=== PATIENT | female | born 1930 | race Caucasian/White ===

== ENCOUNTER 2016-10-10 13:32 | Emergency (ER) | payer BC ==
[~2016-10-10] VITALS: Ht 172.7 cm; Wt 97.0 kg
[~2016-10-10 13:32] MED LIST: ACET-1256 PO; ATOR10TA82 PO; BIOT1CAP4 PO; CAND32TA2 PO; CHOL20009 PO; COEN1CAP10 PO; CTP/1 PO; FAMO20TA11 PO; FLNIN/ NAE; MAGNTAB4 PO; NEBI20TA2 PO; PLN5 PO; RIVA1TAB4 PO; TRIA37.5 PO
[2016-10-10 13:41] VITALS: TEMP 37.5; Ht 172.7 cm; Wt 97.0 kg
[2016-10-10] MEDS ORDERED: ACETAMINOPHEN 325 MG TAB PO STA (13:48)
[2016-10-10] MEDS ORDERED: ONDANSETRON INJ 2 MG/ML 2 ML VIAL IV PRN (14:00)
[2016-10-10] MEDS ORDERED: SODIUM CHLORIDE 0.9% 1000ML 1,000 ML IV ONE (14:00)
--- NOTE | 2016-10-10 14:01 | EMERGENCY ROOM VISIT NOTE ---
History Report prepared by Chelsie: Codey Gonzales Under the Supervision of: Dr. Gopi Marie M.D. First contact with patient: 13:38 Stated Complaint: SHOULDER PAIN History of Present Illness The patient is an 86 year old female who presents to the Emergency Room with complaints of constant nausea beginning four days ago. She rates her current discomfort a 4/10 in severity. The patient states that she had surgery on her shoulder four days ago and was given oxycodone. She notes that she is still in pain, and she increased her dosage to the recommended amount because she was originally taking half. She states that she was given Zofran for nausea, but does not know if it is helping because she is still feeling sick. The patient notes that she has been avoiding fluids because it makes her go to the bathroom. She reports that it is painful to move because she had an IV in the top of her foot during surgery. The patient states that she has only take Tylenol before, other than her prescribed narcotics, because her doctor told her to avoid Motrin since she has a history of hypertension. She notes that she just started Xarelto yesterday. The patient states that she has a history of a mastectomy. She reports that when she was on Vicodin she vomited and went into atrial fibulation. Source of History: patient Onset: 4 days ago Position: other (global) Symptom Intensity: 4/10 Quality: other (nausea) Timing: constant Note: Associated symptoms: shoulder and foot pain Review of Systems All systems have been listed, reviewed, and are negative other than those previously mentioned. Please see Additional Medical History Sheet. Past Medical & Surgical Medical Problems: (1) Atrial fibrillation (2) Carcinoma in situ (3) Hemangioma Surgical Problems: (1) H/O mastectomy (2) H/O: hysterectomy (3) S/P total knee replacement Family History Cancer Heart disease Social History Smoking Status: Never Smoker Alcohol Use: none Drug Use: none Marital Status: Housing Status: lives with family Occupation Status: retired Current/Historical Medications Scheduled Acetaminophen (Tylenol), 1,000 MG PO PRN Atorvastatin (Lipitor), 10 MG PO QPM Candesartan Cilexetil (Atacand), 32 MG PO QAM Cholecalciferol (Vitamin D), 2,000 INTER.UNIT PO QAM Clonidine Hcl (Catapres), 0.1 MG PO BID Clotrimazole W/ Betamethasone (Lotrisone), 1 APPLN TOP BID Famotidine (Pepcid), 20 MG PO QAM Felodipine (Felodipine ER), 5 MG PO BID Fluticasone Propionate (Fluticasone Propionate), 1 SPRAYS VALERIE QAM Magnesium Chloride (Slow-Mag Tab), 64 MG PO DAILY Nebivolol Hcl (Bystolic), 20 MG PO QAM Rivaroxaban (Xarelto), 20 MG PO QPM Tamoxifen (Nolvadex), 20 MG PO DAILY Triamterene/Hctz (Dyazide 37.5MG/25MG), 1 TAB PO QAM Scheduled PRN Oxycodone Ir (Roxicodone Ir), 1 TAB PO Q4H PRN for Severe Pain Allergies Coded Allergies: Amlodipine (Verified Allergy, Unknown, UNKNOWN, 10/10/16) Benazepril (Verified Allergy, Unknown, UNKNOWN, 10/10/16) Ciprofloxacin (Verified Allergy, Unknown, DIZZY, 10/10/16) Enalapril (Verified Allergy, Unknown, UNKNOWN, 10/10/16) Lisinopril (Verified Allergy, Unknown, UNKNOWN, 10/10/16) Metoprolol (Verified Allergy, Unknown, DIZZY,DEPRESSED, 10/10/16) Phenobarbital (Verified Allergy, Unknown, HIVES, 10/10/16) Simvastatin (Verified Allergy, Unknown, PT NOT AWARE HAVING TAKEN MED-NO INFORMATION, 10/10/16) Spironolactone (Verified Allergy, Unknown, UNKNOWN, 10/10/16) Tramadol (Verified Allergy, Unknown, NAUSEA, 10/10/16) Codeine (Verified Adverse Reaction, Mild, HEADACHE,NAUSEA AND VOMITING, ) Hydrocodone (Verified Adverse Reaction, Mild, EXTENDED NAUSEA AND VOMITING , 10/10/16) Physical Exam Vital Signs Date Time Temp Pulse Resp B/P Pulse Ox O2 Delivery O2 Flow Rate FiO2 10/10/16 16:30 67 18 164/54 95 10/10/16 14:33 64 18 171/82 94 Room Air 10/10/16 13:41 37.5 88 153/80 92 Room Air Physical Exam GENERAL: Patient awake, alert, oriented x 3. Patient follows commands. Patient does not appear toxic. Patient is adequately hydrated and well- nourished. SKIN: No erythema, pallor, cyanosis or rash HEENT: Normal head, pupils equal, reactive to light and accommodation. LUNGS: Clear to auscultation. No wheezes, no rales, no rhonchi. HEART: No murmurs. No gallops. No rubs ABDOMEN: No masses, no rebound, no hepatomegaly or splenomegaly. Vague tenderness, obese EXTREMITIES: No signs of trauma. No pedal or pretibial edema. No calf or thigh tenderness. Left shoulder is bandaged and in a sling. Left foot: small puncture wound on the dorsum side, no erythema or edema. NEUROLOGIC: Cranial nerves II-XII within normal limits. No gross motor sensory function deficits. Medical Decision & Procedures Laboratory Results 10/10/16 14:00 10/10/16 14:00 Test 10/10/16 14:00 Red Blood Count 2.97 M/uL (4.2-5.4) Mean Corpuscular Volume 95.3 fL (80-100) Mean Corpuscular Hemoglobin 31.0 pg (25-34) Mean Corpuscular Hemoglobin Concent 32.5 g/dl (32-36) RDW Standard Deviation 43.5 fL (36.4-46.3) RDW Coefficient of Variation 12.6 % (11.5-14.5) Mean Platelet Volume 10.0 fL (7.4-10.4) Anion Gap 5.0 mmol/L (3-11) Est Creatinine Clear Calc Drug Dose 58.9 ml/min Estimated GFR () 72.4 Estimated GFR (Non- 62.5 BUN/Creatinine Ratio 23.6 (10-20) Calcium Level 8.6 mg/dl (8.5-10.1) Troponin I 0.027 ng/ml (0-0.045) Laboratory results as stated above per my review. Medications Administered Medications (Trade) Dose Ordered Sig/Jose Cruz Route Start Time Stop Time Status Last Admin Dose Admin Ondansetron HCl 4 mg 4 mg Q1HWA PRN IV 10/10/16 14:00 10/10/16 16:42 DC 10/10/16 14:10 4 MG Sodium Chloride (Nss 1000ml) 1,000 ml @ 1,000 mls/hr Q1H ONCE IV 10/10/16 14:00 10/10/16 14:59 DC 10/10/16 14:10 1,000 MLS/HR Acetaminophen (Tylenol Tab) 1,000 mg NOW STAT PO 10/10/16 13:48 10/10/16 13:50 DC 10/10/16 14:10 1,000 MG ECG Indication: nausea Rate (beats per minute): 66 Rhythm: sinus rhythm Findings: PVC (occasional), no acute ischemic change ED Course 1340: Past medical records reviewed. The patient was evaluated in room A03. A complete history and physical examination was performed. 1348: Ordered Acetaminophen 1000mg PO 1400: Ordered Sodium Chloride 1000 ml @ 1000 mls/hr IV, Zofran Inj 4mg IV 1450: I reevaluated the patient, and I discussed her exam findings. She is feeling better, but she still has discomfort. The patient requests that she be evaluated for further treatment. 1534: Upon reevaluation, the patient appeared to have improvement of her symptoms. She verbalized agreement of the treatment plan. The patient was discharged home. Medical Decision I considered multiple diagnoses including: medical reaction, dehydration, metabolic disorder. Medication Reconciliation: I attest that I have personally reviewed the patient' s current medication list. Blood pressure Screening: Patient was found to have normal blood pressure on screening and does not require follow up. Multiple labs were obtained. Please see above. The patient was given IV Zofran and fluids. Patient also has some tenderness over the dorsum of her left foot where the IV was. She does not appear to have cellulitis or abscess.The patient improved. She was given oral Tylenol. The patient has gastric irritation from the narcotics. She also cannot take NSAIDs. Patient will have to take Tylenol for pain relief. She has Zofran at home for home use. We also investigated the possibility of observation at the rehabilitation hospital. She does not qualify. We've also investigated having home health come to her house. Impression Primary Impression: Medication reaction Additional Impressions: Anemia Postoperative pain, acute, shoulder Scribe Attestation The scribe's documentation has been prepared under my direction and personally reviewed by me in its entirety. I confirm that the note above accurately reflects all work, treatment, procedures, and medical decision making performed by me. Departure Information Dispostion Home / Self-Care Referrals Isiah Mojica M.D. (PCP) Alonzo Duarte, DO Additional Instructions 1000 mg of Tylenol every 4-6 hours as needed for pain. Drink extra fluids. Zofran as needed for nausea. Follow-up with orthopedics as scheduled. Stop all narcotics. Problem Qualifiers
[2016-10-10 14:18] LABS: HEMATOCRIT 28.3 % (37-47); MEAN CELL VOLUME 95.3 fL (80-100); MEAN CORPUSCULAR HGB CONC 32.5 g/dl (32-36); PLATELET COUNT 240 K/uL (130-400); RED BLOOD COUNT 2.97 M/uL (4.2-5.4); WHITE BLOOD COUNT 10.63 K/uL (4.8-10.8)
[2016-10-10 14:35] LABS: BUN/CREATININE RATIO 23.6 (10-20); CALCIUM 8.6 mg/dl (8.5-10.1); CREATININE 0.85 mg/dl (0.60-1.20); POTASSIUM 4.6 mmol/L (3.5-5.1)
[2016-10-10] MEDS ORDERED: SLWMEC PO (15:35)
[2016-10-10] MEDS ORDERED: TAMO20TA9 PO (15:38)
[2016-10-10] MEDS ORDERED: CLOTCRE33 TOP (15:38)
[2016-10-10] MEDS ORDERED: OXYC1TAB3 PO (15:39)
[2016-10-10 16:30] VITALS: BP 164/54; PULSE 67; O2SAT 95
[2016-10-15] MEDS ORDERED: TRAM-10 PO (15:34)
== END 2016-10-10 16:32 | disposition home or self-care (01) ==
LOC: EDBD 13:32 → C.EDA 13:33
DX: T88.7XXA Unspecified adverse effect of drug or medicament, initial encounter (principal); D64.9 Anemia, unspecified; G89.18 Other acute postprocedural pain; I49.3 Ventricular premature depolarization; I48.91 Unspecified atrial fibrillation; Z79.899 Other long term (current) drug therapy; Z82.49 Family history of ischemic heart disease and other diseases of the circulatory system; R11.0 Nausea

== ENCOUNTER 2016-10-12 12:39 | Inpatient (IN) | payer BC, OTHER ==
[~2016-10-12] VITALS: Ht 152.4 cm; Wt 95.1 kg
[~2016-10-12 12:39] MED LIST changes: -BIOT1CAP4 PO; +CLOTCRE33 TOP; -COEN1CAP10 PO; -MAGNTAB4 PO; +OXYC1TAB3 PO; +SLWMEC PO; +TAMO20TA9 PO
[2016-10-12] MEDS ORDERED: SODIUM CHLORIDE 0.9% 1000ML 1,000 ML IV STA (13:47)
[2016-10-12 14:18] LABS: URINE APPEARANCE CLEAR (CLEAR); URINE BILIRUBIN NEG (NEG); URINE COLOR YELLOW; URINE NITRITE NEG (NEG); URINE PH 8.5 (4.5-7.5); URINE SPECIFIC GRAVITY 1.008 (1.000-1.030); UROBILINOGEN NEG (NEG); ZZUR CULT IF INDIC CLEAN CATCH NO
[2016-10-12 14:28] LABS: MANUAL MICROSCOPIC REQUIRED? NO; REVIEW REQ? NO
--- NOTE | 2016-10-12 14:29 | EMERGENCY ROOM VISIT NOTE ---
History First contact with patient: 13:34 Chief Complaint: NAUSEA Stated Complaint: NAUSEA Nursing Triage Summary: Total left shoulder replacement a week ago, placed on oxycodone and is allergic to opiates, no BM in a week, nauseated with emesis earlier in week. Seen here in ED on Tuesday for vomiting. Now nauseated again without emesis today. Dizzy on standing. History of Present Illness The patient is a 86 year old female who presents to the Emergency Room with complaints of nausea and dizziness. The patient had a left shoulder replacement 1 week ago in [facility]. She reports that the surgery had to be performed at [facility] because she has hemangiomas in her throat and no one in the area will intubate her. She does report that her shoulder is painful. She has been taking Tylenol for pain because she has adverse reactions to the oxycodone. She states she also has plantar fasciitis in her left foot which makes it very difficult to walk. She was told that she is allowed to change the dressing and shower, but she is not able to do this due to discomfort. She has not had a bowel movement for one week. She states that her abdomen feels "gassy" and bloated. She states that when she stands up and walks around, she becomes nauseous and dizzy. She states that she feels okay when she is lying down. She has not had much to eat or drink. She was seen here 2 days ago and was told to take Zofran for nausea but states that she has not been taking this because she does not feel like she needs it. She denies any headaches, neck pain, fevers or vomiting. The patient has a history of intermittent atrial fibrillation. She also reports a history of arthritis. Review of Systems A complete 10 point review of systems was reviewed with the patient with pertinent positives and negatives as per history of present illness. All else were negative. 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 (4) Hemangioma (5) Orthostatic hypotension Surgical Problems: (1) H/O mastectomy (2) H/O: hysterectomy (3) S/P total knee replacement Family History Cancer Heart disease Social History Smoking Status: Never Smoker Alcohol Use: none Drug Use: none Marital Status: Housing Status: lives with family Occupation Status: retired Current/Historical Medications Scheduled Acetaminophen (Tylenol), 1,000 MG PO PRN Atorvastatin (Lipitor), 10 MG PO QPM Candesartan Cilexetil (Atacand), 32 MG PO QAM Cholecalciferol (Vitamin D), 2,000 INTER.UNIT PO QAM Clonidine Hcl (Catapres), 0.1 MG PO BID Clotrimazole W/ Betamethasone (Lotrisone), 1 APPLN TOP BID Famotidine (Pepcid), 20 MG PO QAM Felodipine (Felodipine ER), 5 MG PO BID Fluticasone Propionate (Fluticasone Propionate), 1 SPRAYS VALERIE QAM Magnesium Chloride (Slow-Mag Tab), 64 MG PO DAILY Nebivolol Hcl (Bystolic), 20 MG PO QAM Rivaroxaban (Xarelto), 20 MG PO QPM Tamoxifen (Nolvadex), 20 MG PO DAILY Triamterene/Hctz (Dyazide 37.5MG/25MG), 1 TAB PO QAM Scheduled PRN Oxycodone Ir (Roxicodone Ir), 1 TAB PO Q4H PRN for Severe Pain Allergies Coded Allergies: Phenobarbital (Verified Allergy, Intermediate, HIVES, 10/12/16) Amlodipine (Verified Allergy, Unknown, UNKNOWN, 10/10/16) Benazepril (Verified Allergy, Unknown, UNKNOWN, 10/10/16) Enalapril (Verified Allergy, Unknown, UNKNOWN, 10/10/16) Lisinopril (Verified Allergy, Unknown, UNKNOWN, 10/10/16) Simvastatin (Verified Allergy, Unknown, PT NOT AWARE HAVING TAKEN MED-NO INFORMATION, 10/10/16) Spironolactone (Verified Allergy, Unknown, UNKNOWN, 10/10/16) Codeine (Verified Adverse Reaction, Mild, HEADACHE,NAUSEA AND VOMITING, ) Hydrocodone (Verified Adverse Reaction, Mild, EXTENDED NAUSEA AND VOMITING , 10/10/16) Tramadol (Verified Adverse Reaction, Mild, NAUSEA, 10/12/16) Ciprofloxacin (Verified Adverse Reaction, Unknown, DIZZY, 10/12/16) Metoprolol (Verified Adverse Reaction, Unknown, DIZZY,DEPRESSED, 10/12/16) Physical Exam Vital Signs Date Time Temp Pulse Resp B/P Pulse Ox O2 Delivery O2 Flow Rate FiO2 10/12/16 16:33 77 20 159/67 95 Room Air 10/12/16 14:22 66 221/70 69 182/86 80 150/98 10/12/16 14:18 150/98 10/12/16 14:17 182/86 10/12/16 14:15 221/70 10/12/16 13:39 67 18 99 10/12/16 13:18 211/101 10/12/16 13:09 78 20 10/12/16 12:55 73 10/12/16 12:52 36.7 73 23 100 Room Air Physical Exam VITALS: Vitals are noted on the nurse's note and reviewed by myself. Vital signs stable. GENERAL: This is an 86-year-old female, in no acute distress, nondiaphoretic, well-developed well-nourished. SKIN: There is a well-healing surgical incision over the anterior left shoulder. There is no surrounding erythema or edema to suggest infection. EARS: External auditory canals clear, tympanic membranes pearly rosas without erythema or effusion bilaterally. EYES: Pupils equal round and reactive to light and accommodation. MOUTH: Mucous membranes slightly dry. HEART: Regular rate and rhythm without murmurs gallops or rubs. LUNGS: Clear to auscultation bilaterally without wheezes, rales or rhonchi. ABDOMEN: Mildly distended but soft. There is no significant tenderness to palpation. NEURO: Patient was alert and oriented to person place and time. Medical Decision & Procedures ER Provider Diagnostic Interpretation: PA CHEST WITH ABDOMINAL SERIES FINDINGS: A PA chest radiograph is compared to study dated 07/11/2014. The heart is enlarged and there is atherosclerotic calcification of the thoracic aorta. The pulmonary vasculature is noncongested. Chronic interstitial thickening is unchanged. There is no airspace consolidation or large pleural effusion. No pneumothorax is seen. The skeletal structures are osteopenic. Degenerative change and scoliosis are noted in the thoracic spine. A left shoulder arthroplasty is in place and skin clips project over the left shoulder. Surgical clips are noted in the right axilla. Supine and erect abdominal radiographs are obtained. No prior studies are available for comparison at the time of dictation. There is a nonobstructed abdominal bowel gas pattern. Mild to moderate colonic fecal retention is observed. No evidence of intraperitoneal free air is seen. Phleboliths are identified in the pelvis. There is lumbosacral spondylosis and scoliosis. The bony pelvis appears intact. IMPRESSION: 1. Cardiomegaly with no acute cardiopulmonary abnormality. 2. Nonobstructed abdominal bowel gas pattern. Laboratory Results 10/12/16 14:09 Red Blood Count 3.20, Mean Corpuscular Volume 92.8, Mean Corpuscular Hemoglobin 29.7, Mean Corpuscular Hemoglobin Concent 32.0, Mean Platelet Volume 9.6, Neutrophils (%) (Auto) 64.6, Lymphocytes (%) (Auto) 25.6, Monocytes (%) (Auto) 8.5, Eosinophils (%) (Auto) 0.6, Basophils (%) (Auto) 0.4, Neutrophils # (Auto) 6.26, Lymphocytes # (Auto) 2.48, Monocytes # (Auto) 0.82, Eosinophils # (Auto) 0.06, Basophils # (Auto) 0.04 10/12/16 14:09 10/12/16 15:30 Test 10/12/16 13:10 10/12/16 14:09 10/12/16 15:30 Urine Color YELLOW Urine Appearance CLEAR (CLEAR) Urine pH 8.5 (4.5-7.5) Urine Specific [place] 1.008 (1.000-1.030) Urine Protein NEG (NEG) Urine Glucose (UA) NEG (NEG) Urine Ketones NEG (NEG) Urine Occult Blood NEG (NEG) Urine Nitrite NEG (NEG) Urine Bilirubin NEG (NEG) Urine Urobilinogen NEG (NEG) Urine Leukocyte Esterase NEG (NEG) White Blood Count 9.69 K/uL (4.8-10.8) Red Blood Count 3.20 M/uL (4.2-5.4) Hemoglobin 9.5 g/dL (12.0-16.0) Hematocrit 29.7 % (37-47) Mean Corpuscular Volume 92.8 fL (80-100) Mean Corpuscular Hemoglobin 29.7 pg (25-34) Mean Corpuscular Hemoglobin Concent 32.0 g/dl (32-36) Platelet Count 339 K/uL (130-400) Mean Platelet Volume 9.6 fL (7.4-10.4) Neutrophils (%) (Auto) 64.6 % Lymphocytes (%) (Auto) 25.6 % Monocytes (%) (Auto) 8.5 % Eosinophils (%) (Auto) 0.6 % Basophils (%) (Auto) 0.4 % Neutrophils # (Auto) 6.26 K/uL (1.4-6.5) Lymphocytes # (Auto) 2.48 K/uL (1.2-3.4) Monocytes # (Auto) 0.82 K/uL (0.11-0.59) Eosinophils # (Auto) 0.06 K/uL (0-0.5) Basophils # (Auto) 0.04 K/uL (0-0.2) RDW Standard Deviation 42.6 fL (36.4-46.3) RDW Coefficient of Variation 12.5 % (11.5-14.5) Immature Granulocyte % (Auto) 0.3 % Immature Granulocyte # (Auto) 0.03 K/uL (0.00-0.02) Anion Gap 7.0 mmol/L (3-11) Est Creatinine Clear Calc Drug Dose 48.7 ml/min Estimated GFR () 72.4 Estimated GFR (Non- 62.5 BUN/Creatinine Ratio 15.3 (10-20) Calcium Level 8.9 mg/dl (8.5-10.1) Total Bilirubin 0.9 mg/dl (0.2-1) Alanine Aminotransferase (ALT/SGPT) 19 U/L (12-78) Alkaline Phosphatase 32 U/L (45-117) Total Protein 6.4 gm/dl (6.4-8.2) Albumin 3.0 gm/dl (3.4-5.0) Globulin 3.4 gm/dl (2.5-4.0) Albumin/Globulin Ratio 0.9 (0.9-2) Thyroid Stimulating Hormone (TSH) 1.910 uIu/ml (0.300-4.500) Magnesium Level 2.1 mg/dl (1.8-2.4) Aspartate Amino Transf (AST/SGOT) 19 U/L (15-37) Medications Administered Medications (Trade) Dose Ordered Sig/Jose Cruz Route Start Time Stop Time Status Last Admin Dose Admin Sodium Chloride (Nss 1000ml) 1,000 ml @ 999 mls/hr Q1H1M STAT IV 10/12/16 13:47 10/12/16 14:47 DC 10/12/16 14:58 999 MLS/HR Clonidine HCl (Catapres Tab) 0.1 mg NOW ONCE PO 10/12/16 15:00 10/12/16 15:01 DC 10/12/16 15:00 0.1 MG Acetaminophen (Tylenol Tab) 650 mg NOW STAT PO 10/12/16 15:01 10/12/16 15:03 DC 10/12/16 15:13 650 MG Acetaminophen (Tylenol Tab) 650 mg Q4H PRN PO 10/12/16 18:30 11/11/16 18:29 10/13/16 12:58 650 MG Senna (Senokot Tab) 8.6 mg TODAY@1825 PO 10/12/16 18:25 10/12/16 23:59 DC 10/12/16 21:59 8.6 MG Magnesium Hydroxide (Milk Of Magnesia Susp) 30 ml TODAY@1825 PO 10/12/16 18:25 10/12/16 23:59 DC 10/12/16 21:58 30 ML ED Course The patient was evaluated as above. Labs were drawn and IV access was obtained. I was contacted by one of the nurses from Dr. Mojica's office. They stated that they had recently evaluated the patient and felt she would benefit from a [facility] admission. I spoke with case management. PT and OT will evaluate the patient and we will attempt to get a bed at [facility]. No beds were available at [facility]. The patient will be admitted here for observation pending placement there. The patient is agreeable to this treatment plan. Case was discussed with the [facility] hospitalist, Dr. Zapien. They agreed to evaluate the patient for admission. Medical Decision Differential diagnosis includes dehydration, postoperative infection, electrolyte abnormalities, bowel obstruction, among others. The patient is an 86-year-old female who presents today complaining of constipation and difficulty taking care of herself at home. The patient had a recent shoulder replacement and is having difficulty caring for herself at home. Her primary care provider's office feels that she would benefit from a stay at a rehabilitation facility. The patient is agreeable to this. We were unable to find her a bed at [facility], so the patient was admitted for observation pending bed placement. Abdominal series today showed no obstruction. Labs today were unremarkable. There is a mild anemia which has improved since surgery. Her orthostatic vital signs are positive. The patient was independently evaluated by Dr. Beal, ED attending physician, who agreed with my assessment and treatment plan. Impression Primary Impression: Orthostatic hypotension Departure Information Referrals Isiah Mojica M.D. (PCP) Patient Instructions [facility]
[2016-10-12 14:30] LABS: BASO % 0.4 %; BASO ABS # 0.04 K/uL (0-0.2); COMPLETE YES; EOS % 0.6 %; HEMATOCRIT 29.7 % (37-47); IG% 0.3 %; LYMPH % 25.6 %; LYMPH ABS # 2.48 K/uL (1.2-3.4); MEAN CELL VOLUME 92.8 fL (80-100); MEAN CORPUSCULAR HEMOGLOBIN 29.7 pg (25-34); MEAN PLATELET VOLUME 9.6 fL (7.4-10.4); MONO % 8.5 %; NEUT % 64.6 %; PLATELET COUNT 339 K/uL (130-400); WHITE BLOOD COUNT 9.69 K/uL (4.8-10.8)
[2016-10-12 14:58] LABS: ALB/GLOB RATIO 0.9 (0.9-2); ALKALINE PHOSPHATASE 32 U/L (45-117); ALT/SGPT 19 U/L (12-78); BLOOD UREA NITROGEN 13 mg/dl (7-18); BUN/CREATININE RATIO 15.3 (10-20); CALCIUM 8.9 mg/dl (8.5-10.1); CARBON DIOXIDE 27 mmol/L (21-32); CHLORIDE 107 mmol/L (98-107); CREATININE 0.85 mg/dl (0.60-1.20); GLUCOSE 127 mg/dl (70-99); SODIUM 141 mmol/L (136-145)
[2016-10-12] MEDS ORDERED: CLONIDINE HCL 0.1 MG TAB PO ONE (15:00)
[2016-10-12] MEDS ORDERED: ACETAMINOPHEN 325 MG TAB PO STA (15:01)
[2016-10-12 16:00] LABS: POTASSIUM 4.1 mmol/L (3.5-5.1)
[2016-10-12 16:05] LABS: MAGNESIUM 2.1 mg/dl (1.8-2.4)
--- NOTE | 2016-10-12 16:17 | DIAGNOSTIC IMAGING REPORT ---
PA CHEST WITH ABDOMINAL SERIES CLINICAL HISTORY: Constipation. Nausea. FINDINGS: A PA chest radiograph is compared to study dated 07/11/2014. The heart is enlarged and there is atherosclerotic calcification of the thoracic aorta. The pulmonary vasculature is noncongested. Chronic interstitial thickening is unchanged. There is no airspace consolidation or large pleural effusion. No pneumothorax is seen. The skeletal structures are osteopenic. Degenerative change and scoliosis are noted in the thoracic spine. A left shoulder arthroplasty is in place and skin clips project over the left shoulder. Surgical clips are noted in the right axilla. Supine and erect abdominal radiographs are obtained. No prior studies are available for comparison at the time of dictation. There is a nonobstructed abdominal bowel gas pattern. Mild to moderate colonic fecal retention is observed. No evidence of intraperitoneal free air is seen. Phleboliths are identified in the pelvis. There is lumbosacral spondylosis and scoliosis. The bony pelvis appears intact. IMPRESSION: 1. Cardiomegaly with no acute cardiopulmonary abnormality. 2. Nonobstructed abdominal bowel gas pattern. Electronically signed by: Roque Olivarez M.D. 10/12/2016 4:15 PM Dictated Date/Time: 10/12/2016 4:13 PM
--- NOTE | 2016-10-12 17:24 | EMERGENCY ROOM VISIT NOTE ---
ED Visit Note First contact with patient: 13:34 The patient was seen and examined with Dixie Hurtado PA-C. I agree with the history, physical and findings. Please see the note for disposition and details.
[2016-10-12] MEDS ORDERED: SENNA 8.6 MG TAB PO SCH (18:25)
[2016-10-12] MEDS ORDERED: MAGNESIUM HYDROXIDE SUSP 30 ML UDC PO SCH (18:25)
[2016-10-12] MEDS ORDERED: ENOXAPARIN 40 MG/0.4 ML SYR SQ SCH (18:30)
[2016-10-12] MEDS ORDERED: ONDANSETRON INJ 2 MG/ML 2 ML VIAL IV PRN (18:30)
[2016-10-12] MEDS ORDERED: OXYCODONE HCL IR 5 MG TAB (IMMEDIATE RELEASE) PO PRN (18:30)
--- NOTE | 2016-10-12 18:46 | History and Physical ---
History & Physical Date & Time of Service: October 12, 2016 at 18:31 Chief Complaint: Nausea Primary Care Physician: Isiah Mojica M.D. History of Present Illness Source: patient 86 y/o F c/o nausea and lightheadedness. Pt had a L shoulder surgery at [facility] last week. She was sent home and has not done well since that time. She was having n/v and was seen in the ED a few days ago. It was decided that this was related to pain meds and those were stopped at that time. Since then, she has had no further emesis. Her nausea is better but still present. She has been lightheaded regularly and feels very off balance when she walks. She has not had a bowel movement since just before her surgery, about 1 week. She does not have abd pain, but feels constipated. She has decreased PO intake due to poor appetite and "nothing tastes good". Pt denies fever, SOB, chest pain. Pt has not been taking her diuretic due to having so many issues with ambulation and was trying to minimize her trips to the bathroom to help with this. Her lives with her, but he is 85 y/o also and she worries about falling and injuring him in the process as well. She does note an increase in her LE swelling with not taking the diuretic. She has increased LE pain due to [facility] needing to use her feet for IV access and blood draws. ROS as noted above, otherwise neg. ED attempted to place pt at [facility], however they do not have any beds available. Past Medical/Surgical History Medical Problems: (1) Atrial fibrillation Status: Chronic Surgical Problems: (1) H/O mastectomy Status: Resolved (2) H/O: hysterectomy Status: Resolved (3) S/P total knee replacement Status: Resolved Recent L shoulder surgery with [facility] Throat hemangiomas Hx of breast ca GERD Hyperlipidemia Family History Cancer Heart disease Social History Smoking Status: Never Smoker Alcohol Use: occasionally (with dinner when out on occasion) Drug Use: none Marital Status: Housing status: lives with family Occupational Status: retired Immunizations History of Influenza Vaccine: N/A History of Tetanus Vaccine?: Yes History of Pneumococcal: Yes History of Hepatitis B Vaccine: No Multi-Drug Resistant Organisms History of MDRO: No Allergies Coded Allergies: Amlodipine (Verified Allergy, Unknown, UNKNOWN, 10/10/16) Benazepril (Verified Allergy, Unknown, UNKNOWN, 10/10/16) Ciprofloxacin (Verified Allergy, Unknown, DIZZY, 10/10/16) Enalapril (Verified Allergy, Unknown, UNKNOWN, 10/10/16) Lisinopril (Verified Allergy, Unknown, UNKNOWN, 10/10/16) Metoprolol (Verified Allergy, Unknown, DIZZY,DEPRESSED, 10/10/16) Phenobarbital (Verified Allergy, Unknown, HIVES, 10/10/16) Simvastatin (Verified Allergy, Unknown, PT NOT AWARE HAVING TAKEN MED-NO INFORMATION, 10/10/16) Spironolactone (Verified Allergy, Unknown, UNKNOWN, 10/10/16) Tramadol (Verified Allergy, Unknown, NAUSEA, 10/10/16) Codeine (Verified Adverse Reaction, Mild, HEADACHE,NAUSEA AND VOMITING, ) Hydrocodone (Verified Adverse Reaction, Mild, EXTENDED NAUSEA AND VOMITING , 10/10/16) Home Medications Scheduled Acetaminophen (Tylenol), 1,000 MG PO PRN Atorvastatin (Lipitor), 10 MG PO QPM Candesartan Cilexetil (Atacand), 32 MG PO QAM Cholecalciferol (Vitamin D), 2,000 INTER.UNIT PO QAM Clonidine Hcl (Catapres), 0.1 MG PO BID Clotrimazole W/ Betamethasone (Lotrisone), 1 APPLN TOP BID Famotidine (Pepcid), 20 MG PO QAM Felodipine (Felodipine ER), 5 MG PO BID Fluticasone Propionate (Fluticasone Propionate), 1 SPRAYS VALERIE QAM Magnesium Chloride (Slow-Mag Tab), 64 MG PO DAILY Nebivolol Hcl (Bystolic), 20 MG PO QAM Rivaroxaban (Xarelto), 20 MG PO QPM Tamoxifen (Nolvadex), 20 MG PO DAILY Triamterene/Hctz (Dyazide 37.5MG/25MG), 1 TAB PO QAM Scheduled PRN Oxycodone Ir (Roxicodone Ir), 1 TAB PO Q4H PRN for Severe Pain Physical Exam Vital Signs Date Time Temp Pulse Resp B/P Pulse Ox O2 Delivery O2 Flow Rate FiO2 10/12/16 16:33 77 20 159/67 95 Room Air 10/12/16 14:22 66 221/70 69 182/86 80 150/98 10/12/16 14:18 150/98 10/12/16 14:17 182/86 10/12/16 14:15 221/70 10/12/16 13:39 67 18 99 10/12/16 13:18 211/101 10/12/16 13:09 78 20 10/12/16 12:55 73 10/12/16 12:52 36.7 73 23 100 Room Air General Appearance: WD/WN, no apparent distress Head: normocephalic, atraumatic Respiratory/Chest: normal breath sounds, no respiratory distress Cardiovascular: regular rate, rhythm, normal peripheral pulses Abdomen/GI: non tender, soft, + distended Extremities/Musculoskelatal: + pedal edema (1+ pitting), + pertinent finding (b /l LE and feet are TTP) Neurologic/Psych: alert, normal mood/affect, oriented x 3 Skin: normal color, warm/dry Diagnostics Laboratory Results Results Past 24 Hours Test 10/12/16 13:10 10/12/16 14:09 10/12/16 15:30 Range/Units Urine Color YELLOW Urine Appearance CLEAR CLEAR Urine pH 8.5 4.5-7.5 Urine Specific [place] 1.008 1.000-1.030 Urine Protein NEG NEG Urine Glucose (UA) NEG NEG Urine Ketones NEG NEG Urine Occult Blood NEG NEG Urine Nitrite NEG NEG Urine Bilirubin NEG NEG Urine Urobilinogen NEG NEG Urine Leukocyte Esterase NEG NEG White Blood Count 9.69 4.8-10.8 K/uL Red Blood Count 3.20 4.2-5.4 M/uL Hemoglobin 9.5 12.0-16.0 g/dL Hematocrit 29.7 37-47 % Mean Corpuscular Volume 92.8 80-100 fL Mean Corpuscular Hemoglobin 29.7 25-34 pg Mean Corpuscular Hemoglobin Concent 32.0 32-36 g/dl Platelet Count 339 130-400 K/uL Mean Platelet Volume 9.6 7.4-10.4 fL Neutrophils (%) (Auto) 64.6 % Lymphocytes (%) (Auto) 25.6 % Monocytes (%) (Auto) 8.5 % Eosinophils (%) (Auto) 0.6 % Basophils (%) (Auto) 0.4 % Neutrophils # (Auto) 6.26 1.4-6.5 K/uL Lymphocytes # (Auto) 2.48 1.2-3.4 K/uL Monocytes # (Auto) 0.82 0.11-0.59 K/uL Eosinophils # (Auto) 0.06 0-0.5 K/uL Basophils # (Auto) 0.04 0-0.2 K/uL RDW Standard Deviation 42.6 36.4-46.3 fL RDW Coefficient of Variation 12.5 11.5-14.5 % Immature Granulocyte % (Auto) 0.3 % Immature Granulocyte # (Auto) 0.03 0.00-0.02 K/uL Sodium Level 141 136-145 mmol/L Potassium Level 4.1 3.5-5.1 mmol/L Chloride Level 107 98-107 mmol/L Carbon Dioxide Level 27 21-32 mmol/L Anion Gap 7.0 3-11 mmol/L Blood Urea Nitrogen 13 7-18 mg/dl Creatinine 0.85 0.60-1.20 mg/dl Est Creatinine Clear Calc Drug Dose 48.7 ml/min Estimated GFR () 72.4 Estimated GFR (Non- 62.5 BUN/Creatinine Ratio 15.3 10-20 Random Glucose 127 70-99 mg/dl Calcium Level 8.9 8.5-10.1 mg/dl Magnesium Level 2.1 1.8-2.4 mg/dl Total Bilirubin 0.9 0.2-1 mg/dl Aspartate Amino Transf (AST/SGOT) 19 15-37 U/L Alanine Aminotransferase (ALT/SGPT) 19 12-78 U/L Alkaline Phosphatase 32 45-117 U/L Total Protein 6.4 6.4-8.2 gm/dl Albumin 3.0 3.4-5.0 gm/dl Globulin 3.4 2.5-4.0 gm/dl Albumin/Globulin Ratio 0.9 0.9-2 Thyroid Stimulating Hormone (TSH) 1.910 0.300-4.500 uIu/ml Diagnostic Radiology C/Abd XR: neg for acute issues other than increased bowel gas without obstruction Impression Assessment and Plan 86 y/o F who was admitted for observation on 10/12 for nausea and lightheadedness N/lightheadedness: + orthostatic VS Possible related to decreased PO intake post-op and decreased Hb post-op Monitor on tele PE is less likely given xarelto use TSH, UA neg Hypertensive emergency: has not been taking her medications properly due to post -op status and wanting to avoid further ambulation to the bathroom with her diuretic Resume and monitor Constipation: in the setting of pain meds, decreased activity, decreased PO MOM, senna Failure to thrive post-op: PT/OT Possible [facility] Afib: continue xarelto HTN: continue home meds as above Other: Full code Xarelto for DVT proph AHA diet Level of Care Telemetry Resuscitation Status FULL RESUSCITATION VTE Prophylaxis VTE Risk Assessment Done? Y/N: Yes Risk Level: Low
[2016-10-12] MEDS ORDERED: IV FLUIDS COMPLETED PRN (19:00)
[2016-10-12 20:59] VITALS: BP 194/78; PULSE 65; TEMP 36.9; O2SAT 96; Ht 152.4 cm; Wt 95.1 kg
[2016-10-12] MEDS: CLOTRIMAZOLE/BETAMETHASONE CR 15 GM TUBE EXT SCH (21:59)
[2016-10-12] MEDS: FELODIPINE 5 MG TABCR PO SCH (21:59)
[2016-10-12] MEDS: CLONIDINE HCL 0.1 MG TAB PO SCH (21:59)
[2016-10-12] MEDS: RIVAROXABAN 20 MG TAB PO SCH (21:59)
[2016-10-12] MEDS: ATORVASTATIN 10 MG TAB PO SCH (21:59)
[2016-10-12] MEDS: ACETAMINOPHEN 500 MG TAB PO PRN (22:37)
[2016-10-12 23:21] VITALS: BP 197/78; PULSE 65; TEMP 36.9; O2SAT 97
[2016-10-13] VITALS (13 sets, daily range): BP systolic 134–171; BP diastolic 62–74; PULSE 59–69; TEMP 36.5–36.8; O2SAT 96–97
[2016-10-13 06:29] LABS: HEMATOCRIT 26.8 % (37-47)
[2016-10-13] MEDS: ACETAMINOPHEN 325 MG TAB PO PRN ×3 (07:44→18:00)
[2016-10-13] MEDS: CLOTRIMAZOLE/BETAMETHASONE CR 15 GM TUBE EXT SCH ×2 (08:43→20:55)
[2016-10-13] MEDS: FLUTICASONE PROPIONATE NA SPR 16 GM BTL NAE SCH (08:44)
[2016-10-13] MEDS: CANDESARTAN 8 MG TAB PO SCH (08:44)
[2016-10-13] MEDS: NEBIVOLOL HCL 5 MG TAB PO SCH (08:45)
[2016-10-13] MEDS: TRIAMTERENE/HCTZ 37.5/25MG CAP PO SCH (08:46)
[2016-10-13] MEDS: FELODIPINE 5 MG TABCR PO SCH ×2 (08:49→20:44)
[2016-10-13] MEDS: TAMOXIFEN CITRATE 10 MG TAB PO SCH (08:49)
[2016-10-13] MEDS: SENNA 8.6 MG TAB PO SCH (08:49)
[2016-10-13] MEDS: FAMOTIDINE 20 MG TAB PO SCH (08:49)
[2016-10-13] MEDS: CHOLECALCIFEROL 1000 INTER.UNIT TAB PO SCH (08:50)
[2016-10-13] MEDS: MAGNESIUM CHLORIDE 64MG DELAYED REL TAB PO SCH (08:50)
[2016-10-13] MEDS: ACETAMINOPHEN 500 MG TAB PO PRN (08:54)
[2016-10-13] MEDS: CLONIDINE HCL 0.1 MG TAB PO SCH ×2 (09:37→20:44)
[2016-10-13] MEDS: MAGNESIUM HYDROXIDE SUSP 30 ML UDC PO SCH (09:37)
[2016-10-13] MEDS ORDERED: BISACODYL 10 MG SUPP PR STA (09:47)
[2016-10-13] MEDS ORDERED: BISACODYL 5 MG TABEC PO ONE (10:00)
[2016-10-13] MEDS ORDERED: SOD PHOSPHATE/SOD BIPHOSPHATE ENEMA 132 ML BTL PR PRN (10:00)
[2016-10-13] MEDS: POLYETHYLENE (MIRALAX) 17 GM PACK PO SCH (11:16)
--- NOTE | 2016-10-13 13:58 | Hospitalist Progress Note ---
Hospitalist Progress Note Date of Service October 13, 2016. (Destiny White PA-C) Subjective Pt evaluation today including: conversation w/ patient, physical exam, chart review, lab review, review of studies The patient was seen and examined this morning. Pt reports not feeling well because " I haven't pooped since before my surgery!". Pt underwent surgical fixation of the right shoulder on 10/06/16, and last bm was on 10/05. She was taking narcotic pain meds without a bowel regimen. She is c/o abdominal pain, distension, bloating, minimally passing gas, and nausea as well, which has worsened as the past week has went on. She denies any cp, sob, lightheadedness or dizziness. Additional Comments: 6 point ROS was obtained and is otherwise negative. (Destiny White PA-C) Objective Vital Signs Date Time Temp Pulse Resp B/P Pulse Ox O2 Delivery O2 Flow Rate FiO2 10/13/16 12:33 36.8 61 19 134/69 97 Room Air 10/13/16 12:00 97 Room Air 10/13/16 08:17 170/62 10/13/16 08:00 97 Room Air 10/13/16 07:47 36.8 69 19 97 Room Air 10/13/16 04:00 97 Room Air 10/13/16 04:00 36.7 61 156/70 97 Room Air 10/13/16 00:00 97 Room Air 10/12/16 23:21 36.9 65 22 197/78 97 Room Air 10/12/16 20:59 36.9 65 194/78 96 Room Air 10/12/16 19:11 59 20 169/59 96 10/12/16 16:33 77 20 159/67 95 Room Air 10/12/16 14:22 66 221/70 69 182/86 80 150/98 10/12/16 14:18 150/98 10/12/16 14:17 182/86 10/12/16 14:15 221/70 (Destiny White PA-C) Physical Exam General Appearance: WD/WN, no apparent distress, + obese Eyes: PERRL, EOMI ENT: hearing grossly normal, pharynx normal Neck: supple, no JVD Respiratory/Chest: chest non-tender, lungs clear, normal breath sounds, no respiratory distress, no accessory muscle use Cardiovascular: regular rate, rhythm, no murmur Abdomen: normal bowel sounds, + distended, + guarding Extremities: non-tender, no pedal edema, no calf tenderness, + pertinent finding (R shoulder incision with yomi intact, no signs of erythema or edema , shoulder in sling. ) Neurologic/Psychiatric: no motor/sensory deficits, alert, oriented x 3 Skin: normal color, warm/dry (Destiny White, MARIAH) Laboratory Results Last 24 Hours Test 10/12/16 14:09 10/12/16 15:30 10/13/16 05:42 White Blood Count 9.69 K/uL Red Blood Count 3.20 M/uL Hemoglobin 9.5 g/dL 8.5 g/dL Hematocrit 29.7 % 26.8 % Mean Corpuscular Volume 92.8 fL Mean Corpuscular Hemoglobin 29.7 pg Mean Corpuscular Hemoglobin Concent 32.0 g/dl Platelet Count 339 K/uL Mean Platelet Volume 9.6 fL Neutrophils (%) (Auto) 64.6 % Lymphocytes (%) (Auto) 25.6 % Monocytes (%) (Auto) 8.5 % Eosinophils (%) (Auto) 0.6 % Basophils (%) (Auto) 0.4 % Neutrophils # (Auto) 6.26 K/uL Lymphocytes # (Auto) 2.48 K/uL Monocytes # (Auto) 0.82 K/uL Eosinophils # (Auto) 0.06 K/uL Basophils # (Auto) 0.04 K/uL RDW Standard Deviation 42.6 fL RDW Coefficient of Variation 12.5 % Immature Granulocyte % (Auto) 0.3 % Immature Granulocyte # (Auto) 0.03 K/uL Sodium Level 141 mmol/L Potassium Level mmol/L 4.1 mmol/L Chloride Level 107 mmol/L Carbon Dioxide Level 27 mmol/L Anion Gap 7.0 mmol/L Blood Urea Nitrogen 13 mg/dl Creatinine 0.85 mg/dl Est Creatinine Clear Calc Drug Dose 48.7 ml/min Estimated GFR () 72.4 Estimated GFR (Non- 62.5 BUN/Creatinine Ratio 15.3 Random Glucose 127 mg/dl Calcium Level 8.9 mg/dl Magnesium Level mg/dl 2.1 mg/dl Total Bilirubin 0.9 mg/dl Aspartate Amino Transf (AST/SGOT) U/L 19 U/L Alanine Aminotransferase (ALT/SGPT) 19 U/L Alkaline Phosphatase 32 U/L Total Protein 6.4 gm/dl Albumin 3.0 gm/dl Globulin 3.4 gm/dl Albumin/Globulin Ratio 0.9 Thyroid Stimulating Hormone (TSH) 1.910 uIu/ml (Destiny White PA-C) Assessment and Plan 86 y/o F who was admitted for observation on 10/12 for Nausea secondary to severe constipation. Constipation and nausea - Lightheadedness resolved with fluids - Possible related to decreased PO intake post-op and decreased Hb post-op - occurred in the setting of pain meds, decreased activity, decreased PO - Ordered mirilax, dulcolax po, dulcolax suppository now, and fleets enema if suppository doesn't work by noon. Hypertensive urgency: hx hypertension - Triamterene/HCTZ 37.5/25 mg restarted today - elevated BP elevated likely secondary due to anxiety and the location of the BP cuff. Pt has pain in the left arm d/t shoulder surgery 1 week ago. Limb restriction on the right arm d/t mastectomy 1 year ago, bilateral lower extremities are very touchy and the pt has pain when cuff is applied there. - Cont coreg 0.1 mg BID, bystolic 20 mg QAM Failure to thrive post-op: - PT/OT - Possible [facility] today Afib: continue xarelto DVT ppx: xarelto, teds, scds CODE STATUS: Full code Disposition: To [facility] pending bed placement, hopefully today. (Destiny White PA-C) [place] Physician Supervision Note: I interviewed and examined the patient. Discussed with Destiny White PAC and agree with findings and plan as documented in the note. Any exceptions or clarifications are listed here: None pt with recent shoulder surgery, has pain, constipation and decreased appetite, was not able to perform activity of daily living at home vitals stable, some lower hgb levels, painful shoulder car is regular, lungs clear will support, use cathartics, follow hgb rehab referral Documented By: Justin Simon (Justin Simon M.D.)
--- NOTE | 2016-10-13 14:49 | Discharge Instructions ---
Discharge Instructions Date of Service October 14, 2016. Admission Reason for Admission: Orthostatic Hypotension Discharge Discharge Diagnosis / Problem: Intractable nausea secondary to opiate induced constipation Discharge Goals Goal(s): Decrease discomfort, Improve function, Increase independence, Improve disease control Activity Recommendations Activity Limitations: resume your previous activity Lifting Limitations: gradually increase as tolerated Exercise/Sports Limitations: gradually increase as tolerated Shower/Bathe: no limitations Driving or Machine Use: Do not drive until cleared by your PCP . Instructions / Follow-Up Instructions / Follow-Up You were admitted to [facility] with intractable nausea and diagnosed with nausea secondary to opiate induced constipation. During your stay here you were treated with a bowel regimen to help with movement of your bowels. Continue taking dulcolax and mirilax orally to help with bowels as directed. A dulcolax suppository was prescribed for an as needed basis. You do not need to take these if you are no longer using opiates for shoulder pain and your bowels are regular. Continue taking all your other medications as prescribed. Follow up with your PCP and orthopedics as scheduled. Current Hospital Diet Patient's current hospital diet: AHA Diet (Heart Healthy) Discharge Diet Recommended Diet: AHA Diet (Heart Healthy) Procedures Procedures Performed: None Pending Studies Studies pending at discharge: no Medical Emergencies . Who to Call and When: Medical Emergencies: If at any time you feel your situation is an emergency, please call 911 immediately. . Non-Emergent Contact Non-Emergency issues call your: Primary Care Provider Call Non-Emergent contact if: you have a fever, temperature is above 100.5, your pain is not controlled, your pain is worsening, your pain is unusual for you, wound has increased pain, you have any medication questions . Past History Medical & Surgical History: (1) Constipation due to opioid therapy (2) Atrial fibrillation . "Provider Documentation" section prepared by Shantell White. . VTE Core Measure Inpt VTE Proph given/why not?: Other Anticoagulation, T.E.D. Stockings, SCD's [place] Drug Monitoring Program Search Results: no issues identified
--- NOTE | 2016-10-13 14:56 | Discharge Summary ---
Discharge Summary Date of Service October 14, 2016. Discharge Summary Admission Date: October 12, 2016 at 18:40 Discharge Date: Oct 14, 2016 Discharge Disposition: Rehab Principal Diagnosis: Nausea secondary to opiate induced constipation, s/p L shoulder surgery Problems/Secondary Diagnoses: HTN, obesity, Hx breast carcinoma s/p R mastectomy, atrial fibrillation on xarelto Immunizations: Have You Had Influenza Vaccine: N/A History of Tetanus Vaccine?: Yes History of Pneumococcal: Yes History of Hepatitis B Vaccine: No Procedures: None Consultations: None Medication Reconciliation New Medications: Polyethylene (Miralax) 17 Gm Pow 17 GM PO DAILY PRN for Constipation for 30 Days, #30 DOSE Senna (Senna Lax) 8.6 Mg Tab 8.6 MG PO QAM PRN for Constipation for 30 Days, #30 TAB Continued Medications: Acetaminophen (Tylenol) 500 Mg Tab 1000 MG PO PRN, TAB Atorvastatin (Lipitor) 10 Mg Tab 10 MG PO QPM, TAB Candesartan Cilexetil (Atacand) 32 Mg Tab 32 MG PO QAM, TAB Cholecalciferol (Vitamin D) 2,000 Unit Tab 2000 INTER.UNIT PO QAM Clonidine Hcl (Catapres) 0.1 Mg Tab 0.1 MG PO BID, TAB 1500 AND HS Clotrimazole W/ Betamethasone (Lotrisone) 1 Cre Cre 1 APPLN TOP BID, GM Famotidine (Pepcid) 20 Mg Tab 20 MG PO QAM, 0 Refills Felodipine (Felodipine ER) 5 Mg Tabcr 5 MG PO BID Fluticasone Propionate (Fluticasone Propionate) 120 Sprays/6000 Mcg Inha 1 SPRAYS VALERIE QAM Magnesium Chloride (Slow-Mag Tab) 64 Mg Tabcr 64 MG PO DAILY, TAB Nebivolol Hcl (Bystolic) 20 Mg Tab 20 MG PO QAM, TAB Rivaroxaban (Xarelto) 20 Mg Tab 20 MG PO QPM, TAB Tamoxifen (Nolvadex) 20 Mg Tab 20 MG PO DAILY, TAB Triamterene/Hctz (Dyazide 37.5MG/25MG) Cap 1 TAB PO QAM, CAP Discontinued Medications: Oxycodone Ir (Roxicodone Ir) 5 Mg Tab 1 TAB PO Q4H PRN for Severe Pain, TAB Discharge Exam The patient was seen and examined this morning. Pt reports she feels well today. She had a bowel movement yesterday with dulcolax suppository and then had another small bm this morning. A friend is present at bedside visiting. She denies any abdominal pain or nausea/vomiting. She denies any other acute complaints. She is hopeful for discharge later today. Her family plans to transport her. ROS: 6 point ROS was reviewed and otherwise negative. Physical Exam: General Appearance: WD/WN, no apparent distress, + obese Eyes: PERRL, EOMI ENT: hearing grossly normal, pharynx normal Neck: supple, no JVD Respiratory/Chest: chest non-tender, lungs clear, normal breath sounds, no respiratory distress, no accessory muscle use Cardiovascular: regular rate, rhythm, no murmur Abdomen: normal bowel sounds, nondistended and nontender, no guarding Extremities: non-tender, no pedal edema, no calf tenderness, + pertinent finding (R shoulder incision with yomi intact, no signs of erythema or edema , shoulder in sling. ) Neurologic/Psychiatric: no motor/sensory deficits, alert, oriented x 3 Skin: normal color, warm/dry Hospital Course H&P per Cherry Zapien DO. History of Present Illness Source: patient 86 y/o F c/o nausea and lightheadedness. Pt had a L shoulder surgery at [facility] last week. She was sent home and has not done well since that time. She was having n/v and was seen in the ED a few days ago. It was decided that this was related to pain meds and those were stopped at that time. Since then, she has had no further emesis. Her nausea is better but still present. She has been lightheaded regularly and feels very off balance when she walks. She has not had a bowel movement since just before her surgery, about 1 week. She does not have abd pain, but feels constipated. She has decreased PO intake due to poor appetite and "nothing tastes good". Pt denies fever, SOB, chest pain. Pt has not been taking her diuretic due to having so many issues with ambulation and was trying to minimize her trips to the bathroom to help with this. Her lives with her, but he is 85 y/o also and she worries about falling and injuring him in the process as well. She does note an increase in her LE swelling with not taking the diuretic. She has increased LE pain due to [facility] needing to use her feet for IV access and blood draws. ROS as noted above, otherwise neg. ED attempted to place pt at [facility], however they do not have any beds available. Physical Exam Vital Signs Date Time Temp Pulse Resp B/P Pulse Ox O2 Delivery O2 Flow Rate FiO2 10/12/16 16:33 77 20 159/67 95 Room Air 10/12/16 14:22 66 221/70 69 182/86 80 150/98 10/12/16 14:18 150/98 10/12/16 14:17 182/86 10/12/16 14:15 221/70 10/12/16 13:39 67 18 99 10/12/16 13:18 211/101 10/12/16 13:09 78 20 10/12/16 12:55 73 10/12/16 12:52 36.7 73 23 100 Room Air General Appearance: WD/WN, no apparent distress Head: normocephalic, atraumatic Respiratory/Chest: normal breath sounds, no respiratory distress Cardiovascular: regular rate, rhythm, normal peripheral pulses Abdomen/GI: non tender, soft, + distended Extremities/Musculoskelatal: + pedal edema (1+ pitting), + pertinent finding (b /l LE and feet are TTP) Neurologic/Psych: alert, normal mood/affect, oriented x 3 Skin: normal color, warm/dry Hospital Course: 86 y/o F who was admitted for observation on 10/12 for Nausea secondary to severe constipation. Constipation and nausea - Resolved - Lightheadedness resolved with fluids - Possible related to decreased PO intake post-op and decreased Hb post-op - occurred in the setting of pain meds, decreased activity, decreased PO - Ordered mirilax, dulcolax po, dulcolax suppository now and had a bowel movement yesterday and again today - should continue oral bowel regimen Hypertensive urgency: hx hypertension - Cont triamterene/HCTZ 37.5/25 mg, coreg 0.1 mg BID, bystolic 20 mg QAM - elevated BP again today, nursing reported she had a headache earlier this morning but not present when I'm in the room. BP has gone down overall but remains slightly elevated, likely will improved as she is back on her normal antihypertensive regimen and was not taking the diuretic prior to admission. - BP likely falsely elevated a little due to location of the BP cuff. Pt has pain in the left arm d/t shoulder surgery 1 week ago. Limb restriction on the right arm d/t mastectomy 1 year ago, bilateral lower extremities are very touchy and the pt has pain when cuff is applied there. Failure to thrive post-op: - PT/OT to continue at time of discharge Afib: continue xarelto DVT ppx: xarelto, teds, scds CODE STATUS: Full code Disposition: To [facility] today. Total Time Spent: Greater than 30 minutes This includes examination of the patient, discharge planning, medication reconciliation, and communication with other providers. Discharge Instructions Please refer to the electronic Patient Visit Report (Discharge Instructions) for additional information. Follow-Up Follow up with your Primary Care Provider at [facility] within 24-48 hrs of arrival there. Additional Copies To Isiah Mojica M.D.
[2016-10-13 16:26] LABS: HEMATOCRIT 28.8 % (37-47)
[2016-10-13] MEDS: ATORVASTATIN 10 MG TAB PO SCH (20:45)
[2016-10-13] MEDS: RIVAROXABAN 20 MG TAB PO SCH (20:46)
[2016-10-14] VITALS (8 sets, daily range): BP systolic 147–199; BP diastolic 71–78; PULSE 60–69; TEMP 36.6–36.7; O2SAT 93–98
[2016-10-14] MEDS: ACETAMINOPHEN 325 MG TAB PO PRN ×4 (00:39→23:42)
[2016-10-14 05:39] LABS: HEMATOCRIT 29.1 % (37-47); MEAN CELL VOLUME 95.7 fL (80-100); MEAN CORPUSCULAR HEMOGLOBIN 30.6 pg (25-34); MEAN PLATELET VOLUME 9.6 fL (7.4-10.4); PLATELET COUNT 352 K/uL (130-400); RED BLOOD COUNT 3.04 M/uL (4.2-5.4)
[2016-10-14] MEDS: CLONIDINE HCL 0.1 MG TAB PO SCH ×2 (08:03→21:23)
[2016-10-14] MEDS: FELODIPINE 5 MG TABCR PO SCH ×2 (08:03→20:39)
[2016-10-14] MEDS: TRIAMTERENE/HCTZ 37.5/25MG CAP PO SCH (08:03)
[2016-10-14] MEDS: NEBIVOLOL HCL 5 MG TAB PO SCH (08:03)
[2016-10-14] MEDS: FLUTICASONE PROPIONATE NA SPR 16 GM BTL NAE SCH (08:47)
[2016-10-14] MEDS: MAGNESIUM HYDROXIDE SUSP 30 ML UDC PO SCH (08:47)
[2016-10-14] MEDS: POLYETHYLENE (MIRALAX) 17 GM PACK PO SCH (08:47)
[2016-10-14] MEDS: SENNA 8.6 MG TAB PO SCH (08:48)
[2016-10-14] MEDS: TAMOXIFEN CITRATE 10 MG TAB PO SCH (08:49)
[2016-10-14] MEDS: FAMOTIDINE 20 MG TAB PO SCH (08:49)
[2016-10-14] MEDS: CANDESARTAN 8 MG TAB PO SCH (08:49)
[2016-10-14] MEDS: MAGNESIUM CHLORIDE 64MG DELAYED REL TAB PO SCH (08:50)
[2016-10-14] MEDS: CHOLECALCIFEROL 1000 INTER.UNIT TAB PO SCH (08:50)
[2016-10-14] MEDS: CLOTRIMAZOLE/BETAMETHASONE CR 15 GM TUBE EXT SCH ×2 (10:55→20:37)
[2016-10-14] MEDS ORDERED: MRLP17 PO (11:16)
[2016-10-14] MEDS ORDERED: SNK PO (11:16)
--- NOTE | 2016-10-14 13:41 | Hospitalist Progress Note ---
Hospitalist Progress Note Date of Service Oct 14, 2016. (Destiny White PA-C) Subjective Pt evaluation today including: conversation w/ patient, physical exam, chart review, lab review, review of studies The patient was seen and examined this morning. Pt reports she feels well today. She had a bowel movement yesterday with dulcolax suppository and then had another small bm this morning. A friend is present at bedside visiting. She denies any abdominal pain or nausea/vomiting. She denies any other acute complaints. She is hopeful for discharge later today. Her family plans to transport her. ROS: 6 point ROS was reviewed and otherwise negative. (Destiny White PA-C) Objective Vital Signs Date Time Temp Pulse Resp B/P (MAP) Pulse Ox O2 Delivery O2 Flow Rate FiO2 10/14/16 11:57 36.6 62 20 147/72 (97) 97 Room Air 10/14/16 08:27 98 Room Air 10/14/16 08:18 36.6 62 16 199/78 (118) 98 Room Air 10/14/16 08:00 Room Air 10/14/16 08:00 63 168/71 (103) 10/14/16 00:45 Room Air 10/14/16 00:35 93 Room Air 10/13/16 23:46 36.5 62 16 168/69 (102) 97 Room Air 10/13/16 20:56 171/63 (99) 10/13/16 17:32 36.7 59 19 96 10/13/16 17:30 36.5 65 17 145/68 (93) 96 Room Air 10/13/16 17:30 96 Room Air 10/13/16 16:00 96 Room Air 10/13/16 15:11 36.7 59 19 161/74 (103) 96 Room Air (Destiny White PA-C) Physical Exam Notes: General Appearance: WD/WN, no apparent distress, + obese Eyes: PERRL, EOMI ENT: hearing grossly normal, pharynx normal Neck: supple, no JVD Respiratory/Chest: chest non-tender, lungs clear, normal breath sounds, no respiratory distress, no accessory muscle use Cardiovascular: regular rate, rhythm, no murmur Abdomen: normal bowel sounds, nondistended and nontender, no guarding Extremities: non-tender, no pedal edema, no calf tenderness, + pertinent finding (R shoulder incision with yomi intact, no signs of erythema or edema , shoulder in sling. ) Neurologic/Psychiatric: no motor/sensory deficits, alert, oriented x 3 Skin: normal color, warm/dry (Destiny White, MARIAH) Laboratory Results Last 24 Hours Test 10/13/16 16:05 10/14/16 05:06 Hemoglobin 9.4 g/dL 9.3 g/dL Hematocrit 28.8 % 29.1 % White Blood Count 10.50 K/uL Red Blood Count 3.04 M/uL Mean Corpuscular Volume 95.7 fL Mean Corpuscular Hemoglobin 30.6 pg Mean Corpuscular Hemoglobin Concent 32.0 g/dl RDW Standard Deviation 45.5 fL RDW Coefficient of Variation 13.1 % Platelet Count 352 K/uL Mean Platelet Volume 9.6 fL (Destiny White PA-C) Assessment and Plan 86 y/o F who was admitted for observation on 10/12 for Nausea secondary to severe constipation. Constipation and nausea - Resolved - Lightheadedness resolved with fluids - Possible related to decreased PO intake post-op and decreased Hb post-op - occurred in the setting of pain meds, decreased activity, decreased PO - Ordered mirilax, dulcolax po, dulcolax suppository now and had a bowel movement yesterday and again today - should continue oral bowel regimen Hypertensive urgency: hx hypertension - Cont triamterene/HCTZ 37.5/25 mg, coreg 0.1 mg BID, bystolic 20 mg QAM - elevated BP again today, nursing reported she had a headache earlier this morning but not present when I'm in the room. BP has gone down overall but remains slightly elevated, likely will improved as she is back on her normal antihypertensive regimen and was not taking the diuretic prior to admission. - BP likely falsely elevated a little due to location of the BP cuff. Pt has pain in the left arm d/t shoulder surgery 1 week ago. Limb restriction on the right arm d/t mastectomy 1 year ago, bilateral lower extremities are very touchy and the pt has pain when cuff is applied there. Failure to thrive post-op: - PT/OT to continue at time of discharge Afib: continue xarelto DVT ppx: xarelto, teds, scds CODE STATUS: Full code Disposition: To [facility] today. (Destiny White, MARIAH) [place] Physician Supervision Note: I interviewed and examined the patient. Discussed with Destiny White PAC and agree with findings and plan as documented in the note. 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 In my opinion I did not receive a clear reason why this was decided other than she could recieve rehab in a subacute setting which is true. However, given availability of facilities in our area, and the fact that having her return home in the most timely manner to help continue to care for her , I still feel that a short stay at acute rehab would be in the best interest of the patient. The peer to peer reviewer could not inform me of the specific criteria required to have this patient meet for acute rehab, nor the ones failed, to define subacute. I requested to speak to the next level of appeal. I encouraged the patient to call her insurance billing specialist Documented By: Justin Simon (Justin Simon M.D.)
[2016-10-14] MEDS: RIVAROXABAN 20 MG TAB PO SCH (20:38)
[2016-10-14] MEDS: ATORVASTATIN 10 MG TAB PO SCH (20:38)
[2016-10-15] MEDS: ACETAMINOPHEN 325 MG TAB PO PRN ×2 (06:03→12:46)
[2016-10-15 07:25] VITALS: BP 164/79; PULSE 69; TEMP 36.7; O2SAT 97
[2016-10-15 07:39] LABS: CREATININE 0.92 mg/dl (0.60-1.20)
[2016-10-15] MEDS: FLUTICASONE PROPIONATE NA SPR 16 GM BTL NAE SCH (08:34)
[2016-10-15] MEDS: CANDESARTAN 8 MG TAB PO SCH (08:34)
[2016-10-15] MEDS: NEBIVOLOL HCL 5 MG TAB PO SCH (08:35)
[2016-10-15] MEDS: CLONIDINE HCL 0.1 MG TAB PO SCH (08:36)
[2016-10-15] MEDS: TRIAMTERENE/HCTZ 37.5/25MG CAP PO SCH (08:36)
[2016-10-15] MEDS: TAMOXIFEN CITRATE 10 MG TAB PO SCH (08:40)
[2016-10-15] MEDS: FELODIPINE 5 MG TABCR PO SCH (08:40)
[2016-10-15] MEDS: MAGNESIUM CHLORIDE 64MG DELAYED REL TAB PO SCH (08:41)
[2016-10-15] MEDS: CHOLECALCIFEROL 1000 INTER.UNIT TAB PO SCH (08:41)
[2016-10-15] MEDS: SENNA 8.6 MG TAB PO SCH (08:42)
[2016-10-15] MEDS: CLOTRIMAZOLE/BETAMETHASONE CR 15 GM TUBE EXT SCH (08:44)
[2016-10-15] MEDS: MAGNESIUM HYDROXIDE SUSP 30 ML UDC PO SCH (08:44)
[2016-10-15] MEDS: POLYETHYLENE (MIRALAX) 17 GM PACK PO SCH (08:44)
[2016-10-15] MEDS: FAMOTIDINE 20 MG TAB PO SCH (09:17)
--- NOTE | 2016-10-15 11:02 | Hospitalist Progress Note ---
Hospitalist Progress Note Date of Service Oct 15, 2016. (Destiny White PA-C) Subjective Pt evaluation today including: conversation w/ patient, physical exam, chart review, lab review, review of studies Pain: Mild L shoulder pain 4-5 PO Intake: Good Voiding: no voiding problems The patient was seen and examined this morning. Pt reports doing well today, her pain is improved. She is supposed to have yomi taken out today per [facility] instructions from her surgery. She is eating and drinking without difficulty. Her bowels continue to move and she is passing gas. Pt is doing well with ambulation to the bathroom and has gone out in he hallways. She tells me her mood is improved today, and that she spoke with a woman about her insurance coverage of a rehab stay which sounded promising. She is hopeful to have acceptance to [facility] today. She denies any other acute complaints. Additional Comments: 10 point ROS was reviewed and otherwise negative. (Destiny White PA-C) Objective Vital Signs Date Time Temp Pulse Resp B/P (MAP) Pulse Ox O2 Delivery O2 Flow Rate FiO2 10/15/16 07:30 Room Air 10/15/16 07:25 36.7 69 18 164/79 (107) 97 Room Air 10/14/16 23:35 Room Air 10/14/16 23:07 36.6 60 18 171/73 (105) 97 Room Air 10/14/16 15:50 36.7 69 20 177/73 (107) 97 Room Air 10/14/16 15:00 Room Air 10/14/16 14:53 62 97 10/14/16 11:57 36.6 62 20 147/72 (97) 97 Room Air (Destiny White PA-C) Physical Exam Notes: General Appearance: WD/WN, no apparent distress, + obese Eyes: PERRL, EOMI ENT: hearing grossly normal, pharynx normal Neck: supple, no JVD Respiratory/Chest: chest non-tender, lungs clear, normal breath sounds, no respiratory distress, no accessory muscle use Cardiovascular: regular rate, rhythm, no murmur Abdomen: normal bowel sounds, soft, nondistended, nontender with palpation. Extremities: non-tender, improving pedal edema, no calf tenderness, + pertinent finding (R shoulder incision with yomi intact, no signs of erythema or edema, shoulder in sling. ) Neurologic/Psychiatric: no motor/sensory deficits, alert, oriented x 3 Skin: normal color, warm/dry (Destiny White, MARIAH) Laboratory Results Last 24 Hours Test 10/15/16 06:25 Creatinine 0.92 mg/dl Est Creatinine Clear Calc Drug Dose 46.1 ml/min Estimated GFR () 65.8 Estimated GFR (Non- 56.8 (Destiny White PA-C) Assessment and Plan 86 y/o F who was admitted for observation on 10/12 for Nausea secondary to severe constipation. Constipation and nausea - Resolved - Lightheadedness resolved with fluids - Possible related to decreased PO intake post-op and decreased Hb post-op - occurred in the setting of pain meds, decreased activity, decreased PO - Continue bowel regimen with mirilax, dulcolax po, dulcolax suppository prn Hypertensive urgency: hx hypertension - Cont triamterene/HCTZ 37.5/25 mg, coreg 0.1 mg BID, bystolic 20 mg QAM - elevated BP again today which has gone down overall but remains slightly elevated - BP likely falsely elevated a little due to location of the BP cuff. Pt has pain in the left arm d/t shoulder surgery. Limb restriction on the right arm d/ t mastectomy 1 year ago, bilateral lower extremities are very touchy and the pt has pain when cuff is applied there. Failure to thrive post-op: - PT/OT to continue at time of discharge Afib: continue xarelto DVT ppx: xarelto, teds, scds CODE STATUS: Full code Disposition: To [facility] pending approval from insurance, CM assisting. (Destiny White PA-C) [place] Physician Supervision Note: I interviewed and examined the patient. Discussed with Destiny White PAC and agree with findings and plan as documented in the note. 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 In my opinion I did not receive a clear reason why this was decided other than she could recieve rehab in a subacute setting which is true. However, given availability of facilities in our area, and the fact that having her return home in the most timely manner to help continue to care for her , I still feel that a short stay at acute rehab would be in the best interest of the patient. The peer to peer reviewer could not inform me of the specific criteria required to have this patient meet for acute rehab, nor the ones failed, to define subacute. I requested to speak to the next level of appeal. I encouraged the patient to call her insurance risk analyst Documented By: Justin Simon (uJstin Simon M.D.)
--- NOTE | 2016-10-15 15:33 | Discharge Instructions ---
Discharge Instructions Date of Service Oct 15, 2016. Admission Reason for Admission: Orthostatic Hypotension Discharge Discharge Diagnosis / Problem: hypotension, shoulder pain, constipation Discharge Goals Goal(s): Diagnostic testing, Therapeutic intervention Activity Recommendations Activity Limitations: resume your previous activity . Current Hospital Diet Patient's current hospital diet: AHA Diet (Heart Healthy) Discharge Diet Recommended Diet: Regular Diet Procedures Procedures Performed: None Pending Studies Studies pending at discharge: no Medical Emergencies . Who to Call and When: Medical Emergencies: If at any time you feel your situation is an emergency, please call 911 immediately. . Non-Emergent Contact Non-Emergency issues call your: Primary Care Provider Call Non-Emergent contact if: temperature is above 101, your pain is unusual for you . . "Provider Documentation" section prepared by Justin Simon. . VTE Core Measure Inpt VTE Proph given/why not?: Other Anticoagulation, T.E.D. Stockings, SCD's
[2016-10-15] MEDS ORDERED: TRAM-10 PO (15:34)
[2016-10-15 15:45] VITALS: BP 164/79; PULSE 69; TEMP 36.7; O2SAT 97
--- NOTE | 2016-10-15 16:03 | Discharge Summary ---
Discharge Summary Date of Service Oct 15, 2016. Discharge Summary Admission Date: October 12, 2016 at 18:40 Discharge Date: Oct 15, 2016 Discharge Disposition: Home with services Principal Diagnosis: shoulder pain, hypotension, constipation Immunizations: Have You Had Influenza Vaccine: N/A History of Tetanus Vaccine?: Yes History of Pneumococcal: Yes History of Hepatitis B Vaccine: No Medication Reconciliation New Medications: Tramadol (Ultram) 50 Mg Tab 50 MG PO Q8H PRN for Pain, #20 TAB Polyethylene (Miralax) 17 Gm Pow 17 GM PO DAILY PRN for Constipation for 30 Days, #30 DOSE Senna (Senna Lax) 8.6 Mg Tab 8.6 MG PO QAM PRN for Constipation for 30 Days, #30 TAB Continued Medications: Acetaminophen (Tylenol) 500 Mg Tab 1000 MG PO PRN, TAB Atorvastatin (Lipitor) 10 Mg Tab 10 MG PO QPM, TAB Candesartan Cilexetil (Atacand) 32 Mg Tab 32 MG PO QAM, TAB Cholecalciferol (Vitamin D) 2,000 Unit Tab 2000 INTER.UNIT PO QAM Clonidine Hcl (Catapres) 0.1 Mg Tab 0.1 MG PO BID, TAB 1500 AND HS Clotrimazole W/ Betamethasone (Lotrisone) 1 Cre Cre 1 APPLN TOP BID, GM Famotidine (Pepcid) 20 Mg Tab 20 MG PO QAM, 0 Refills Felodipine (Felodipine ER) 5 Mg Tabcr 5 MG PO BID Fluticasone Propionate (Fluticasone Propionate) 120 Sprays/6000 Mcg Inha 1 SPRAYS VALERIE QAM Magnesium Chloride (Slow-Mag Tab) 64 Mg Tabcr 64 MG PO DAILY, TAB Nebivolol Hcl (Bystolic) 20 Mg Tab 20 MG PO QAM, TAB Rivaroxaban (Xarelto) 20 Mg Tab 20 MG PO QPM, TAB Tamoxifen (Nolvadex) 20 Mg Tab 20 MG PO DAILY, TAB Triamterene/Hctz (Dyazide 37.5MG/25MG) Cap 1 TAB PO QAM, CAP Discontinued Medications: Oxycodone Ir (Roxicodone Ir) 5 Mg Tab 1 TAB PO Q4H PRN for Severe Pain, TAB Hospital Course pt with recent shoulder surgery, was not able to perform activity of daily living at home, was evaluated by PT/OT and deemed unsafe for home, 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 In my opinion I did not receive a clear reason why this was decided other than she could recieve rehab in a subacute setting which is true. However, given availability of facilities in our area, and the fact that having her return home in the most timely manner to help continue to care for her , I still feel that a short stay at acute rehab would be in the best interest of the patient. The peer to peer reviewer could not inform me of the specific criteria required to have this patient meet for acute rehab, nor the ones failed, to define subacute. I requested to speak to the next level of appeal. I encouraged the patient to call her insurance and benefits clerk This pt was tired of waiting around for approval and requested to be discharged , will have home with home health and modest pain control, will arrange follow up with local pcp and hopefully mayda almanzar Documented By: Justin Simon Total Time Spent: Greater than 30 minutes This includes examination of the patient, discharge planning, medication reconciliation, and communication with other providers. Discharge Instructions Please refer to the electronic Patient Visit Report (Discharge Instructions) for additional information.
== END 2016-10-15 16:06 | disposition home health service (06) | DRG 392 ==
LOC: ENRESERVDT → CANRESERV → ENRESERVTM → EDBD 12:39 → C.EDB 12:40 → C.2E 18:40 → EDBEDREQSVC 19:01 → EDBEDREQ 19:08 → EDBEDREQSVC 10-13 15:58 → C.MSN 10-13 17:43
PROVIDERS: ADMIT Family Medicine; ATTEND Internal Medicine
DX: K59.03 Drug induced constipation (principal); Z68.41 Body mass index [BMI] 40.0-44.9, adult; T40.605A Adverse effect of unspecified narcotics, initial encounter; I95.1 Orthostatic hypotension; Z96.612 Presence of left artificial shoulder joint; Z98.890 Other specified postprocedural states; I48.91 Unspecified atrial fibrillation; Z96.659 Presence of unspecified artificial knee joint; D18.09 Hemangioma of other sites; Z85.3 Personal history of malignant neoplasm of breast; E78.5 Hyperlipidemia, unspecified; R62.7 Adult failure to thrive; E66.9 Obesity, unspecified; Y92.009 Unspecified place in unspecified non-institutional (private) residence as the place of occurrence of the external cause

== ENCOUNTER → 2017-04-05 | Outpatient (CLI) | payer BC ==
[~2017-04-05] MED LIST changes: +MRLP17 PO; -OXYC1TAB3 PO; +SNK PO; +TRAM-10 PO
[2017-04-05 14:15] LABS: BASO % 0.9 %; BASO ABS # 0.08 K/uL (0-0.2); COMPLETE YES; EOS % 1.5 %; HEMATOCRIT 35.9 % (37-47); IG% 0.2 %; LYMPH % 25.3 %; LYMPH ABS # 2.34 K/uL (1.2-3.4); MEAN CELL VOLUME 94.2 fL (80-100); MEAN CORPUSCULAR HEMOGLOBIN 29.9 pg (25-34); MEAN CORPUSCULAR HGB CONC 31.8 g/dl (32-36); MEAN PLATELET VOLUME 10.4 fL (7.4-10.4); MONO % 8.8 %; NEUT % 63.3 %; PLATELET COUNT 262 K/uL (130-400); RED BLOOD COUNT 3.81 M/uL (4.2-5.4); WHITE BLOOD COUNT 9.25 K/uL (4.8-10.8)
[2017-04-05 14:31] LABS: BLOOD UREA NITROGEN 15 mg/dl (7-18); BUN/CREATININE RATIO 20.4 (10-20); CALCIUM 9.1 mg/dl (8.5-10.1); CARBON DIOXIDE 29 mmol/L (21-32); CHLORIDE 104 mmol/L (98-107); CREATININE 0.74 mg/dl (0.60-1.20); GLUCOSE 132 mg/dl (70-99); POTASSIUM 3.7 mmol/L (3.5-5.1); SODIUM 140 mmol/L (136-145)
[2017-04-06 07:34] LABS: ESTIMATED AVERAGE GLUCOSE 151 mg/dl; HA1C FLAG Normal (Normal)
== END | disposition home or self-care (01) ==
LOC: C.LABBC 09:22
PROVIDERS: ATTEND Internal Medicine Geriatric Medicine
DX: I10 Essential (primary) hypertension (principal); E11.9 Type 2 diabetes mellitus without complications; E78.5 Hyperlipidemia, unspecified; I49.5 Sick sinus syndrome; I48.0 Paroxysmal atrial fibrillation

== ENCOUNTER 2017-04-24 11:13 | Emergency (ER) | payer BC ==
[~2017-04-24] VITALS: Ht 152.4 cm; Wt 92.4 kg
[~2017-04-24 11:13] MED LIST changes: -TRAM-10 PO
[2017-04-24 11:16] VITALS: Ht 152.4 cm; Wt 92.4 kg
[2017-04-24] MEDS ORDERED: CEPH-571 PO (11:35)
[2017-04-24 11:46] VITALS: BP 142/66; PULSE 68; TEMP 36.9; O2SAT 96
[2017-04-24] MEDS ORDERED: ARM1 PO (12:12)
--- NOTE | 2017-04-24 18:04 | EMERGENCY ROOM VISIT NOTE ---
History First contact with patient: 11:27 Chief Complaint: INFECTION Stated Complaint: POSS. BREAST INFECTION-RECENT SURGERY Nursing Triage Summary: redness under right arm and right breast. no discharge noted. History of Present Illness The patient is a 86 year old white female who presents to the Emergency Room with complaints of possible infection of her left breast. She previously had a lumpectomy done at [facility]. She removed her Steri-Strips in the show and noticed some irritation. She states there is some mild redness around her 1 lumpectomy site. She states there was a small drop of drainage. She became concerned about possible infection. She called the on- call surgeon today and was referred to the ED for evaluation. No fevers or chills. No sweats. No significant increase in pain. No nausea or vomiting. She sees her surgeon on Tuesday. No other complaints. She had a previous right mastectomy. Review of Systems REVIEW OF SYSTEM: HEENT: No dizziness, visual problems, hearing loss, or tinnitus. There is no difficulty swallowing and no oral lesions are present. PULMONARY: No cough, shortness of breath, sputum production or hemoptysis. CARDIOVASCULAR: No chest pain, shortness of breath or peripheral edema. GASTROINTESTINAL: No diarrhea, constipation, nausea, vomiting, or abdominal pain. GENITOURINARY: No dysuria, frequency, urgency or nocturia. NEUROLOGIC: No weakness, muscle tenderness, epilepsy or history of neurological problems. MUSCULOSKELETAL: No history of joint tenderness/swelling. Positive history of arthritis and arthralgias. SKIN: No rashes or lesions. PSYCHIATRIC: No history of depression or mental illness. ENDOCRINE: No history of diabetes, thyroid disorders, or abnormal hair growth. 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 (4) Hemangioma (5) Orthostatic hypotension Surgical Problems: (1) H/O mastectomy (2) H/O: hysterectomy (3) S/P total knee replacement Family History Cancer Heart disease Social History Smoking Status: Never Smoker Alcohol Use: none Drug Use: none Marital Status: Housing Status: lives with family Occupation Status: retired Current/Historical Medications Scheduled Acetaminophen (Tylenol), 1,000 MG PO PRN Anastrozole (Anastrozole), 1 TAB PO DAILY Atorvastatin (Lipitor), 10 MG PO QPM Candesartan Cilexetil (Atacand), 32 MG PO QAM Cephalexin (Keflex), 1 CAP PO TID Cholecalciferol (Vitamin D), 2,000 INTER.UNIT PO QAM Clonidine Hcl (Catapres), 0.1 MG PO BID Clotrimazole W/ Betamethasone (Lotrisone), 1 APPLN TOP BID Famotidine (Pepcid), 20 MG PO QAM Felodipine (Felodipine ER), 5 MG PO BID Fluticasone Propionate (Fluticasone Propionate), 1 SPRAYS VALERIE QAM Magnesium Chloride (Slow-Mag Tab), 64 MG PO DAILY Nebivolol Hcl (Bystolic), 20 MG PO QAM Rivaroxaban (Xarelto), 20 MG PO QPM Tamoxifen (Nolvadex), 20 MG PO DAILY Triamterene/Hctz (Dyazide 37.5MG/25MG), 1 TAB PO QAM Physical Exam Vital Signs Date Time Temp Pulse Resp B/P (MAP) Pulse Ox O2 Delivery O2 Flow Rate FiO2 04/24/17 11:46 36.9 68 18 142/66 96 04/24/17 11:16 36.9 68 18 142/66 96 Room Air Physical Exam Gen.: Well-developed, well-nourished, elderly white female, in no acute distress. Sitting in a chair. Alert and oriented. Skin:Warm and dry with good turgor. No rashes. No ecchymosis. She has 2 healing surgical incisions on the left breast. Mild erythema present around the lower incision. Nothing is expressible. No active drainage. No palpable pocket or abscess. The patient is not diaphoretic. No abrasions. Breast: Evaluation of left breast reveals 2 surgical incision sites that are healing. Upper incision site looks very good with no drainage and no redness. The lower incision has a large eschar present. There is some mild redness around it. No active drainage. It is nonfluctuant. No warmth. Nontender to touch. No palpable subcutaneous abscess. Medical Decision & Procedures ED Course Patient was educated regarding today's findings. Conservative care measures were discussed. She was reassured that I do not suspect significant infection. As a precaution, she was placed on Keflex 500 mg 3 times a day 5 days. Keep the area clean with soap and water and cover with Triple Antibiotic ointment. Follow-up with her surgeon on Tuesday as scheduled. Tylenol every 6 hours as needed for mild discomfort. Return to the ED for any acute changes or worsening of symptoms. Medical Decision Possibility of postsurgical infection, deep tissue abscess, cellulitis, and skin irritation were considered among others. [place] Drug Monitoring Program Search Results: no issues identified Medication Reconcilliation Current Medication List: was personally reviewed by me Blood Pressure Screening Patient's blood pressure: Normal blood pressure Impression Primary Impression: Cellulitis of left breast Departure Information Dispostion Home / Self-Care Condition GOOD Prescriptions Cephalexin (KEFLEX) 500 Mg Cap 1 CAP PO TID for 5 Days, #15 CAP Prov: Janak Roberts,P.A. 04/24/17 Forms WORK / SCHOOL INSTRUCTIONS, HOME CARE DOCUMENTATION FORM, TYLENOL USE, IMPORTANT VISIT INFORMATION Patient Instructions My [facility] Additional Instructions Cover the area with Triple Antibiotic ointment twice per day Cleanse daily with soap and water Keflex one pill 3 times a day 5 days Follow-up with your surgeon on Tuesday as scheduled Return to the ED for any acute worsening of symptoms
== END 2017-04-24 11:49 | disposition home or self-care (01) ==
LOC: C.EDB 11:15 → C.EDA 11:49
DX: N61.0 Mastitis without abscess (principal); I48.91 Unspecified atrial fibrillation; Z90.11 Acquired absence of right breast and nipple; Z90.710 Acquired absence of both cervix and uterus; Z96.659 Presence of unspecified artificial knee joint; Z98.890 Other specified postprocedural states; Z79.01 Long term (current) use of anticoagulants

== ENCOUNTER 2017-12-26 17:20 | Inpatient (IN) | payer BC, OTHER ==
[~2017-12-26] VITALS: Ht 152.4 cm; Wt 92.6 kg
[~2017-12-26 17:20] MED LIST changes: -CHOL20009 PO; -CLOTCRE33 TOP; -FLNIN/ NAE; -MRLP17 PO; -PLN5 PO; -SNK PO; -TAMO20TA9 PO
[2017-12-26] MEDS ORDERED: DILTIAZEM HCL 5 MG/ML 5 ML VIAL ONE (17:52)
[2017-12-26] MEDS ORDERED: DILTIAZEM BOLUS / DRIP IV STA (17:53)
[2017-12-26] MEDS: ASPIRIN 81 MG CHEW PO STA ×2 (17:53→18:19)
[2017-12-26] MEDS ORDERED: SODIUM CHLORIDE 0.9% 1000ML 1,000 ML IV STA (17:55)
--- NOTE | 2017-12-26 17:58 | EMERGENCY ROOM VISIT NOTE ---
History Report prepared by Chelsie: Blas Beal Under the Supervision of: Dr. Ramirez Jaffe M.D. First contact with patient: 17:48 Chief Complaint: CARDIAC ASSESSMENT Stated Complaint: A-FIB Nursing Triage Summary: Patient ambulatory to triage with an upright and steady gait, states "I have some fluttering in my chest that started around 1100 today. I have a history of A.Fib. My last flare up was a little bit ago. I waited for a while to see if it would pass, but it won't. I am a little bit short of breath." Patient denies any pain. History of Present Illness The patient is a 87 year old female who presents to the Emergency Room with complaints of intermittent palpitations that she noticed getting worse today. The patient reports that she does have a history of atrial fibrillation in which she takes Xarelto for. She also reports that she takes medications for her hypertension. She states that she has not missed any doses of any of her medications and she also took Advil today. The patient denies chest pains, shortness of breath, abdominal pain, loss of consciousness, and history of congestive heart failure. Source of History: patient Onset: Today Position: chest (Heart ) Quality: other (Palpitations) Timing: intermittent Associated Symptoms: No LOC, No chest pain, No SOB, No abdominal pain Review of Systems See HPI for pertinent positives and negatives. A total of ten systems were reviewed and were otherwise negative. Past Medical & Surgical Medical Problems: (1) Atrial fibrillation (2) Carcinoma in situ (3) Constipation due to opioid therapy (4) Hemangioma (5) Orthostatic hypotension Surgical Problems: (1) H/O mastectomy (2) H/O: hysterectomy (3) S/P total knee replacement Family History Cancer Diabetes mellitus Gallbladder disease Heart disease Hypertension Lung disease Social History Smoking Status: Never Smoker Alcohol Use: none Drug Use: none Marital Status: Housing Status: lives with family Occupation Status: retired Current/Historical Medications Scheduled Atorvastatin (Lipitor), 10 MG PO QPM Candesartan Cilexetil (Candesartan Cilexetil), 32 MG PO QAM Cholecalciferol (Vitamin D), 2,000 INTER.UNIT PO QAM Clonidine Hcl (Catapres), 0.1 MG PO BID Famotidine (Pepcid), 20 MG PO QAM Felodipine (Felodipine ER), 5 MG PO BID Fluticasone Propionate (Fluticasone Propionate), 1 SPRAY VALERIE QAM Magnesium Chloride (Slow-Mag Tab), 64 MG PO DAILY Nebivolol HCl (Bystolic), 20 MG PO QAM Rivaroxaban (Xarelto), 20 MG PO QPM Triamterene/Hctz (Dyazide 37.5MG/25MG), 1 TAB PO QAM Scheduled PRN Acetaminophen (Tylenol), 1,000 MG PO UD PRN for Pain or Fever Allergies Coded Allergies: Phenobarbital (Verified Allergy, Intermediate, HIVES, 12/26/17) Amlodipine (Verified Allergy, Unknown, UNKNOWN, 12/26/17) Benazepril (Verified Allergy, Unknown, UNKNOWN, 12/26/17) Enalapril (Verified Allergy, Unknown, UNKNOWN, 12/26/17) Lisinopril (Verified Allergy, Unknown, UNKNOWN, 12/26/17) Simvastatin (Verified Allergy, Unknown, PT NOT AWARE HAVING TAKEN MED-NO INFORMATION, 12/26/17) Spironolactone (Verified Allergy, Unknown, UNKNOWN, 12/26/17) Codeine (Verified Adverse Reaction, Mild, HEADACHE,NAUSEA AND VOMITING, ) Hydrocodone (Verified Adverse Reaction, Mild, EXTENDED NAUSEA AND VOMITING , 12/26/17) Tramadol (Verified Adverse Reaction, Mild, NAUSEA, 12/26/17) Ciprofloxacin (Verified Adverse Reaction, Unknown, DIZZY, 12/26/17) Metoprolol (Verified Adverse Reaction, Unknown, DIZZY,DEPRESSED, 12/26/17) Physical Exam Vital Signs Date Time Temp Pulse Resp B/P (MAP) Pulse Ox O2 Delivery O2 Flow Rate FiO2 12/26/17 19:32 158/76 12/26/17 19:31 42 12/26/17 19:30 60 19 97 12/26/17 19:17 142/73 12/26/17 19:15 61 17 95 12/26/17 19:02 108/54 12/26/17 19:00 63 16 91 12/26/17 18:47 102/67 12/26/17 18:45 54 19 94 12/26/17 18:34 116/62 12/26/17 18:30 72 15 95 12/26/17 18:18 63 20 110/68 95 Room Air 12/26/17 18:06 68 20 120/73 95 Room Air 12/26/17 17:47 126 12/26/17 17:45 95 Room Air 12/26/17 17:45 95 Room Air 12/26/17 17:32 96 Room Air 12/26/17 17:30 37.0 105 20 139/80 96 Room Air Physical Exam Physical Exam GENERAL: She is oriented to person, place, and time. She appears well- developed and well-nourished. She does not appear distressed. HENT: Exam performed. Head: Normocephalic and atraumatic. Right Ear: External ear normal. No mastoid tenderness. Left Ear: External ear normal. No mastoid tenderness. Mouth/Throat: The oropharynx is clear and moist. No trismus in the jaw. No dental abscesses or uvula swelling. No oropharyngeal exudate or tonsillar abscesses. EYES: Conjunctivae and EOM are normal. Pupils are equal, round, and reactive to light. Right eye exhibits no discharge. Left eye exhibits no discharge. No scleral icterus. NECK: Normal range of motion. Neck supple. No JVD present. No spinous process tenderness present. No carotid bruit present. No rigidity. No tracheal deviation and normal range of motion present. No Brudzinski's sign and no Kernig 's sign noted. CV: Tachycardic, irregular rhythm, normal heart sounds and intact distal pulses. There is no peripheral edema. Palpable radial pulses bue. PULM/CHEST: Effort normal and breath sounds normal. No respiratory distress. No stridor. She has no wheezes. She has no rales. Chest Wall: She exhibits no tenderness. ABD: The abdomen is soft. Bowel sounds are normal. She has no distension. No mass is present. There is no tenderness. There is no rebound, no guarding, no Mendoza's sign and no tenderness at McBurney's point. Rovsig negative MUSC/SKEL: Normal range of motion. There is no peripheral edema, tenderness or deformity. LYMPH: No cervical adenopathy. NEURO: She is alert and oriented to person, place, and time. She has normal strength. No cranial nerve deficit or sensory deficit. Coordination and gait normal. GCS eye subscore is 4. GCS verbal subscore is 5. GCS motor subscore is 6. Cerebellar tests wnl. SKIN: Skin is warm and dry. She is not diaphoretic. PSYCH: She has a normal mood and affect. Behavior is normal. Judgment and thought content normal. Medical Decision & Procedures ER Provider Diagnostic Interpretation: Radiology results as stated below per my review and radiologist interpretation: CHEST ONE VIEW PORTABLE CLINICAL HISTORY: Chest pain. COMPARISON STUDY: Chest radiograph November 27, 2017. FINDINGS: Right axillary surgical clips are noted as well as a left shoulder arthroplasty. There is no pneumothorax or pleural effusion. There is no consolidation to suggest pneumonia and there is no evidence for pulmonary edema. Mild cardiomegaly is unchanged. The appearance of the chest is unchanged. IMPRESSION: No acute cardiopulmonary findings. No change in appearance of the chest. Electronically signed by: Javon Haddad M.D. 12/26/2017 6:27 PM Dictated Date/Time: 12/26/2017 6:25 PM Laboratory Results 12/26/17 17:45 Red Blood Count 4.18, Mean Corpuscular Volume 91.9, Mean Corpuscular Hemoglobin 30.1, Mean Corpuscular Hemoglobin Concent 32.8, Mean Platelet Volume 10.5, Neutrophils (%) (Auto) 62.1, Lymphocytes (%) (Auto) 28.5, Monocytes (%) (Auto) 7.0, Eosinophils (%) (Auto) 1.6, Basophils (%) (Auto) 0.6, Neutrophils # (Auto) 5.55, Lymphocytes # (Auto) 2.54, Monocytes # (Auto) 0.62, Eosinophils # (Auto) 0.14, Basophils # (Auto) 0.05 12/26/17 17:45 Test 12/26/17 17:45 White Blood Count 8.92 K/uL (4.8-10.8) Red Blood Count 4.18 M/uL (4.2-5.4) Hemoglobin 12.6 g/dL (12.0-16.0) Hematocrit 38.4 % (37-47) Mean Corpuscular Volume 91.9 fL (80-100) Mean Corpuscular Hemoglobin 30.1 pg (25-34) Mean Corpuscular Hemoglobin Concent 32.8 g/dl (32-36) Platelet Count 292 K/uL (130-400) Mean Platelet Volume 10.5 fL (7.4-10.4) Neutrophils (%) (Auto) 62.1 % Lymphocytes (%) (Auto) 28.5 % Monocytes (%) (Auto) 7.0 % Eosinophils (%) (Auto) 1.6 % Basophils (%) (Auto) 0.6 % Neutrophils # (Auto) 5.55 K/uL (1.4-6.5) Lymphocytes # (Auto) 2.54 K/uL (1.2-3.4) Monocytes # (Auto) 0.62 K/uL (0.11-0.59) Eosinophils # (Auto) 0.14 K/uL (0-0.5) Basophils # (Auto) 0.05 K/uL (0-0.2) RDW Standard Deviation 44.2 fL (36.4-46.3) RDW Coefficient of Variation 13.3 % (11.5-14.5) Immature Granulocyte % (Auto) 0.2 % Immature Granulocyte # (Auto) 0.02 K/uL (0.00-0.02) Anion Gap 10.0 mmol/L (3-11) Est Creatinine Clear Calc Drug Dose 40.5 ml/min Estimated GFR () 57.0 Estimated GFR (Non- 49.2 BUN/Creatinine Ratio 18.5 (10-20) Calcium Level 9.0 mg/dl (8.5-10.1) Magnesium Level 1.9 mg/dl (1.8-2.4) Troponin I < 0.015 ng/ml (0-0.045) Laboratory results reviewed by me Medications Administered Medications (Trade) Dose Ordered Sig/Jose Cruz Route Start Time Stop Time Status Last Admin Dose Admin Diltiazem HCl (Cardizem Inj) 25 mg STK-MED ONCE .ROUTE 12/26/17 17:52 12/26/17 17:53 DC 12/26/17 18:00 10 MG Aspirin (Aspirin Chew) 324 mg NOW STAT PO 12/26/17 17:53 12/26/17 17:56 DC 12/26/17 18:19 324 MG Sodium Chloride 1,000 ml @ 125 mls/hr Q8H STAT IV 12/26/17 17:55 12/26/17 22:07 DC 12/26/17 17:55 125 MLS/HR Diltiazem HCl 125 mg/Dextrose 125 ml @ 0 mls/hr Q0M PRN IV 12/26/17 18:15 12/27/17 18:14 12/26/17 18:24 5 MLS/HR ECG Per My Interpretation Indication: tachycardia Rate (beats per minute): 114 Rhythm: atrial fibrillation Findings: other (QRS and QTC intervals within normal limits. No ST elevation or depression) Comparison ECG Date: Repeat (1756) Change: Atrial fibrillation, rate of 83, QRS and QTC intervals within normal limits. No ST elevation or depression. ED Course 1748: The patient was evaluated in room A12. I saw the patient immediately and put her on a school bus monitor which showed atrial fibrillation with heart rate between 100-140. Cardizem bolus 10mg was given and her heart rate improved. Repeat EKG showed atrial fibrillation with improved heart rate. A Cardizem drip was ordered. 1751: Diltiazem HCl 25mg .route 1752: Diltiazem 1 ea IV 1814: Diltiazem HCl 125mg/Dextrose 125ml @ 0 mls/hr protocol 1907: I reevaluated the patient and her vitals were stable under the Cardizem drip. Labs and imaging are within normal limits. I spoke with Dr. Vargas [facility] Hospitalist and she accepted the admission of the patient. 1942: I reevaluated the patient via telemetry and she was having occasional sinus pauses so I stopped the Cardizem drip. The patient was A&O x4 and blood pressure was stable. Medical Decision 1748: The patient was evaluated in room A12. I saw the patient immediately and put her on a school bus monitor which showed atrial fibrillation with heart rate between 100-140. Cardizem bolus 10mg was given and her heart rate improved. Repeat EKG showed atrial fibrillation with improved heart rate. A Cardizem drip was ordered. 1751: Diltiazem HCl 25mg .route 1752: Diltiazem 1 ea IV 1814: Diltiazem HCl 125mg/Dextrose 125ml @ 0 mls/hr protocol 1907: I reevaluated the patient and her vitals were stable under the Cardizem drip. Labs and imaging are within normal limits. I spoke with Dr. Vargas [facility] Hospitalist and she accepted the admission of the patient. 1942: I reevaluated the patient via telemetry and she was having occasional sinus pauses so I stopped the Cardizem drip. The patient was A&O x4 and blood pressure was stable. Medication Reconcilliation Current Medication List: was personally reviewed by me Blood Pressure Screening Patient's blood pressure: Elevated blood pressure Blood pressure disposition: Elevated BP felt to be situational Consults Time Called: 1905 Consulting Physician: Dr. Sam Rendon [facility] Hospitalist Returned Call: 1907 Discussed the patient's case with Dr. Sam Rendon [facility] Hospitalist . The patient will be evaluated for further treatment and disposition. Impression Primary Impression: Atrial fibrillation with rapid ventricular response Critical Care I have personally spent greater than 82 minutes of critical care time in the direct management of this patient. This includes bedside care, interpretation of diagnostic studies, and testing, discussion with consultants, patient, and family members, and other required patient management activities. This 82 minutes is in excess of all separately billable procedures. Scribe Attestation The scribe's documentation has been prepared under my direction and personally reviewed by me in its entirety. I confirm that the note above accurately reflects all work, treatment, procedures, and medical decision making performed by me. The chart was completed utilizing [employer] Speech voice recognition software. Grammatical errors, random word insertions, pronoun errors, and incomplete sentences are an occasional consequence of this system due to software limitations, ambient noise, and hardware issues. Any formal questions or concerns about the content, text, or information contained within the body of this dictation should be directly addressed to the physician for clarification. Departure Information Dispostion Being Evaluated By Hospitalist Referrals Isiah Mojica M.D. (PCP) Forms IMPORTANT VISIT INFORMATION Patient Instructions My [facility]
[2017-12-26 18:15] LABS: BASO % 0.6 %; BASO ABS # 0.05 K/uL (0-0.2); EOS % 1.6 %; EOS ABS # 0.14 K/uL (0-0.5); HEMATOCRIT 38.4 % (37-47); HEMOGLOBIN 12.6 g/dL (12.0-16.0); IG# 0.02 K/uL (0.00-0.02); LYMPH % 28.5 %; LYMPH ABS # 2.54 K/uL (1.2-3.4); MEAN CELL VOLUME 91.9 fL (80-100); MEAN CORPUSCULAR HEMOGLOBIN 30.1 pg (25-34); MEAN CORPUSCULAR HGB CONC 32.8 g/dl (32-36); MEAN PLATELET VOLUME 10.5 fL (7.4-10.4); MONO ABS # 0.62 K/uL (0.11-0.59); NEUT % 62.1 %; NEUT ABS # 5.55 K/uL (1.4-6.5); PLATELET COUNT 292 K/uL (130-400); RED CELL DISTRIBUTION WIDTH CV 13.3 % (11.5-14.5); RED CELL DISTRIBUTION WIDTH SD 44.2 fL (36.4-46.3); WHITE BLOOD COUNT 8.92 K/uL (4.8-10.8)
[2017-12-26] MEDS ORDERED: DILTIAZEM HCL INJ 125 MG in DEXTROSE 5% 100ML IV PRN (18:15)
--- NOTE | 2017-12-26 18:28 | DIAGNOSTIC IMAGING REPORT ---
CHEST ONE VIEW PORTABLE CLINICAL HISTORY: Chest pain. COMPARISON STUDY: Chest radiograph November 27, 2017. FINDINGS: Right axillary surgical clips are noted as well as a left shoulder arthroplasty. There is no pneumothorax or pleural effusion. There is no consolidation to suggest pneumonia and there is no evidence for pulmonary edema. Mild cardiomegaly is unchanged. The appearance of the chest is unchanged. IMPRESSION: No acute cardiopulmonary findings. No change in appearance of the chest. Electronically signed by: Javon Haddad M.D. 12/26/2017 6:27 PM Dictated Date/Time: 12/26/2017 6:25 PM
[2017-12-26 18:41] LABS: BLOOD UREA NITROGEN 19 mg/dl (7-18); CARBON DIOXIDE 23 mmol/L (21-32); CREATININE 1.03 mg/dl (0.60-1.20); GLUCOSE 254 mg/dl (70-99); SODIUM 136 mmol/L (136-145)
[2017-12-26] MEDS ORDERED: CTP1CL PO (18:56)
[2017-12-26] MEDS ORDERED: LPT10 PO (18:56)
[2017-12-26] MEDS ORDERED: CAND1TAB21 PO (18:56)
[2017-12-26] MEDS ORDERED: [UNRECOGNIZED DRUG - CODE] PO (18:56)
[2017-12-26] MEDS ORDERED: XRL20 PO (18:56)
[2017-12-26] MEDS ORDERED: ONDANSETRON INJ 2 MG/ML 2 ML VIAL IV PRN (19:30)
--- NOTE | 2017-12-26 20:03 | History and Physical ---
History & Physical Date & Time of Service: Dec 26, 2017 at 19:34 Chief Complaint: A-FIB Primary Care Physician: Isiah Mojica M.D. History of Present Illness Source: patient Patient is a pleasant 87yo female with history of AF, GERD, HTN, HLP presenting with palpitations and rapid heart rate that started acutely at 11:00 this morning. Symptoms persisted throughout the day, patient presented to the ER around 17:00 with HR of 126 bpm. Patient has longstanding history of atrial fibrillation, she says that it is fairly well controlled. Has an episode of RVR about once yearly but this is the second time this year. She denies chest pain, syncope, presyncope, dizziness. No additional complaints at this time. She follows with Dr. Calixto of Cardiology. ER Course: ASA 324mg, Diltiazem gtt Past Medical/Surgical History Medical Problems: Atrial fibrillation Anemia Breast cancer - s/p mastectomy and XRT Hypertension Hyperlipidemia GERD Surgical Problems: (1) H/O mastectomy (2) H/O: hysterectomy (3) S/P total knee replacement bilaterally S/P carpal tunnel release S/P left shoulder Family History Cancer Diabetes mellitus Gallbladder disease Heart disease Hypertension Lung disease Social History Smoking Status: Never Smoker Smokeless Tobacco Use: No Alcohol Use: socially Drug Use: none Marital Status: Housing status: lives with family Occupational Status: retired Immunizations History of Influenza Vaccine: N/A History of Tetanus Vaccine?: Yes History of Pneumococcal: Yes History of Hepatitis B Vaccine: No Allergies Coded Allergies: Phenobarbital (Verified Allergy, Intermediate, HIVES, 12/26/17) Amlodipine (Verified Allergy, Unknown, UNKNOWN, 12/26/17) Benazepril (Verified Allergy, Unknown, UNKNOWN, 12/26/17) Enalapril (Verified Allergy, Unknown, UNKNOWN, 12/26/17) Lisinopril (Verified Allergy, Unknown, UNKNOWN, 12/26/17) Simvastatin (Verified Allergy, Unknown, PT NOT AWARE HAVING TAKEN MED-NO INFORMATION, 12/26/17) Spironolactone (Verified Allergy, Unknown, UNKNOWN, 12/26/17) Codeine (Verified Adverse Reaction, Mild, HEADACHE,NAUSEA AND VOMITING, ) Hydrocodone (Verified Adverse Reaction, Mild, EXTENDED NAUSEA AND VOMITING , 12/26/17) Tramadol (Verified Adverse Reaction, Mild, NAUSEA, 12/26/17) Ciprofloxacin (Verified Adverse Reaction, Unknown, DIZZY, 12/26/17) Metoprolol (Verified Adverse Reaction, Unknown, DIZZY,DEPRESSED, 12/26/17) Home Medications Scheduled Atorvastatin (Lipitor), 10 MG PO QPM Candesartan Cilexetil (Candesartan Cilexetil), 32 MG PO QAM Cholecalciferol (Vitamin D), 2,000 INTER.UNIT PO QAM Clonidine Hcl (Catapres), 0.1 MG PO BID Famotidine (Pepcid), 20 MG PO QAM Felodipine (Felodipine ER), 5 MG PO BID Fluticasone Propionate (Fluticasone Propionate), 1 SPRAY VALERIE QAM Magnesium Chloride (Slow-Mag Tab), 64 MG PO DAILY Nebivolol HCl (Bystolic), 20 MG PO QAM Rivaroxaban (Xarelto), 20 MG PO QPM Triamterene/Hctz (Dyazide 37.5MG/25MG), 1 TAB PO QAM Scheduled PRN Acetaminophen (Tylenol), 1,000 MG PO UD PRN for Pain or Fever Review of Systems Constitutional: No fever, No chills, No sweats Eyes: No worsening of vision, No diplopia ENT: No hearing loss, No sore throat Respiratory: No cough, No wheezing, No shortness of breath, No dyspnea on exertion Cardiovascular: + palpitations, No chest pain, No orthopnea, No edema Abdomen: No pain, No nausea, No vomiting, No diarrhea Musculoskeletal: No joint pain Genitourinary - Female: No dysuria Neurologic: No weakness Endocrine: No fatigue Hematologic / Lymphatic: No abnormal bleeding/bruising Integumentary: No rash Physical Exam Vital Signs Date Time Temp Pulse Resp B/P (MAP) Pulse Ox O2 Delivery O2 Flow Rate FiO2 12/26/17 18:18 63 20 110/68 95 Room Air 12/26/17 18:06 68 20 120/73 95 Room Air 12/26/17 17:47 126 12/26/17 17:45 95 Room Air 12/26/17 17:45 95 Room Air 12/26/17 17:32 96 Room Air 12/26/17 17:30 37.0 105 20 139/80 96 Room Air General: patient resting comfortably in bed, NAD, AA&O x 4 Skin: warm, dry, intact, chronic stasis changes of bilateral LE with skin thickening and edema, no evidence of cellulitis or infection HEENT: NC/AT, PERRL, EOMI, anicteric sclera, conjunctiva without injection, nares patent, moist mucus membranes, no oropharyngeal lesions, neck supple, trachea midline, no thyromegaly, no LAD Heart: +S1/S2, irregularly irregular, no m/r/g Lungs: equal air entry bilaterally, no rales/rhonchi/wheezes Abdomen: soft, NT/ND, no masses/organomegaly/ascites Extremities: warm, well perfused, no clubbing/cyanosis, 2+ nonpitting edema, 2 + palpable pulses in UE/LE bilaterally Neuro: grossly intact Diagnostics Laboratory Results Results Past 24 Hours Test 12/26/17 17:45 Range/Units White Blood Count 8.92 4.8-10.8 K/uL Red Blood Count 4.18 4.2-5.4 M/uL Hemoglobin 12.6 12.0-16.0 g/dL Hematocrit 38.4 37-47 % Mean Corpuscular Volume 91.9 80-100 fL Mean Corpuscular Hemoglobin 30.1 25-34 pg Mean Corpuscular Hemoglobin Concent 32.8 32-36 g/dl Platelet Count 292 130-400 K/uL Mean Platelet Volume 10.5 7.4-10.4 fL Neutrophils (%) (Auto) 62.1 % Lymphocytes (%) (Auto) 28.5 % Monocytes (%) (Auto) 7.0 % Eosinophils (%) (Auto) 1.6 % Basophils (%) (Auto) 0.6 % Neutrophils # (Auto) 5.55 1.4-6.5 K/uL Lymphocytes # (Auto) 2.54 1.2-3.4 K/uL Monocytes # (Auto) 0.62 0.11-0.59 K/uL Eosinophils # (Auto) 0.14 0-0.5 K/uL Basophils # (Auto) 0.05 0-0.2 K/uL RDW Standard Deviation 44.2 36.4-46.3 fL RDW Coefficient of Variation 13.3 11.5-14.5 % Immature Granulocyte % (Auto) 0.2 % Immature Granulocyte # (Auto) 0.02 0.00-0.02 K/uL Sodium Level 136 136-145 mmol/L Potassium Level 4.0 3.5-5.1 mmol/L Chloride Level 103 98-107 mmol/L Carbon Dioxide Level 23 21-32 mmol/L Anion Gap 10.0 3-11 mmol/L Blood Urea Nitrogen 19 7-18 mg/dl Creatinine 1.03 0.60-1.20 mg/dl Est Creatinine Clear Calc Drug Dose 40.5 ml/min Estimated GFR () 57.0 Estimated GFR (Non- 49.2 BUN/Creatinine Ratio 18.5 10-20 Random Glucose 254 70-99 mg/dl Calcium Level 9.0 8.5-10.1 mg/dl Magnesium Level 1.9 1.8-2.4 mg/dl Troponin I < 0.015 0-0.045 ng/ml Diagnostic Radiology CHEST ONE VIEW PORTABLE CLINICAL HISTORY: Chest pain. COMPARISON STUDY: Chest radiograph November 27, 2017. FINDINGS: Right axillary surgical clips are noted as well as a left shoulder arthroplasty. There is no pneumothorax or pleural effusion. There is no consolidation to suggest pneumonia and there is no evidence for pulmonary edema. Mild cardiomegaly is unchanged. The appearance of the chest is unchanged. IMPRESSION: No acute cardiopulmonary findings. No change in appearance of the chest. Electronically signed by: Javon Haddad M.D. 12/26/2017 6:27 PM Dictated Date/Time: 12/26/2017 6:25 PM EKG The study reveals atrial fibrillation at 83bpm, no evidence of acute ischemia Impression Assessment and Plan 87yo female with history of AF on anticoagulation with Xarelto presenting with RVR, HR of 126. 1. Atrial fibrillation with RVR - heart rate 63-126, presently well controlled on diltiazem drip. Blood pressure stable. Anticoagulated on Xarelto. Patient has had intolerance to Metoprolol in the past, severe fatigue. She had an episode of AF with RVR in 2014 for which she was treated with Cardizem resulting in bradycardia, hypotension and pauses > 3 seconds. Notified by nurse of prolonged pause noted on monitor in ER [facility] while on Cardizem drip. She was seen by Cardiology during that visit. Follows annually with Dr. Calixto , no medication adjustments have been made. Troponin x 1 negative -Discontinue cardizem drip. Will not treat with PO Cardizem at this time. -Increase Bystolic to 30mg po daily. Patient does not have Bystolic with her at this time and it is not carried by pharmacy, will give Carvedilol x 1 dose tonight -Monitor on telemetry -Continue Xarelto anticoagulation 2. GERD - stable, chronic -Continue Pepcid 20mg po daily 3. Hyperlipidemia- stable, chronic -Continue Atorvastatin 10mg po daily 4. Hypertension- stable, chronic. BP presently 110/68 -Discontinuing Cardizem drip as above -Continue Dyazide -Continue Clonidine with holding parameters -Continue Candesartan 5. F/E/N - Heplock. Monitor electrolytes and replete as needed. AHA diet as tolerated 6. Ppx - Continue Xarelto and Pepcid at home doses 7. Code - full 8. Dispo - admit to telemetry Resuscitation Status VTE Prophylaxis Will order VTE Prophylaxis: No Reason for no VTE drug order: Treatment not indicated Reason no Mechanical VTE Order: Treatment not indicated
[2017-12-26] MEDS ORDERED: CARVEDILOL 6.25 MG TAB PO ONE (20:15)
[2017-12-26 20:48] VITALS: BP 174/97; PULSE 91; TEMP 36.5; O2SAT 95; Ht 152.4 cm; Wt 92.6 kg
[2017-12-26] MEDS: CLONIDINE HCL 0.1 MG TAB PO SCH (21:00)
[2017-12-26] MEDS ORDERED: FLNIN/ NAE (22:03)
[2017-12-26] MEDS ORDERED: PLN5 PO (22:03)
[2017-12-26] MEDS ORDERED: CHOL20009 PO (22:10)
[2017-12-26 22:27] VITALS: BP 117/66; PULSE 86
[2017-12-26] MEDS: FELODIPINE 5 MG TABCR PO SCH (22:27)
[2017-12-26] MEDS: ATORVASTATIN 10 MG TAB PO SCH (22:27)
[2017-12-26] MEDS: RIVAROXABAN 20 MG TAB PO SCH (22:27)
[2017-12-26 23:33] VITALS: BP 115/74; PULSE 75; TEMP 36.3; O2SAT 96
[2017-12-27] VITALS (9 sets, daily range): BP systolic 115–145; BP diastolic 71–89; PULSE 75–110; TEMP 36.4–36.8; O2SAT 92–98
[2017-12-27] MEDS: ACETAMINOPHEN 325 MG TAB PO PRN ×3 (05:38→19:23)
[2017-12-27] MEDS: MAGNESIUM CHLORIDE 64MG DELAYED REL TAB PO SCH (07:46)
[2017-12-27] MEDS: FLUTICASONE PROPIONATE NA SPR 16 GM BTL NAE SCH (07:46)
[2017-12-27] MEDS: FAMOTIDINE 20 MG TAB PO SCH (07:47)
[2017-12-27] MEDS: CHOLECALCIFEROL 1000 INTER.UNIT TAB PO SCH (07:47)
[2017-12-27] MEDS: CLONIDINE HCL 0.1 MG TAB PO SCH ×2 (07:47→23:02)
[2017-12-27] MEDS: FELODIPINE 5 MG TABCR PO SCH ×2 (07:48→20:47)
[2017-12-27] MEDS: TRIAMTERENE/HCTZ 37.5/25MG CAP PO SCH (07:48)
--- NOTE | 2017-12-27 07:49 | Clinical Documentation Query ---
RADHA Landrum : CLINICAL DOCUMENTATION QUERY Patient is an 87 year old female presenting with palpitations and rapid heart rate. EMR review yields a BMI of 40 kg/m*m. In order to capture this clinical information, the provider must explicitly document an associated clinical diagnosis. As appropriate, consider documentation as suggested below as this affects accurate DRG assignment. Thank you. In your clinical opinion is this patient: ( x ) Clinically obese, BMI 40.0 kg/m*m ( ) Not Agree ( ) Other explanation of clinical findings (No explanation is considered a No Response) ( ) Unable to determine ( ) Need to Discuss (Phone CDS or qliq) (No discussion is considered a No Response) The medical record reflects the following clinical findings, treatment, and risk factors. Clinical Indicators: As above Treatment: treatment of comorbid conditions Risk Factors: Caloric intake > caloric expenditure Please clarify and document your clinical opinion in the progress notes and discharge summary. Terms such as "probable", "suspected", "likely", "questionable", "possible", or "still to be ruled out" are acceptable. IF IN AGREEMENT, YOU MUST DOCUMENT ABOVE DIAGNOSTIC STATEMENT IN DAILY PROGRESS NOTES AND DISCHARGE SUMMARY. This document is not part of the patient's record. Thank You, Miah Olmos, RN [phone]
[2017-12-27 10:17] LABS: CREATININE 0.74 mg/dl (0.60-1.20); POTASSIUM 3.7 mmol/L (3.5-5.1)
[2017-12-27] MEDS: NEBIVOLOL HCL 20 MG PO SCH (10:40)
[2017-12-27] MEDS: CANDESARTAN CILEXETIL 32 MG PO SCH (10:41)
[2017-12-27] MEDS ORDERED: MAGNESIUM SULFATE 1GM / D5W 100 ML IV STA (12:16)
[2017-12-27] MEDS ORDERED: POTASSIUM CHLORIDE 20 MEQ TABCR PO STA (12:16)
--- NOTE | 2017-12-27 14:15 | Cardiology Consultation ---
Cardiology Consultation Date of Consultation: Dec 27, 2017. Requesting Physician: Rosalba Reason for Consultation: Atrial fibrillation Pt evaluation today including: conversation w/ patient, conversation w/ family , physical exam, chart review, lab review, review of studies, review of inpatient medication list, conversation w/ attending History of Present Illness The patient is an 87-year-old woman with a history of paroxysmal atrial fibrillation who presented to [facility] with atrial fibrillation. Patient states yesterday afternoon she began to notice see onset of palpitations. She noticed that her heartbeat was slightly faster. She did not report additional symptoms such as significant dyspnea, chest pain or dizziness. She rarely has palpitations of this nature but did recognize it as atrial fibrillation. Based on which she perceives to be higher ventricular rates she presented to [facility] for evaluation. In the emergency room she was felt to have high rates. She was administered some diltiazem which was later discontinued. She was admitted for observation. She continues to feel a sense of palpitation but otherwise feels well. She has been ambulatory around her room without symptoms of chest pain, dizziness, dyspnea or presyncope. She is somewhat frustrated in that she had an event similar in November of this year. Generally speaking she has very infrequent episodes, perhaps once per year. Overall she is a sedentary individual who does some housework. She does not participate in routine exercise. She can as sending descend stairs without significant limitation. She has not report exertional chest pain or dyspnea. She denies any orthopnea or paroxysmal nocturnal dyspnea. She claims to sleep well. She is aware of some lower extremity edema which is chronic. Better in the morning worse in the afternoon. Past Medical/Surgical History Atrial fibrillation, paroxysmal Breast cancer Gastroesophageal reflux disease Hypertension Diabetes mellitus Past surgical history: Right mastectomy Left breast lumpectomy Left shoulder replacement Tonsillectomy Hysterectomy Knee replacement Neck surgery Family History Cancer Diabetes mellitus Gallbladder disease Heart disease Hypertension Lung disease Noncontributory given her advanced age Social History Smoking Status: Never Smoker History of Alcohol Use: Yes (Very rare, holidays, special occasions.) Currently lives at home with her Review of Systems Per HPI. Patient claims to have been feeling well recently. She has not report any recent constitutional symptoms such as fevers or chills. All Other Systems: Reviewed and Negative Allergies Coded Allergies: Phenobarbital (Verified Allergy, Intermediate, HIVES, 12/26/17) Amlodipine (Verified Allergy, Unknown, UNKNOWN, 12/26/17) Benazepril (Verified Allergy, Unknown, UNKNOWN, 12/26/17) Enalapril (Verified Allergy, Unknown, UNKNOWN, 12/26/17) Lisinopril (Verified Allergy, Unknown, UNKNOWN, 12/26/17) Simvastatin (Verified Allergy, Unknown, PT NOT AWARE HAVING TAKEN MED-NO INFORMATION, 12/26/17) Spironolactone (Verified Allergy, Unknown, UNKNOWN, 12/26/17) Codeine (Verified Adverse Reaction, Mild, HEADACHE,NAUSEA AND VOMITING, ) Hydrocodone (Verified Adverse Reaction, Mild, EXTENDED NAUSEA AND VOMITING , 12/26/17) Tramadol (Verified Adverse Reaction, Mild, NAUSEA, 12/26/17) Ciprofloxacin (Verified Adverse Reaction, Unknown, DIZZY, 12/26/17) Metoprolol (Verified Adverse Reaction, Unknown, DIZZY,DEPRESSED, 12/26/17) Medications Current Inpatient Medications Medications (Trade) Dose Ordered Sig/Jose Cruz Route Start Time Stop Time Status Last Admin Dose Admin Diltiazem HCl 125 mg/Dextrose 125 ml @ 0 mls/hr Q0M PRN IV 12/26/17 18:15 12/27/17 18:14 12/26/17 18:24 5 MLS/HR Acetaminophen (Tylenol Tab) 650 mg Q4H PRN PO 12/26/17 19:30 01/25/18 19:29 12/27/17 12:15 650 MG Ondansetron HCl (Zofran Inj) 4 mg Q6H PRN IV 12/26/17 19:30 01/25/18 19:29 Atorvastatin Calcium (Lipitor Tab) 10 mg QPM PO 12/26/17 21:00 01/25/18 20:59 12/26/17 22:27 10 MG Clonidine HCl (Catapres Tab) 0.1 mg BID PO 12/26/17 21:00 01/25/18 20:59 12/27/17 07:47 0.1 MG Famotidine (Pepcid Tab) 20 mg QAM PO 12/27/17 09:00 01/26/18 08:59 12/27/17 07:47 20 MG Felodipine (Plendil Tabcr) 5 mg BID PO 12/26/17 21:00 01/25/18 20:59 Future hold 12/27/17 07:48 5 MG Fluticasone Propionate (Flonase Nasal [place]) QAM VALERIE 12/27/17 09:00 01/26/18 08:59 12/27/17 07:46 1 SPRAYS Magnesium Chloride (Slow-Mag Tab) 64 mg DAILY PO 12/27/17 09:00 01/26/18 08:59 12/27/17 07:46 64 MG Rivaroxaban (Xarelto Tab) 20 mg QDD PO 12/26/17 21:00 01/25/18 20:59 12/26/17 22:27 20 MG Triamterene/HCTZ (Dyazide 37.5/25 Mg Cap) 1 cap QAM PO 12/27/17 09:00 01/26/18 08:59 12/27/17 07:48 1 CAP Cholecalciferol (Vitamin D Tab) 2,000 inter.unit QAM PO 12/27/17 09:00 01/26/18 08:59 12/27/17 07:47 2,000 INTER.UNIT Non-Formulary Medication (Non-Formulary Patient'S Own Med) 1 ea DAILY PO 12/27/17 09:00 01/26/18 08:59 12/27/17 10:41 1 EA Nebivolol (Bystolic) 20 mg DAILY PO 12/27/17 09:00 01/26/18 08:59 12/27/17 10:40 20 MG Physical Exam Vital Signs Past 12 Hours Date Time Temp Pulse Resp B/P (MAP) Pulse Ox O2 Delivery O2 Flow Rate FiO2 12/27/17 10:47 36.5 12/27/17 10:39 75 16 116/74 (88) 96 Room Air 12/27/17 08:00 Room Air 12/27/17 06:35 36.4 78 20 145/73 (97) 98 Room Air 12/27/17 04:08 36.8 96 20 126/71 (89) 93 Room Air 12/27/17 04:00 Room Air She is alert and oriented x3. Mood affect appear normal. She answered all questions appropriately. Obese HEENT: Sclerae are anicteric. Pupils are equal and reactive to light and accommodation. Extraocular movements were intact. Neuro: Cranial nerves intact Neck: Examination of the submandibular region did not reveal any significant lymphadenopathy. Carotids are palpable bilaterally and free of bruits on auscultation. There was no evidence of jugular venous distention. The thyroid was not enlarged. Lungs: Lungs are clear to auscultation bilaterally. There are no rales wheezes or rhonchi. She has normal respiratory effort without use of accessory muscles. There is normal pulmonary excursion. Cardiac: The rhythm was irregular. S1 and S2 were normal. There are no murmurs on examination. The PMI was not markedly displaced on palpation. Abdomen: The abdomen was soft and nontender. Extremities: Patient has bilateral radial pulses that are equal in intensity. There is no evidence cyanosis or clubbing. She had moderate lower extremity edema. Skin: There are no rashes noted on examination today. Data Laboratory Results: Last 24 Hours Test 12/26/17 17:45 12/27/17 09:21 White Blood Count 8.92 K/uL Red Blood Count 4.18 M/uL Hemoglobin 12.6 g/dL Hematocrit 38.4 % Mean Corpuscular Volume 91.9 fL Mean Corpuscular Hemoglobin 30.1 pg Mean Corpuscular Hemoglobin Concent 32.8 g/dl Platelet Count 292 K/uL Mean Platelet Volume 10.5 fL Neutrophils (%) (Auto) 62.1 % Lymphocytes (%) (Auto) 28.5 % Monocytes (%) (Auto) 7.0 % Eosinophils (%) (Auto) 1.6 % Basophils (%) (Auto) 0.6 % Neutrophils # (Auto) 5.55 K/uL Lymphocytes # (Auto) 2.54 K/uL Monocytes # (Auto) 0.62 K/uL Eosinophils # (Auto) 0.14 K/uL Basophils # (Auto) 0.05 K/uL RDW Standard Deviation 44.2 fL RDW Coefficient of Variation 13.3 % Immature Granulocyte % (Auto) 0.2 % Immature Granulocyte # (Auto) 0.02 K/uL Sodium Level 136 mmol/L 138 mmol/L Potassium Level 4.0 mmol/L 3.7 mmol/L Chloride Level 103 mmol/L 104 mmol/L Carbon Dioxide Level 23 mmol/L 25 mmol/L Anion Gap 10.0 mmol/L 9.0 mmol/L Blood Urea Nitrogen 19 mg/dl 15 mg/dl Creatinine 1.03 mg/dl 0.74 mg/dl Est Creatinine Clear Calc Drug Dose 40.5 ml/min 55.5 ml/min Estimated GFR () 57.0 85.0 Estimated GFR (Non- 49.2 73.4 BUN/Creatinine Ratio 18.5 19.7 Random Glucose 254 mg/dl 168 mg/dl Calcium Level 9.0 mg/dl 9.0 mg/dl Magnesium Level 1.9 mg/dl 1.9 mg/dl Troponin I < 0.015 ng/ml Imaging: Chest x-ray the time of admission was normal. EKG: Atrial fibrillation, otherwise unremarkable Telemetry reviewed: Atrial fibrillation with variable ventricular response. Echocardiogram performed 07/11/2014: Mild LV dilation with normal left ventricular systolic function. Mild pulmonary hypertension with an estimated right ventricular systolic pressure of 39 millimeters of mercury Assessment & Plan 1. Atrial fibrillation: Paroxysmal. Patient actually done quite well with respect to her atrial fibrillation over the years. She tends to have fairly infrequent episodes of his never actually required a cardioversion if she spontaneously converts within a short time frame. Her last episode in November of this year terminated spontaneously at home. My hope is that she again converts to sinus rhythm on her own during this hospitalization. She has symptomatic and we should consider electrical cardioversion if she does not convert on her own. I discussed the procedure with the patient. She has been on Xarelto regularly. Will plan on cardioversion tomorrow if she does not convert overnight. With respect to long-term management of her atrial fibrillation, there has been some concern over brief sinus pauses and an element of bradycardia on more aggressive rate control therapy. This may be a potential issue moving forward she continues to have frequent episodes with fast ventricular rates. It does seem that when she is in atrial fibrillation her rate control is suboptimal. However to date she has only had very brief episodes and more aggressive regimen is not been necessary. The option of antiarrhythmic therapy also exists if she has more frequent episodes. Amiodarone and dofetilide would be attractive choices, but they are likely to produce more bradycardia and would likely require pacemaker implantation for full utilization. Dofetilide may be an option given her normal renal function. This would be less likely to produce any slowing of her ventricular rate. However, at this point I do not feel the more aggressive therapy is warranted. She still has fairly infrequent episodes. However, it is very likely that moving for which she will have more frequent or prolonged episodes and will have to discuss additional therapy at that time. She should continue on Xarelto indefinitely.
--- NOTE | 2017-12-27 14:53 | Hospitalist Progress Note ---
Hospitalist Progress Note Date of Service Dec 27, 2017. Subjective Pt evaluation today including: conversation w/ patient, conversation w/ sediment remediation consultant (Cardiology) Voiding: no voiding problems Patient feeling very well, denies any lightheadedness, no chest pain or shortness of breath. She remains in atrial fibrillation but her rates are better controlled in the 70s-80s currently. She is usually quite independent and active. She is anxious for discharge to home but is agreeable to DC cardioversion in the morning if she does not spontaneously convert to sinus rhythm. All Other Systems: Reviewed and Negative Objective Vital Signs Date Time Temp Pulse Resp B/P (MAP) Pulse Ox O2 Delivery O2 Flow Rate FiO2 12/27/17 10:47 36.5 12/27/17 10:39 75 16 116/74 (88) 96 Room Air 12/27/17 08:00 Room Air 12/27/17 06:35 36.4 78 20 145/73 (97) 98 Room Air 12/27/17 04:08 36.8 96 20 126/71 (89) 93 Room Air 12/27/17 04:00 Room Air 12/27/17 02:00 110 12/27/17 00:00 Room Air 12/26/17 23:33 36.3 75 18 115/74 (88) 96 Room Air 12/26/17 22:27 86 117/66 (83) 12/26/17 20:48 36.5 91 18 174/97 95 Room Air 12/26/17 20:38 12/26/17 20:32 137/78 12/26/17 20:30 67 19 95 12/26/17 20:17 155/76 12/26/17 20:15 64 18 94 12/26/17 20:02 153/69 12/26/17 20:00 62 18 96 12/26/17 19:59 42 12/26/17 19:47 150/68 12/26/17 19:45 56 21 95 12/26/17 19:32 158/76 12/26/17 19:31 42 12/26/17 19:30 60 19 97 12/26/17 19:17 142/73 12/26/17 19:15 61 17 95 12/26/17 19:02 108/54 12/26/17 19:00 63 16 91 12/26/17 18:47 102/67 12/26/17 18:45 54 19 94 12/26/17 18:34 116/62 12/26/17 18:30 72 15 95 12/26/17 18:18 63 20 110/68 95 Room Air 12/26/17 18:06 68 20 120/73 95 Room Air 12/26/17 17:47 126 12/26/17 17:45 95 Room Air 12/26/17 17:45 95 Room Air 12/26/17 17:32 96 Room Air 12/26/17 17:30 37.0 105 20 139/80 96 Room Air Physical Exam General Appearance: WD/WN, no apparent distress, + obese Eyes: normal inspection, EOMI, sclerae normal ENT: hearing grossly normal Neck: trachea midline Respiratory/Chest: lungs clear, normal breath sounds, no respiratory distress, no accessory muscle use Cardiovascular: + systolic murmur, + irregularly irregular (With normal rate) Abdomen: normal bowel sounds, non tender, soft Extremities: no calf tenderness, + swelling (1+ pitting edema of the legs to the knees bilaterally) Neurologic/Psychiatric: no motor/sensory deficits, alert, normal mood/affect, oriented x 3 Skin: normal color, warm/dry, no rash Laboratory Results Last 24 Hours Test 12/26/17 17:45 12/27/17 09:21 White Blood Count 8.92 K/uL Red Blood Count 4.18 M/uL Hemoglobin 12.6 g/dL Hematocrit 38.4 % Mean Corpuscular Volume 91.9 fL Mean Corpuscular Hemoglobin 30.1 pg Mean Corpuscular Hemoglobin Concent 32.8 g/dl Platelet Count 292 K/uL Mean Platelet Volume 10.5 fL Neutrophils (%) (Auto) 62.1 % Lymphocytes (%) (Auto) 28.5 % Monocytes (%) (Auto) 7.0 % Eosinophils (%) (Auto) 1.6 % Basophils (%) (Auto) 0.6 % Neutrophils # (Auto) 5.55 K/uL Lymphocytes # (Auto) 2.54 K/uL Monocytes # (Auto) 0.62 K/uL Eosinophils # (Auto) 0.14 K/uL Basophils # (Auto) 0.05 K/uL RDW Standard Deviation 44.2 fL RDW Coefficient of Variation 13.3 % Immature Granulocyte % (Auto) 0.2 % Immature Granulocyte # (Auto) 0.02 K/uL Sodium Level 136 mmol/L 138 mmol/L Potassium Level 4.0 mmol/L 3.7 mmol/L Chloride Level 103 mmol/L 104 mmol/L Carbon Dioxide Level 23 mmol/L 25 mmol/L Anion Gap 10.0 mmol/L 9.0 mmol/L Blood Urea Nitrogen 19 mg/dl 15 mg/dl Creatinine 1.03 mg/dl 0.74 mg/dl Est Creatinine Clear Calc Drug Dose 40.5 ml/min 55.5 ml/min Estimated GFR () 57.0 85.0 Estimated GFR (Non- 49.2 73.4 BUN/Creatinine Ratio 18.5 19.7 Random Glucose 254 mg/dl 168 mg/dl Calcium Level 9.0 mg/dl 9.0 mg/dl Magnesium Level 1.9 mg/dl 1.9 mg/dl Troponin I < 0.015 ng/ml Assessment and Plan This patient is an 87yo female with history of PAF on anticoagulation with Xarelto presenting with palpitations who was found to have A. fib with RVR, HR of 126. 1. Paroxysmal atrial fibrillation with RVR -has occurred intermittently in the past and usually spontaneously converted to normal sinus rhythm. Her blood pressure remains stable. She is anticoagulated on Xarelto. Patient has had intolerance to Metoprolol in the past, severe fatigue. She had an episode of AF with RVR in 2014 for which she was treated with Cardizem resulting in bradycardia, hypotension and pauses > 3 seconds. She did have a prolonged pause noted on monitor in ER upon admission while on Cardizem drip and this was since discontinued. Troponin negative 1 Rates now controlled-she received 1 dose of Coreg last evening upon admission to replace her Bystolic which her family now brought from home -Continue Bystolic 20 mg daily -Give IV Lopressor 5 mg every 6 hours as needed heart rate greater than 120 -Monitor on telemetry -Continue Xarelto anticoagulation -Plan to DC cardiovert in the morning if does not spontaneously convert before that -Appreciate cardiology consultation 2. GERD - stable, chronic -Continue Pepcid 20mg po daily 3. Hyperlipidemia- stable, chronic -Continue Atorvastatin 10mg po daily 4. Hypertension- stable, chronic. BP presently 110/68 -Continue Dyazide -Continue Clonidine with holding parameters -Continue Candesartan and felodipine 5. DMII, not on home meds. Last Hgb A1c was 6.9% in 03/2017 -Accu-Cheks and sliding scale insulin -Check hemoglobin A1c 6. Clinically obese, BMI 40.0 -Needs counseling on weight loss DVT Prophylaxis-continue Xarelto Dispo -remain on telemetry likely discharge to home tomorrow Full code
[2017-12-27] MEDS: RIVAROXABAN 20 MG TAB PO SCH (17:02)
[2017-12-27] MEDS ORDERED: METOPROLOL TARTRATE 1 MG/ML VIAL IV PRN (18:15)
[2017-12-27] MEDS ORDERED: DEXTROSE 50% 50 ML SYR IV PRN (18:45)
[2017-12-27] MEDS ORDERED: CARBOHYDRATES FOR HYPOGLYCEMIA PO PRN (18:45)
[2017-12-27] MEDS ORDERED: GLUCAGON FOR INJ 1 MG VIAL SQ PRN (18:45)
[2017-12-27] MEDS ORDERED: GLUCOSE 10 TABS/TUBE PO PRN (18:45)
[2017-12-27] MEDS ORDERED: GLUCOSE 40% GEL 15 GM TUBE PO PRN (18:45)
[2017-12-27] MEDS: INSULIN ASPART 100 UNITS/ML 3 ML PEN SC SCH (20:44)
[2017-12-27] MEDS: ATORVASTATIN 10 MG TAB PO SCH (20:47)
[2017-12-28] VITALS (7 sets, daily range): BP systolic 89–145; BP diastolic 66–100; PULSE 18–130; TEMP 36.4–36.5; O2SAT 95–100
[2017-12-28 06:52] LABS: CALCIUM 9.3 mg/dl (8.5-10.1); CREATININE 0.8 mg/dl (0.60-1.20); POTASSIUM 4.1 mmol/L (3.5-5.1)
[2017-12-28] MEDS: INSULIN ASPART 100 UNITS/ML 3 ML PEN SC SCH ×3 (08:00→16:15)
[2017-12-28] MEDS: FLUTICASONE PROPIONATE NA SPR 16 GM BTL NAE SCH (08:26)
[2017-12-28] MEDS: NEBIVOLOL HCL 20 MG PO SCH (08:27)
[2017-12-28] MEDS: CANDESARTAN CILEXETIL 32 MG PO SCH (08:27)
[2017-12-28] MEDS: MAGNESIUM CHLORIDE 64MG DELAYED REL TAB PO SCH (08:28)
[2017-12-28] MEDS: CHOLECALCIFEROL 1000 INTER.UNIT TAB PO SCH (08:29)
[2017-12-28] MEDS: TRIAMTERENE/HCTZ 37.5/25MG CAP PO SCH (08:29)
[2017-12-28] MEDS: FAMOTIDINE 20 MG TAB PO SCH (08:29)
[2017-12-28] MEDS: FELODIPINE 5 MG TABCR PO SCH (08:30)
[2017-12-28] MEDS ORDERED: NURSING VERBAL MED ORDER ONE (09:45)
[2017-12-28] MEDS: ACETAMINOPHEN 325 MG TAB PO PRN (11:46)
--- NOTE | 2017-12-28 14:50 | [facility] Operative Report ---
Operative Report Date of Service Dec 28, 2017. Operative Report Procedure performed: Cardioversion Indication: Atrial fibrillation Staff rn neonatal: Zaki Molina MD Procedure in detail: The patient was informed of the risks benefits and alternatives to the intended procedure. He understood such which proceed. He was taken to the cardiac catheterization suite holding area. A general anesthetic was administered by the Anesthesiology Service. Once appropriately anesthetized, the patient was cardioverted using 360 joules delivered in a biphasic fashion. This returned the patient to sinus rhythm. The patient tolerated procedure well, there were no immediate complications. Patient was neurologically intact subsequent to the procedure. Impression: Successful cardioversion from atrial flutter to normal sinus rhythm I attest to the content of the Intraoperative Record and any orders documented therein. Any exceptions are noted below.
[2017-12-28] MEDS ORDERED: LIDOCAINE HCL 1% 20 ML VIAL ONE (14:55)
[2017-12-28] MEDS ORDERED: PROPOFOL IV EMULSION 10 MG/ML 20 ML VIAL ONE (14:56)
[2017-12-28] MEDS ORDERED: LIDOCAINE HCL 2% 2 ML VIAL (20MG/ML) ONE (14:56)
[2017-12-28] MEDS ORDERED: CLONIDINE HCL 0.1 MG TAB PO SCH (15:00)
--- NOTE | 2017-12-28 15:04 | Discharge Instructions ---
Discharge Instructions Date of Service Dec 28, 2017. Admission Reason for Admission: Rapid Atrial Fibrillation Discharge Discharge Diagnosis / Problem: Rapid atrial fibrillation Discharge Goals Goal(s): Improve disease control, Diagnostic testing, Therapeutic intervention Activity Recommendations Activity Limitations: resume your previous activity Exercise/Sports Limitations: none Shower/Bathe: no limitations . Instructions / Follow-Up Instructions / Follow-Up You were admitted with rapid atrial fibrillation and had an electrical cardioversion which returned you to a normal rhythm. Please continue all the same medications that you were on before. Please follow-up with your PCP and medical assistant per diem as scheduled for you. Current Hospital Diet Patient's current hospital diet: AHA Diet (Heart Healthy) Discharge Diet Recommended Diet: AHA Diet (Heart Healthy) Procedures Procedures Performed: DC electrocardioversion Chest x-ray Pending Studies Studies pending at discharge: no Laboratory Results Hemoglobin A1c Test 12/28/17 06:05 Range/Units Estimated Average Glucose 154 mg/dl Hemoglobin A1c 7.0 H 4.5-5.6 % Medical Emergencies . Who to Call and When: Medical Emergencies: If at any time you feel your situation is an emergency, please call 911 immediately. . Non-Emergent Contact Non-Emergency issues call your: Primary Care Provider, Log Grader Call Non-Emergent contact if: you have any medication questions You have a rapid heartbeat again, dizziness or lightheadedness. . . "Provider Documentation" section prepared by Fatou Navarrete. .
--- NOTE | 2017-12-28 15:05 | Anesthesiology Progress Note ---
Anesthesia Post Op Note Date & Time Dec 28, 2017 at 15:04 Vital Signs Pain Intensity: 0 Vital Signs Past 12 Hours Date Time Temp Pulse Resp B/P (MAP) Pulse Ox O2 Delivery O2 Flow Rate FiO2 12/28/17 14:56 57 16 108/65 (79) 96 Room Air 12/28/17 14:46 58 16 101/62 (75) 95 Room Air 12/28/17 14:36 56 16 125/67 (86) 99 Nasal Cannula 12/28/17 14:33 48 12 89/66 100 Nasal Cannula 4 12/28/17 14:28 130 16 131/100 100 4 12/28/17 11:10 36.4 70 18 116/71 (86) 97 Room Air 12/28/17 08:10 Room Air 12/28/17 07:20 36.4 76 18 102/71 (81) 95 Room Air 12/28/17 03:13 36.5 102 20 119/76 (90) 95 Room Air Notes Mental Status: alert / awake / arousable, participated in evaluation Pt Amnestic to Procedure: Yes Nausea / Vomiting: adequately controlled Pain: adequately controlled Airway Patency, RR, SpO2: stable & adequate BP & HR: stable & adequate Hydration State: stable & adequate Anesthetic Complications: no major complications apparent
--- NOTE | 2017-12-28 15:13 | Discharge Summary ---
Discharge Summary Date of Service Dec 28, 2017. Discharge Summary Admission Date: Dec 26, 2017 at 19:33 Discharge Date: Dec 28, 2017 Discharge Disposition: Home Principal Diagnosis: Rapid atrial fibrillation Problems/Secondary Diagnoses: PAF on anticoagulation with Xarelto History of bradycardia, hypotension and pauses > 3 seconds with diltiazem therapy Metoprolol intolerance GERD Hyperlipidemia Hypertension DMII, diet controlled Clinically obese, BMI 40.0 Immunizations: Have You Had Influenza Vaccine: N/A History of Tetanus Vaccine?: Yes History of Pneumococcal: Yes History of Hepatitis B Vaccine: No Procedures: DC cardioversion Chest x-ray Consultations: Cardiology Medication Reconciliation Continued Medications: Acetaminophen (Tylenol) 500 Mg Tab 1000 MG PO UD PRN for Pain or Fever, TAB TAKE PER PACKAGE DIRECTIONS Atorvastatin (Lipitor) 10 Mg Tab 10 MG PO QPM Candesartan Cilexetil (Candesartan Cilexetil) 32 Mg Tab 32 MG PO QAM Cholecalciferol (Vitamin D) 2,000 Unit Tab 2000 INTER.UNIT PO QAM Clonidine Hcl (Catapres) 0.1 Mg Tab 0.1 MG PO BID Famotidine (Pepcid) 20 Mg Tab 20 MG PO QAM Felodipine (Felodipine ER) 5 Mg Tabcr 5 MG PO BID Fluticasone Propionate (Fluticasone Propionate) 120 Sprays/6000 Mcg Inha 1 SPRAY VALERIE QAM Magnesium Chloride (Slow-Mag Tab) 64 Mg Tabcr 64 MG PO DAILY, TAB Nebivolol HCl (Bystolic) 20 Mg Tab 20 MG PO QAM Rivaroxaban (Xarelto) 20 Mg Tab 20 MG PO QPM Triamterene/Hctz (Dyazide 37.5MG/25MG) Cap 1 TAB PO QAM, CAP Discharge Exam Patient doing very well the day of discharge. She denies shortness of breath or chest pain. She had a DC cardioversion this morning which was successful. I discussed the case with cardiology. She is stable for discharge to home. Physical Exam General Appearance: WD/WN, no apparent distress, + obese Eyes: normal inspection, EOMI, sclerae normal ENT: hearing grossly normal Neck: trachea midline Respiratory/Chest: lungs clear, normal breath sounds, no respiratory distress, no accessory muscle use Cardiovascular: + systolic murmur, + irregularly irregular (With normal rate) Abdomen: normal bowel sounds, non tender, soft Extremities: no calf tenderness, + swelling (trace pitting edema of the legs to the knees bilaterally) Neurologic/Psychiatric: no motor/sensory deficits, alert, normal mood/affect, oriented x 3 Skin: normal color, warm/dry, no rash Review of Systems: Constitutional: No problem reported Eyes: No problem reported ENT: No problem reported Respiratory: No problem reported Cardiovascular: No problem reported Abdomen: No problem reported Musculoskeletal: No problem reported Genitourinary - Female: No problem reported Neurologic: No problem reported Psychiatric: No problem reported Endocrine: No problem reported Hematologic / Lymphatic: No problem reported Integumentary: No problem reported Hospital Course This patient is an 87yo female with history of PAF on anticoagulation with Xarelto presenting with palpitations who was found to have A. fib with RVR, HR of 126. 1. Paroxysmal atrial fibrillation with RVR -has occurred intermittently in the past and usually spontaneously converted to normal sinus rhythm. Her blood pressure remains stable. She is anticoagulated on Xarelto. Patient has had intolerance to Metoprolol in the past, severe fatigue. She had an episode of AF with RVR in 2014 for which she was treated with Cardizem resulting in bradycardia, hypotension and pauses > 3 seconds. She did have a prolonged pause noted on monitor in ER upon admission while on Cardizem drip and this was since discontinued. Troponin negative 1 Rates controlled here-she received 1 dose of Coreg on the evening of admission to replace her Bystolic which her family been brought from home She was electrically cardioverted on 12/28 successfully into a normal sinus rhythm. She is stable for discharged home on her current medications -Continue Bystolic 20 mg daily -Continue Xarelto anticoagulation -Appreciate cardiology consultation and should have follow-up in the office 2. GERD - stable, chronic -Continue Pepcid 20mg po daily 3. Hyperlipidemia- stable, chronic -Continue Atorvastatin 10mg po daily 4. Hypertension- stable, chronic. Controlled -Continue Dyazide -Continue Clonidine -Continue Candesartan and felodipine, Bystolic 5. DMII, not on home meds. His diet controlled. Last Hgb A1c was 6.9% in 2016 and is now 7.0% here -Follow up with PCP 6. Clinically obese, BMI 40.0 -Needs counseling on weight loss DVT Prophylaxis-continue Xarelto Stable for discharge to home Total Time Spent: Greater than 30 minutes This includes examination of the patient, discharge planning, medication reconciliation, and communication with other providers. Discharge Instructions Please refer to the electronic Patient Visit Report (Discharge Instructions) for additional information. Follow-Up With PCP and cardiology within 1-2 weeks as scheduled Additional Copies To Isiah Mojica M.D.; Zaki Calixto MD
== END 2017-12-28 16:53 | disposition home or self-care (01) | DRG 309 ==
LOC: C.EDB 17:22 → C.2T 19:33 → ENRESERV 19:53 → CANRESERV 19:53 → ENRESERV 19:56
PROVIDERS: ADMIT Internal Medicine; ATTEND Family Medicine
PROC: 5A2204Z Restoration of Cardiac Rhythm, Single (ICD-10-PCS; principal; 2017-12-28 12:45)
DX: I48.91 Unspecified atrial fibrillation (principal); Z68.41 Body mass index [BMI] 40.0-44.9, adult; Z79.01 Long term (current) use of anticoagulants; Z82.49 Family history of ischemic heart disease and other diseases of the circulatory system; Z88.3 Allergy status to other anti-infective agents; Z88.8 Allergy status to other drugs, medicaments and biological substances; Z88.5 Allergy status to narcotic agent; Z88.1 Allergy status to other antibiotic agents; K21.9 Gastro-esophageal reflux disease without esophagitis; I10 Essential (primary) hypertension; E78.5 Hyperlipidemia, unspecified; E66.9 Obesity, unspecified; E11.9 Type 2 diabetes mellitus without complications; T44.7X5A Adverse effect of beta-adrenoreceptor antagonists, initial encounter

== ENCOUNTER 2020-02-24 20:27 | Inpatient (IN) ==
[2020-02-24] MEDS ORDERED: METOPROLOL TARTRATE 1 MG/ML VIAL IV STA (20:55)
[2020-02-24 21:07] LABS: Basophils # (auto) 0.06 K/uL (0-0.2); Basophils % (auto) 0.9 %; Hemoglobin 8.9 g/dL (12.0-16.0); Immature Granulocytes # (auto) 0.01 K/uL (0.00-0.02); Immature Granulocytes % (auto) 0.1 %; Lymphocytes # (auto) 1.75 K/uL (1.2-3.4); Lymphocytes % (auto) 26.2 %; Mean Corpuscular Hemoglobin 26.3 pg (25-34); Mean Corpuscular Hgb Conc 30.7 g/dL (32-36); Mean Corpuscular Volume 85.5 fL (80-100); Mean Platelet Volume 9.6 fL (7.4-10.4); Monocytes # (auto) 0.65 K/uL (0.11-0.59); Monocytes % (auto) 9.7 %; Neutrophils # (auto) 4.02 K/uL (1.4-6.5); Neutrophils % (auto) 60.1 %; Platelet Count 335 K/uL (130-400); RDW Coefficient of Variation 14.2 % (11.5-14.5); RDW Standard Deviation 44.3 fL (36.4-46.3); Red Blood Count 3.39 M/uL (4.2-5.4); White Blood Count 6.69 K/uL (4.8-10.8)
[2020-02-24 21:14] LABS: INR 1.5 (0.9-1.1); Prothrombin Time 15.4 Seconds (9.0-12.0)
[2020-02-24 21:22] LABS: Alanine Aminotransferase 20 U/L (12-78); Albumin Level 3.5 gm/dl (3.4-5.0); Aspartate Aminotransferase 16 U/L (15-37); BUN Creatinine Ratio 24.1 (10-20); Blood Urea Nitrogen 28 mg/dl (7-18); Carbon Dioxide 28 mmol/L (21-32); Chloride 105 mmol/L (98-107); Creatinine Clr Calc Pharmacy 33.2 ml/min; Est GFR (African American) 48.2; Est GFR (Non-African American) 41.6; Glucose 167 mg/dl (70-99); Magnesium 2.1 mg/dl (1.8-2.4); Potassium 4.1 mmol/L (3.5-5.1); Sodium 139 mmol/L (136-145)
[2020-02-24 21:33] LABS: Albumin Globulin Ratio 1.1 (0.9-2); Alkaline Phosphatase 55 U/L (45-117); Bilirubin,Total 0.4 mg/dl (0.2-1); Globulin 3.3 gm/dl (2.5-4.0); NT Pro B Type Natriuretic Pept 2187 pg/ml (0-1800); Total Protein 6.8 gm/dl (6.4-8.2); Troponin I < 0.015 ng/ml (0-0.045)
[2020-02-24] MEDS ORDERED: FUROSEMIDE 40 MG/4 ML VIAL IV STA (22:39)
--- NOTE | 2020-02-24 23:52 | History & Physical Report ---
Date of Service February 24, 2020 Assessment & Plan (1) Atrial fibrillation with rapid ventricular response: Atrial fibrillation with rapid ventricular response/acute CHF/sick sinus syndrome/hypertension- The patient will be admitted to telemetry for serial cardiac enzymes, serial EKG's, cardiac rhythm monitoring and a 2-D echocardiogram with Dopplers. Hold felodipine 5 mg p.o. twice daily due to to need to increase negative inotropes, and should help prevent her lower extremity edema Increase clonidine from 0.1 mg p.o. twice daily to 0.2 mg p.o. twice daily. Hold triamterene/HCTZ, since patient got IV Lasix in the ED. Continue nebivolol 20 mg every morning. For now, hold candesartan 32 mg p.o. daily. Consult cardiology, she has been seen by Dr. Molina in the past Present on Admission?: Yes (2) CHF (congestive heart failure): See above Present on Admission?: Yes (3) Anemia: Hemoglobin has gradually decreased over the past year, and is now 8.9 upon admission. Hemoccult test stools. Follow serial laboratories Present on Admission?: Yes (4) Type 2 diabetes mellitus: Glucose upon admission 167. On no listed medications at this time. Check hemoglobin A1c If blood sugar is elevated in a.m. or increased A1c, will add Accu-Cheks before meals and at bedtime with NovoLog coverage per scale Present on Admission?: Yes (5) Sick sinus syndrome: See above Present on Admission?: Yes (6) Hypertension: See above Present on Admission?: Yes (7) Gastroesophageal reflux disease: On famotidine 20 mg p.o. every morning, and will increase to twice daily Present on Admission?: Yes (8) Dyslipidemia: Present on Admission?: Yes History of Present Illness Chief Complaint: The patient presented to the emergency department due to recurrence of rapid heartbeat, with her known history of paroxysmal atrial fibrillation Primary Care Provider: Giana Downey MD The patient is an 89-year-old female with a past medical history including diabetes mellitus type 2, sick sinus syndrome, paroxysmal atrial fibrillation, osteoarthritis, obesity, hypertension, GERD, dyslipidemia, DCIS, chronic anticoagulation, carpal tunnel syndrome, PVCs, history of mastectomy, history of hysterectomy and status post total knee replacement. The patient presented to the emergency department due to palpitations, and was found to be in atrial fibrillation with RVR in the ED. She was given 2.5 mg of metoprolol IV per the ED, with some improvement in rate control. She was also feeling short of breath, which she reports that in the past has been associated with her atrial fibrillation. She was found to have a BNP of 2187, and ED prescribed Lasix 40 mg IV x1. Allergies Allergy/AdvReac Type Severity Reaction Status Date / Time phenobarbital Allergy Intermediate HIVES Verified 02/24/20 21:08 amlodipine Allergy Unknown Unknown Verified 02/24/20 21:08 benazepril Allergy Unknown Unknown Verified 02/24/20 21:08 enalapril Allergy Unknown Unknown Verified 02/24/20 21:08 lisinopril Allergy Unknown Unknown Verified 02/24/20 21:08 simvastatin Allergy Unknown Unknown Verified 02/24/20 21:08 spironolactone Allergy Unknown Unknown Verified 02/24/20 21:08 codeine AdvReac Mild HEADACHE,NAUSEA Verified 02/24/20 21:08 AND VOMITING hydrocodone AdvReac Mild EXTENDED Verified 02/24/20 21:08 NAUSEA AND VOMITING tramadol AdvReac Mild NAUSEA Verified 02/24/20 21:08 Cipro AdvReac Unknown DIZZY Verified 12/26/17 17:29 ciprofloxacin AdvReac Unknown DIZZY Verified 02/01/20 14:16 metoprolol AdvReac Unknown DIZZY,DEPRE Verified 02/01/20 14:16 SSED Home Medications Home Medications Medication Instructions Recorded Confirmed Type cholecalciferol (vitamin D3) 2,000 unit PO QAM 03/28/18 02/24/20 History [Vitamin D3] famotidine 20 mg PO QAM 03/28/18 02/24/20 History magnesium chloride [Mag 64] 64 mg PO QAM 03/28/18 02/24/20 History biotin 5 mg capsule 5 mg PO QAM cap 05/29/19 02/24/20 History candesartan 32 mg PO QAM 12/23/19 02/24/20 History felodipine 5 mg PO BID 12/23/19 02/24/20 History fluticasone propionate [Flonase 2 sprays INTRANASAL DAILY PRN 12/23/19 02/24/20 History Allergy Relief] triamterene-hydrochlorothiazid 1 cap PO QAM 12/23/19 02/24/20 History diclofenac sodium 1 % gel topical 2 g TOPICAL QID 12/31/19 02/24/20 History kit atorvastatin 10 mg PO HS 02/01/20 02/24/20 History clonidine HCl 0.1 mg tablet 0.1 mg PO BID #180 tab 02/19/20 02/24/20 Rx nebivolol 20 mg tablet 20 mg PO QAM #30 tab 02/19/20 02/24/20 Rx rivaroxaban 20 mg tablet 20 mg PO HS #90 tab 02/20/20 02/24/20 Rx Past Med/Surg History Medical History (Updated 02/25/20 @ 01:04 by Alonzo Beal MD) Atrial fibrillation Breast cancer (02/08/17) "Status post right breast infiltrating ductal carcinoma in 1995 Status post conservative breast surgery followed by radiation therapy Status post right breast lumpectomy 11/23/2010 Infiltrating ductal carcinoma, grade 3 Estrogen receptor positive, progesterone receptor positive HER-2/donnell negative Stereotactic breast biopsies bilateral 11/20/2014 Right showing DCIS and left ductal hyperplasia Stereotactic biopsy bilateral breasts 04/30/2015 right showing DCIS left ductal hyperplasia 05/30/2015 right breast mastectomy and sentinel lymph node biopsy Invasive ductal carcinoma Stage pT1a pN0 Left breast ultrasound-guided biopsy 02/08/2017 Infiltrating carcinoma grade 1 Estrogen receptor positive, progesterone receptor positive and HER-2/donnell negative Status post lumpectomy and sentinel lymph node biopsy 04/13/2017 Invasive ductal carcinoma, grade 2 Stage pT1c pN0 Oncotype DX score of 12" On 05/03/17 11:38 Osiris Lazo wrote "Status post right breast infiltrating ductal carcinoma in 1995 Status post conservative breast surgery followed by radiation therapy Status post right breast lumpectomy 11/23/2010 Infiltrating ductal carcinoma, grade 3 Estrogen receptor positive, progesterone receptor positive HER-2/donnell negative Stereotactic breast biopsies bilateral 11/20/2014 Right showing DCIS and left ductal hyperplasia Stereotactic biopsy bilateral breasts 04/30/2015 right showing DCIS left duct al hyperplasia 05/30/2015 right breast mastectomy and sentinel lymph node biopsy Invasive ductal carcinoma Stage pT1a pN0 Left breast ultrasound-guided biopsy 02/08/2017 Infiltrating carcinoma grade 1 Estrogen receptor positive, progesterone receptor positive and HER-2/donnell negative Status post lumpectomy and sentinel lymph node biopsy 04/13/2017 Invasive ductal carcinoma, grade 2 Stage pT1c pN0" Carpal tunnel syndrome Chronic anticoagulation DCIS (ductal carcinoma in situ) Dyslipidemia Gastroesophageal reflux disease Hypertension Obesity, Class II, BMI 35-39.9 Osteoarthritis Paroxysmal atrial fibrillation Sick sinus syndrome Type 2 diabetes mellitus Surgical History H/O mastectomy H/O: hysterectomy S/P total knee replacement Family History Unknown Hypertension Diabetes Sister Malignant melanoma of skin Breast cancer Grandmother Breast cancer Family/Other Melanoma Diabetes Cancer Parkinson's disease Mother Stroke Other Family history non-contributory Denies family history of Ovarian cancer Prostate cancer Myocardial infarction Colorectal cancer Social History Smoking Status: Never smoker Second Hand Exposure: No; Hx Alcohol Use: Yes Alcohol type: wine Hx Substance Use: No Preferred Language: [place] Communication Ability: Effective Bus Monitor Required: No Beliefs That Will Affect Care: None marital status: Current Living Situation: Spouse current occupational status: retired Feels Safe at Home: Yes Safety Concerns: Feels Safe At This Time caffeine: No Dental Care, Regularly: Yes Physical Activity Frequency: Does not Exercise Seatbelt Use: always Sunscreen Use: Yes (Sometimes) Assistive Devices: Cane and Glasses Review of Systems Review of Systems: The patient denies cough, lower extremity swelling, sore throat, fevers, chills, sweats, nausea, vomiting, diarrhea , constipation, abdominal pain, pelvic pain, blood in urine or stool, dysuria, urinary frequency or urgency, lightheadedness, dizziness, headache, memory loss, loss of consciousness, rash, abnormal bruising or bleeding, imbalance, focal or generalized weakness, numbness or tingling in arms or legs, generalized arthralgias or myalgias, back or neck pain, or night sweats. The review of systems is otherwise negative other than for that already noted above, and at least 10 systems have been reviewed. Physical Exam 2 Physical Exam: The patient is awake, alert and oriented 3, well developed and well nourished, normocephalic and atraumatic, lying in bed and in no acute distr ess. HEENT--PERRL, EOMI, mucous membranes and oropharynx normal. Neck--supple. No JVD. No bruits. Thyroid normal, trachea midline, no adenopathy. Heart--normal S1 and S2. No murmurs, rubs or gallops. Lungs--few crackles at the bases bilaterally. No respiratory distress, no accessory muscle use. Abdomen--normal bowel sounds and soft. Nontender. Nondistended. Extremities--no cyanosis or clubbing. 2+ bilateral pretibial pitting edema. Dermatologic--normal skin turgor, normal color, no abnormal lymph nodes, no rash. Neurologic--cranial nerves II through XII grossly intact. Rheumatologic--normal range of motion. Psychiatric--normal affect. Results & Data Results & Data ([facility]) Vital Signs (Past 12 Hours) Vital Signs Temp Pulse Resp BP Pulse Ox 02/24/20 23:00 111 H 17 129/80 97 02/24/20 22:30 115 H 14 121/91 96 02/24/20 22:20 96 H 18 97 02/24/20 22:10 83 20 96 02/24/20 22:01 99 H 18 121/62 97 02/24/20 22:00 87 16 96 02/24/20 21:50 95 H 20 96 02/24/20 21:40 73 16 97 02/24/20 21:30 82 22 121/84 97 02/24/20 21:21 92 H 25 H 122/65 97 02/24/20 21:20 89 23 97 02/24/20 21:10 106 H 24 98 02/24/20 21:00 99 H 17 91 02/24/20 20:50 93 H 26 H 02/24/20 20:46 93 H 22 02/24/20 20:29 97.9 F 124 H 22 126/73 98 Laboratory Results Laboratory Results WBC 6.69 K/uL (4.8-10.8) 02/24/20 20:56 RBC 3.39 M/uL (4.2-5.4) L 02/24/20 20:56 Hgb 8.9 g/dL (12.0-16.0) L 02/24/20 20:56 Hct 29.0 % (37-47) L 02/24/20 20:56 MCV 85.5 fL (80-100) 02/24/20 20:56 MCH 26.3 pg (25-34) 02/24/20 20:56 MCHC 30.7 g/dL (32-36) L 02/24/20 20:56 RDW Std Deviation 44.3 fL (36.4-46.3) 02/24/20 20:56 RDW Coeff of Paco 14.2 % (11.5-14.5) 02/24/20 20:56 Plt Count 335 K/uL (130-400) 02/24/20 20:56 MPV 9.6 fL (7.4-10.4) 02/24/20 20:56 Immature Gran % (Auto) 0.1 % 02/24/20 20:56 Neut % (Auto) 60.1 % 02/24/20 20:56 Lymph % (Auto) 26.2 % 02/24/20 20:56 [place] % (Auto) 9.7 % 02/24/20 20:56 Eos % (Auto) 3.0 % 02/24/20 20:56 Baso % (Auto) 0.9 % 02/24/20 20:56 Neut # (Auto) 4.02 K/uL (1.4-6.5) 02/24/20 20:56 Lymph # (Auto) 1.75 K/uL (1.2-3.4) 02/24/20 20:56 [place] # (Auto) 0.65 K/uL (0.11-0.59) H 02/24/20 20:56 Eos # (Auto) 0.20 K/uL (0-0.5) 02/24/20 20:56 Baso # (Auto) 0.06 K/uL (0-0.2) 02/24/20 20:56 Immature Gran # (Auto) 0.01 K/uL (0.00-0.02) 02/24/20 20:56 PT 15.4 Seconds (9.0-12.0) H 02/24/20 20:56 INR 1.5 (0.9-1.1) H 02/24/20 20:56 Sodium 139 mmol/L (136-145) 02/24/20 20:56 Potassium 4.1 mmol/L (3.5-5.1) 02/24/20 20:56 Chloride 105 mmol/L (98-107) 02/24/20 20:56 Carbon Dioxide 28 mmol/L (21-32) 02/24/20 20:56 Anion Gap 5.0 (3-11) 02/24/20 20:56 BUN 28 mg/dl (7-18) H 02/24/20 20:56 Creatinine 1.17 mg/dl (0.6-1.2) 02/24/20 20:56 Est Cr Clr Drug Dosing 33.2 ml/min 02/24/20 20:56 Est GFR ( Amer) 48.2 02/24/20 20:56 Est GFR (Non-Af Amer) 41.6 02/24/20 20:56 BUN/Creatinine Ratio 24.1 (10-20) H 02/24/20 20:56 Glucose 167 mg/dl (70-99) H 02/24/20 20:56 Calcium 10.0 mg/dl (8.5-10.1) 02/24/20 20:56 Magnesium 2.1 mg/dl (1.8-2.4) 02/24/20 20:56 Total Bilirubin 0.4 mg/dl (0.2-1) 02/24/20 20:56 AST 16 U/L (15-37) 02/24/20 20:56 ALT 20 U/L (12-78) 02/24/20 20:56 Alkaline Phosphatase 55 U/L (45-117) 02/24/20 20:56 Troponin I < 0.015 ng/ml (0-0.045) 02/24/20 20:56 NT-Pro-B Natriuret Pep 2187 pg/ml (0-1800) H 02/24/20 20:56 Total Protein 6.8 gm/dl (6.4-8.2) 02/24/20 20:56 Albumin 3.5 gm/dl (3.4-5.0) 02/24/20 20:56 Globulin 3.3 gm/dl (2.5-4.0) 02/24/20 20:56 Albumin/Globulin Ratio 1.1 (0.9-2) 02/24/20 20:56 TSH 1.700 uIu/ml (0.300-4.500) 02/24/20 20:56 Code Status & VTE Plan Code Status Full code VTE Prophylaxis Plan VTE Prophylaxis will be ordered: Yes PG Care Time/CCT Total # of Minutes Spent Total Time Spent with Patient: Total time spent is greater than 50% in coordination of care (as documented) at patient's floor/unit and/or counseling patient: Coding Level of Care Code 28538 Initial Inpt Care Lvl 3 Diagnoses Atrial fibrillation with rapid ventricular response I48.91 CHF (congestive heart failure) I50.9 Anemia D64.9 Type 2 diabetes mellitus E11.9 Sick sinus syndrome I49.5 Hypertension I10 Gastroesophageal reflux disease K21.9 Dyslipidemia E78.5
[2020-02-24] MEDS ORDERED: cloNIDine HCL 0.1 MG TAB PO STA (23:56)
[2020-02-25] MEDS ORDERED: MAGNESIUM SULFATE / D5W 1 GM/100 ML BAG IV STA (00:31)
--- NOTE | 2020-02-25 01:07 | Emergency Department Note ---
Impression & Plan Atrial fibrillation with rapid ventricular response, CHF (congestive heart failure), Anemia ED Provider Note INFORMANT: Patient ED PROVIDER(S): Alonzo Beal MD CHIEF COMPLAINT: Rapid heart rate PLAN: Disposition: Admitted Condition: Good MEDICAL DECISION MAKING: Patient presented because of her heartbeat. She was in rapid atrial fibrillation. She was given 2.5 mg of IV metoprolol. This did help with rate control. The patient was feeling short of breath. Chest imaging shows some mild CHF but no significant infiltrates or other pathology. She had an unremarkable CBC except for her baseline anemia. Chemistry panel was negative. Her troponin was negative. BNP is significantly elevated compared to prior c oncerning for CHF. She was given IV Lasix 40 mg. Given the rapid A. fib and what appears to be a component of new onset CHF she would benefit with more treatment in the hospital. The patient was in agreement. Consultation was made with the [facility] service, Dr. Milan Lucio. The patient was admitted for further management. Triage Nursing notes reviewed and agree them. Vital Signs: reviewed and remarkable for tachycardia. Differential diagnosis: Premature contractions, electrolyte abnormality, cardiac dysrhythmia, thyroid dysfunction, pulmonary embolism, infection, gastrointestinal, as well as other pathologies. Diagnostics interpreted by me: ECG: Twelve-lead ECG reveals atrial fibrillation with rapid ventricular response at 103 bpm. There is no ST elevation or depression. No PACs or PVCs. Normal QRS and axis. Cardiac Monitoring: Cardiac monitoring ordered by me: The patient was placed on continuous cardiac monitoring and observed. It revealed atrial fibrillation at 124 bpm. Imaging studies: Chest x-ray reveals mild cardiomegaly and CHF. Consultation(s): Dr. Milan Lucio of the [facility] service HPI: The patient is a 89 year old female who presents to the Emergency Room with complaints of rapid heartbeat. This started early this morning and is persisting. She has a history of atrial fibrillation and feels that this is similar. She notes heart rates over 120 at home.. The patient also notes the following associated symptoms, shortness of breath. The patient has taken all of her normal medications for relieving factors. Current pain is rated as 0/10. Patient states that she has had paroxysmal A. fib before. She had intolerance to long-term use of metoprolol but has had no problems with when hospitalized. The patient states she has not had shortness of breath like this with her prior episodes of rapid A. fib. Pt denies LOC, headache, fevers, chills, diaphoresis, visual changes, neck pain, chest pain, nausea, vomiting, abdominal pain, back pain, melena, hematochezia, urinary symptoms, numbness, weakness, lymphadenopathy, rash, or other complaints. ROS: See above HPI for pertinent positives & negatives. A total of 10 systems reviewed and were otherwise negative. PAST MEDICAL HISTORY:See Below, atrial fibrillation, sick sinus syndrome, diabetes, hypertension PAST SURGICAL HISTORY:See Below, history FAMILY HISTORY:See Below SOCIAL HISTORY:See Below, retired HOME MEDICATIONS:See Below ALLERGIES:See Below VITALS:See Below PHYSICAL EXAMINATION: GENERAL: Awake, alert, well-appearing, in no distress HENT: Normocephalic, atraumatic. Oropharynx unremarkable. EYES: Normal conjunctiva. Sclera non-icteric. NECK: Inspection normal. Non-tender. Supple. No nuchal rigidity. FROM. No masses. RESPIRATORY: Clear to auscultation. No wheezes. No rales. Normal respiratory effort. CARDIAC: Tachycardic rate. Irregular rhythm. No murmurs. No rubs. Extremities warm and well perfused. Pulses equal. No JVD. GI: Soft, non-distended. No tenderness to palpation. No rebound or guarding. No masses. RECTAL: Deferred. MUSCULOSKELETAL: Atraumatic. Chest examination reveals no tenderness. The back is symmetrical on inspection without obvious abnormality. There is no CVA tenderness to palpation. No joint edema. LOWER EXTREMITIES: Calves non-tender. 1+ on the left and 2+ on the right edema which patient states is normal for her.. No discoloration. NEURO: Normal sensorium. No sensory or motor deficits noted. SKIN: No rash or jaundice noted. Critical care: None Alonzo Beal MD Past Med/Surg History Medical History (Updated 02/25/20 @ 01:04 by Alonzo Beal MD) Atrial fibrillation Breast cancer (02/08/17) "Status post right breast infiltrating ductal carcinoma in 1995 Status post conservative breast surgery followed by radiation therapy Status post right breast lumpectomy 11/23/2010 Infiltrating ductal carcinoma, grade 3 Estrogen receptor positive, progesterone receptor positive HER-2/donnell negative Stereotactic breast biopsies bilateral 11/20/2014 Right showing DCIS and left ductal hyperplasia Stereotactic biopsy bilateral breasts 04/30/2015 right showing DCIS left ductal hyperplasia 05/30/2015 right breast mastectomy and sentinel lymph node biopsy Invasive ductal carcinoma Stage pT1a pN0 Left breast ultrasound-guided biopsy 02/08/2017 Infiltrating carcinoma grade 1 Estrogen receptor positive, progesterone receptor positive and HER-2/donnell negative Status post lumpectomy and sentinel lymph node biopsy 04/13/2017 Invasive ductal carcinoma, grade 2 Stage pT1c pN0 Oncotype DX score of 12" On 05/03/17 11:38 Osiris Lazo wrote "Status post right breast infiltrating ductal carcinoma in 1995 Status post conservative breast surgery followed by radiation therapy Status post right breast lumpectomy 11/23/2010 Infiltrating ductal carcinoma, grade 3 Estrogen receptor positive, progesterone receptor positive HER-2/donnell negative Stereotactic breast biopsies bilateral 11/20/2014 Right showing DCIS and left ductal hyperplasia Stereotactic biopsy bilateral breasts 04/30/2015 right showing DCIS left duct al hyperplasia 05/30/2015 right breast mastectomy and sentinel lymph node biopsy Invasive ductal carcinoma Stage pT1a pN0 Left breast ultrasound-guided biopsy 02/08/2017 Infiltrating carcinoma grade 1 Estrogen receptor positive, progesterone receptor positive and HER-2/donnell negative Status post lumpectomy and sentinel lymph node biopsy 04/13/2017 Invasive ductal carcinoma, grade 2 Stage pT1c pN0" Carpal tunnel syndrome Chronic anticoagulation DCIS (ductal carcinoma in situ) Dyslipidemia Gastroesophageal reflux disease Hypertension Obesity, Class II, BMI 35-39.9 Osteoarthritis Paroxysmal atrial fibrillation Sick sinus syndrome Type 2 diabetes mellitus Surgical History H/O mastectomy H/O: hysterectomy S/P total knee replacement Family History Unknown Hypertension Diabetes Sister Malignant melanoma of skin Breast cancer Grandmother Breast cancer Family/Other Melanoma Diabetes Cancer Parkinson's disease Mother Stroke Other Family history non-contributory Denies family history of Ovarian cancer Prostate cancer Myocardial infarction Colorectal cancer Social History Smoking Status: Never smoker Second Hand Exposure: No; Hx Alcohol Use: Yes Alcohol type: wine Hx Substance Use: No Preferred Language: Grenadian marital status: Current Living Situation: Spouse current occupational status: retired Feels Safe at Home: Yes caffeine: No Dental Care, Regularly: Yes Physical Activity Frequency: Does not Exercise Seatbelt Use: always Sunscreen Use: Yes (Sometimes) Allergies Allergies Allergy/AdvReac Type Severity Reaction Status Date / Time phenobarbital Allergy Intermediate HIVES Verified 02/24/20 21:08 amlodipine Allergy Unknown Unknown Verified 02/24/20 21:08 benazepril Allergy Unknown Unknown Verified 02/24/20 21:08 enalapril Allergy Unknown Unknown Verified 02/24/20 21:08 lisinopril Allergy Unknown Unknown Verified 02/24/20 21:08 simvastatin Allergy Unknown Unknown Verified 02/24/20 21:08 spironolactone Allergy Unknown Unknown Verified 02/24/20 21:08 codeine AdvReac Mild HEADACHE,NAUSEA Verified 02/24/20 21:08 AND VOMITING hydrocodone AdvReac Mild EXTENDED Verified 02/24/20 21:08 NAUSEA AND VOMITING tramadol AdvReac Mild NAUSEA Verified 02/24/20 21:08 Cipro AdvReac Unknown DIZZY Verified 12/26/17 17:29 ciprofloxacin AdvReac Unknown DIZZY Verified 02/01/20 14:16 metoprolol AdvReac Unknown DIZZY,DEPRE Verified 02/01/20 14:16 SSED Home Meds Home Medications Medication Instructions Recorded Confirmed cholecalciferol (vitamin D3) 2,000 unit PO QAM 03/28/18 02/24/20 [Vitamin D3] famotidine 20 mg PO QAM 03/28/18 02/24/20 magnesium chloride [Mag 64] 64 mg PO QAM 03/28/18 02/24/20 biotin 5 mg capsule 5 mg PO QAM cap 05/29/19 02/24/20 candesartan 32 mg PO QAM 12/23/19 02/24/20 felodipine 5 mg PO BID 12/23/19 02/24/20 fluticasone propionate [Flonase 2 sprays INTRANASAL DAILY PRN 12/23/19 02/24/20 Allergy Relief] triamterene-hydrochlorothiazid 1 cap PO QAM 12/23/19 02/24/20 diclofenac sodium 1 % gel topical 2 g TOPICAL QID 12/31/19 02/24/20 kit atorvastatin 10 mg PO HS 02/01/20 02/24/20 Previous Rx's Medication Instructions Recorded clonidine HCl 0.1 mg tablet 0.1 mg PO BID #180 tab 02/19/20 nebivolol 20 mg tablet 20 mg PO QAM #30 tab 02/19/20 rivaroxaban 20 mg tablet 20 mg PO HS #90 tab 02/20/20 Results & Data (ED) Vital Signs Vital Signs - 24 hr 02/24/20 20:29 02/24/20 20:46 02/24/20 20:50 Temperature 36.6 C Temperature Source Oral Pulse Rate 124 H 93 H 93 H Pulse Rate from SpO2 Sensor Pulse Rhythm Regular Pulse Strength Normal Respiratory Rate 22 22 26 H Respiratory Effort / Characteristics Non-Labored Spontaneous Respiratory Depth Normal Respiratory Pattern Regular Blood Pressure 126/73 Blood Pressure Mean 90 Blood Pressure Position Sitting Pulse Oximetry 98 Oxygen Delivery Method Room Air Room Air Room Air Sepsis Recent Fever Within 48 Hours No Sepsis New/Unexplained Change in Mental Status N/A Sepsis Action Taken by Nursing No Action Required 02/24/20 21:00 02/24/20 21:01 02/24/20 21:02 Temperature Temperature Source Pulse Rate 99 H Pulse Rate from SpO2 Sensor 109 H Pulse Rhythm Pulse Strength Respiratory Rate 17 Respiratory Effort / Characteristics Respiratory Depth Respiratory Pattern Blood Pressure Blood Pressure Mean Blood Pressure Position Pulse Oximetry 91 Oxygen Delivery Method Room Air Room Air Room Air Sepsis Recent Fever Within 48 Hours Sepsis New/Unexplained Change in Mental Status Sepsis Action Taken by Nursing 02/24/20 21:10 02/24/20 21:20 02/24/20 21:21 Temperature Temperature Source Pulse Rate 106 H 89 92 H Pulse Rate from SpO2 Sensor 102 H 87 89 Pulse Rhythm Pulse Strength Respiratory Rate 24 23 25 H Respiratory Effort / Characteristics Respiratory Depth Respiratory Pattern Blood Pressure 122/65 Blood Pressure Mean 91 Blood Pressure Position Pulse Oximetry 98 97 97 Oxygen Delivery Method Room Air Room Air Room Air Sepsis Recent Fever Within 48 Hours Sepsis New/Unexplained Change in Mental Status Sepsis Action Taken by Nursing 02/24/20 21:30 02/24/20 21:40 02/24/20 21:50 Temperature Temperature Source Pulse Rate 82 73 95 H Pulse Rate from SpO2 Sensor 84 81 83 Pulse Rhythm Pulse Strength Respiratory Rate 22 16 20 Respiratory Effort / Characteristics Respiratory Depth Respiratory Pattern Blood Pressure 121/84 Blood Pressure Mean 92 Blood Pressure Position Pulse Oximetry 97 97 96 Oxygen Delivery Method Room Air Room Air Room Air Sepsis Recent Fever Within 48 Hours Sepsis New/Unexplained Change in Mental Status Sepsis Action Taken by Nursing 02/24/20 22:00 02/24/20 22:01 02/24/20 22:10 Temperature Temperature Source Pulse Rate 87 99 H 83 Pulse Rate from SpO2 Sensor 92 H 98 H 89 Pulse Rhythm Pulse Strength Respiratory Rate 16 18 20 Respiratory Effort / Characteristics Respiratory Depth Respiratory Pattern Blood Pressure 121/62 Blood Pressure Mean 80 Blood Pressure Position Pulse Oximetry 96 97 96 Oxygen Delivery Method Room Air Room Air Room Air Sepsis Recent Fever Within 48 Hours Sepsis New/Unexplained Change in Mental Status Sepsis Action Taken by Nursing 02/24/20 22:20 02/24/20 22:30 02/24/20 23:00 Temperature Temperature Source Pulse Rate 96 H 115 H 111 H Pulse Rate from SpO2 Sensor 105 H 106 H 122 H Pulse Rhythm Pulse Strength Respiratory Rate 18 14 17 Respiratory Effort / Characteristics Respiratory Depth Respiratory Pattern Blood Pressure 121/91 129/80 Blood Pressure Mean 102 95 Blood Pressure Position Pulse Oximetry 97 96 97 Oxygen Delivery Method Room Air Room Air Room Air Sepsis Recent Fever Within 48 Hours Sepsis New/Unexplained Change in Mental Status Sepsis Action Taken by Nursing Laboratory Data Result diagrams: 02/24/20 20:56 02/24/20 20:56 Lab Results 02/24/20 02/24/20 02/24/20 Range/Units 20:56 20:56 20:56 WBC 6.69 (4.8-10.8) K/uL RBC 3.39 L (4.2-5.4) M/uL Hgb 8.9 L (12.0-16.0) g/dL Hct 29.0 L (37-47) % MCV 85.5 (80-100) fL MCH 26.3 (25-34) pg MCHC 30.7 L (32-36) g/dL RDW Std Deviation 44.3 (36.4-46.3) fL RDW Coeff of Paco 14.2 (11.5-14.5) % Plt Count 335 (130-400) K/uL MPV 9.6 (7.4-10.4) fL Immature Gran % (Auto) 0.1 % Neut % (Auto) 60.1 % Lymph % (Auto) 26.2 % Overton % (Auto) 9.7 % Eos % (Auto) 3.0 % Baso % (Auto) 0.9 % Neut # (Auto) 4.02 (1.4-6.5) K/uL Lymph # (Auto) 1.75 (1.2-3.4) K/uL Overton # (Auto) 0.65 H (0.11-0.59) K/uL Eos # (Auto) 0.20 (0-0.5) K/uL Baso # (Auto) 0.06 (0-0.2) K/uL Immature Gran # (Auto) 0.01 (0.00-0.02) K/uL PT 15.4 H (9.0-12.0) Seconds INR 1.5 H (0.9-1.1) Sodium 139 (136-145) mmol/L Potassium 4.1 (3.5-5.1) mmol/L Chloride 105 (98-107) mmol/L Carbon Dioxide 28 (21-32) mmol/L Anion Gap 5.0 (3-11) BUN 28 H (7-18) mg/dl Creatinine 1.17 (0.6-1.2) mg/dl Est Cr Clr Drug Dosing 33.2 ml/min Est GFR ( Amer) 48.2 Est GFR (Non-Af Amer) 41.6 BUN/Creatinine Ratio 24.1 H (10-20) Glucose 167 H (70-99) mg/dl Calcium 10.0 (8.5-10.1) mg/dl Magnesium 2.1 (1.8-2.4) mg/dl Total Bilirubin 0.4 (0.2-1) mg/dl AST 16 (15-37) U/L ALT 20 (12-78) U/L Alkaline Phosphatase 55 (45-117) U/L Troponin I < 0.015 (0-0.045) ng/ml NT-Pro-B Natriuret Pep 2187 H (0-1800) pg/ml Total Protein 6.8 (6.4-8.2) gm/dl Albumin 3.5 (3.4-5.0) gm/dl Globulin 3.3 (2.5-4.0) gm/dl Albumin/Globulin Ratio 1.1 (0.9-2) TSH 1.700 (0.300-4.500) uIu/ml Administered Medications Discontinued Medications Clonidine HCl (Clonidine Hcl 0.1 Mg Tab) 0.2 mg PO NOW STA Stop: 10/11/20 23:57 Last Admin: 02/24/20 23:59 Dose: 0.2 mg Documented by: [id number] Furosemide (Furosemide 40 Mg/4 Ml Vial) 40 mg IV NOW STA Stop: 02/24/20 22:40 Last Admin: 02/24/20 22:50 Dose: 40 mg Documented by: [id number] Magnesium Sulfate/Dextrose (Magnesium Sulfate / D5w) 1 gm in 100 mls @ 100 mls/hr IV NOW STA Stop: 02/25/20 01:30 Last Admin: 02/25/20 00:41 Dose: 100 mls/hr Documented by: [id number] Metoprolol Tartrate (Metoprolol Tartrate 1 Mg/Ml Vial) 2.5 mg IV NOW STA Stop: 02/24/20 20:56 Last Admin: 02/24/20 21:18 Dose: 2.5 mg Documented by: [id number] Discharge Plan Visit Data Chief Complaint: Cardiac Assessment Stated Complaint: A-FIB ED Provider: Alonzo Beal Discharge Problem: Atrial fibrillation with rapid ventricular response, CHF (congestive heart failure), Anemia Patient Disposition: Admitted As Inpatient Discharge Instructions Interventions: ED Discharge Assessment Last Done: 02/25/20 00:55
[2020-02-25] MEDS ORDERED: MAGNESIUM HYDROXIDE SUSP 30 ML UDC PO PRN (01:17)
[2020-02-25] MEDS ORDERED: ALUMINUM/MAGNESIUM SUSP 30 ML UDC PO PRN (01:17)
[2020-02-25] MEDS ORDERED: FLUTICASONE PROPIONATE NA SPR 16 GM BTL PRN (01:17)
[2020-02-25] MEDS ORDERED: ONDANSETRON INJ 2 MG/ML 2 ML VIAL IV PRN (01:17)
[2020-02-25] MEDS: cloNIDine HCL 0.1 MG TAB PO SCH ×3 (01:51→20:58)
[2020-02-25] MEDS: ACETAMINOPHEN 325 MG TAB PO PRN ×3 (02:03→23:27)
--- NOTE | 2020-02-25 07:06 | XRay Report ---
XR chest 1V portable CLINICAL HISTORY: rapid atrial fibrillation COMPARISON STUDY: 02/01/2020 FINDINGS: The cardiac and mediastinal contours are normal. There is no evidence of focal pulmonary co nsolidation. There is no evidence of failure. No pleural effusions are visualized.[There is a total l eft shoulder arthroplasty. Surgical clips project over the right axillary region. IMPRESSION: No active disease in the chest. ACT 112: Negative or not required by law. Electronically signed by: Robin Conley M.D. 02/25/2020 7:05 AM
[2020-02-25 07:56] LABS: Basophils # (auto) 0.06 K/uL (0-0.2); Basophils % (auto) 0.7 %; Eosinophils # (auto) 0.25 K/uL (0-0.5); Eosinophils % (auto) 2.8 %; Hematocrit (blood only) 30.9 % (37-47); Hemoglobin 9.5 g/dL (12.0-16.0); Immature Granulocytes # (auto) 0.01 K/uL (0.00-0.02); Immature Granulocytes % (auto) 0.1 %; Lymphocytes # (auto) 2.85 K/uL (1.2-3.4); Lymphocytes % (auto) 32.3 %; Mean Corpuscular Hemoglobin 26.3 pg (25-34); Mean Corpuscular Hgb Conc 30.7 g/dL (32-36); Mean Corpuscular Volume 85.6 fL (80-100); Mean Platelet Volume 9.8 fL (7.4-10.4); Monocytes # (auto) 0.98 K/uL (0.11-0.59); Monocytes % (auto) 11.1 %; Neutrophils # (auto) 4.66 K/uL (1.4-6.5); Platelet Count 363 K/uL (130-400); RDW Coefficient of Variation 14.1 % (11.5-14.5); RDW Standard Deviation 44.6 fL (36.4-46.3); Red Blood Count 3.61 M/uL (4.2-5.4); White Blood Count 8.81 K/uL (4.8-10.8)
[2020-02-25 08:11] LABS: INR 1.4 (0.9-1.1); Partial Thromboplastin Ratio 1.5; Partial Thromboplastin Time 41.6 Seconds (21.0-31.0); Prothrombin Time 14.6 Seconds (9.0-12.0)
[2020-02-25 08:22] LABS: Albumin Level 3.6 gm/dl (3.4-5.0); BUN Creatinine Ratio 20.2 (10-20); Blood Urea Nitrogen 28 mg/dl (7-18); Calcium 10.4 mg/dl (8.5-10.1); Carbon Dioxide 28 mmol/L (21-32); Chloride 103 mmol/L (98-107); Creatinine Clr Calc Pharmacy 28.3 ml/min; Est GFR (African American) 40.2; Est GFR (Non-African American) 34.7; Glucose 107 mg/dl (70-99); Magnesium 2.5 mg/dl (1.8-2.4); Potassium 3.7 mmol/L (3.5-5.1); Sodium 137 mmol/L (136-145)
[2020-02-25 08:27] LABS: Phosphorus 3.6 mg/dl (2.5-4.9); Troponin I < 0.015 ng/ml (0-0.045)
[2020-02-25] MEDS ORDERED: FAMOTIDINE 20 MG TAB PO SCH (09:00)
[2020-02-25] MEDS ORDERED: NON-FORMULARY MEDICATION (Biotin 5 MG) PO SCH (09:00)
[2020-02-25] MEDS ORDERED: TRIAMTERENE/HCTZ 37.5/25MG CAP PO SCH (09:00)
--- NOTE | 2020-02-25 09:43 | Cardiology Consultation ---
Date of Consultation February 25, 2020 Assessment & Plan (1) Atrial fibrillation with rapid ventricular response: patient has history of paroxysmal atrial fibrillation and presented with an episode of paroxysmal atrial fibrillation. She is minimally symptomatic. She is aware of the arrhythmia, but does not appear to have other severe symptoms. In fact, she was able to stay at home for many hours hoping that it would resolve on its own. I think there is still a possibility that she c onverts spontaneously. However, since she is bothered by the arrhythmia and she has been on systemic anticoagulation, it would be reasonable to consider cardioversion as well. More importantly, we need to determine a better plan moving forward. She will have additional episodes of atrial fibrillation. More aggressive rate control is hampered by her relative sinus bradycardia when she is not in atrial fibrillation. There is some mention in her record about the use of diltiazem causing significant bradycardia previously. She may benefit from antiarrhythmic therapy with amiodarone, but this could also have some affect on her sinus rate. Starting amiodarone would likely preclude continued use of Bystolic as well. I did talk to her briefly about a pacemaker and its utility in atrial fibrillation. I do not believe she meets the indication current Zhanna, but for recurrent episodes or difficulty adjusting her medicines due to bradycardia or the concern of bradycardia pacemaker may be indicated. I will attempt to arrange a cardioversion if the patient converts spontaneously she can certainly be discharged on her usual outpatient medical regimen with follow-up in the cardiology clinic. Additionally, her creatinine clearance is just below the cutoff for normal dosing of Xarelto. Would be reasonable to consider a switch to apixaban 5 mg twice daily. History of Present Illness Reason for Consultation: Atrial fibrillation Requesting Physician: Claus Attending Physician: Ignacio Devlin History of Present Illness the patient is a 81-year-old woman with a history of paroxysmal atrial fibrillation who was admitted for paroxysmal atrial fibrillation. Patient was initially seen by me in 2018. She was admitted at that time with an episode of atrial fibrillation and underwent cardioversion. She has had some episodes of atrial fibrillation in the interim. However, she generally convert spontaneously within a few hours. The episodes themselves are manifest by a sense of palpitation an irregularity in her heartbeat. She seems to have few other symptoms. She does not like the sensation and limits her activity when it occurs. She may have an element of mild dyspnea. She does not report significant dizziness or lightheadedness. No chest pain. Early yesterday morning around 2:00 a.m. she began experience atrial fibrillation. She waited throughout the day to see if she will convert on her home but in the evening she eventually presented to the emergency room and was admitted over concerns of congestive heart failure. Currently the patient claims to be feeling well. She still notices the palpitations, but is not having other symptoms such as chest pain, dyspnea or dizziness. She has limited her activity recently due to right foot discomfort. She is otherwise very sedentary although she does perform some very minimal housework and helps her with his ADLs due to spinal stenosis and a colostomy. Allergies Allergy/AdvReac Type Severity Reaction Status Date / Time phenobarbital Allergy Intermediate HIVES Verified 02/24/20 21:08 amlodipine Allergy Unknown Unknown Verified 02/24/20 21:08 benazepril Allergy Unknown Unknown Verified 02/24/20 21:08 enalapril Allergy Unknown Unknown Verified 02/24/20 21:08 lisinopril Allergy Unknown Unknown Verified 02/24/20 21:08 simvastatin Allergy Unknown Unknown Verified 02/24/20 21:08 spironolactone Allergy Unknown Unknown Verified 02/24/20 21:08 codeine AdvReac Mild HEADACHE,NAUSEA Verified 02/24/20 21:08 AND VOMITING hydrocodone AdvReac Mild EXTENDED Verified 02/24/20 21:08 NAUSEA AND VOMITING tramadol AdvReac Mild NAUSEA Verified 02/24/20 21:08 Cipro AdvReac Unknown DIZZY Verified 12/26/17 17:29 ciprofloxacin AdvReac Unknown DIZZY Verified 02/01/20 14:16 metoprolol AdvReac Unknown DIZZY,DEPRE Verified 02/01/20 14:16 SSED Home Medications Home Medications Medication Instructions Recorded Confirmed Type cholecalciferol (vitamin D3) 2,000 unit PO QAM 03/28/18 02/24/20 History [Vitamin D3] famotidine 20 mg PO QAM 03/28/18 02/24/20 History magnesium chloride [Mag 64] 64 mg PO QAM 03/28/18 02/24/20 History biotin 5 mg capsule 5 mg PO QAM cap 05/29/19 02/24/20 History candesartan 32 mg PO QAM 12/23/19 02/24/20 History felodipine 5 mg PO BID 12/23/19 02/24/20 History fluticasone propionate [Flonase 2 sprays INTRANASAL DAILY PRN 12/23/19 02/24/20 History Allergy Relief] triamterene-hydrochlorothiazid 1 cap PO QAM 12/23/19 02/24/20 History diclofenac sodium 1 % gel topical 2 g TOPICAL QID 12/31/19 02/24/20 History kit atorvastatin 10 mg PO HS 02/01/20 02/24/20 History clonidine HCl 0.1 mg tablet 0.1 mg PO BID #180 tab 02/19/20 02/24/20 Rx nebivolol 20 mg tablet 20 mg PO QAM #30 tab 02/19/20 02/24/20 Rx rivaroxaban 20 mg tablet 20 mg PO HS #90 tab 02/20/20 02/24/20 Rx Patient History Medical History Atrial fibrillation Breast cancer (02/08/17) "Status post right breast infiltrating ductal carcinoma in 1995 Status post conservative breast surgery followed by radiation therapy Status post right breast lumpectomy 11/23/2010 Infiltrating ductal carcinoma, grade 3 Estrogen receptor positive, progesterone receptor positive HER-2/donnell negative Stereotactic breast biopsies bilateral 11/20/2014 Right showing DCIS and left ductal hyperplasia Stereotactic biopsy bilateral breasts 04/30/2015 right showing DCIS left ductal hyperplasia 05/30/2015 right breast mastectomy and sentinel lymph node biopsy Invasive ductal carcinoma Stage pT1a pN0 Left breast ultrasound-guided biopsy 02/08/2017 Infiltrating carcinoma grade 1 Estrogen receptor positive, progesterone receptor positive and HER-2/donnell negative Status post lumpectomy and sentinel lymph node biopsy 04/13/2017 Invasive ductal carcinoma, grade 2 Stage pT1c pN0 Oncotype DX score of 12" On 05/03/17 11:38 Osiris Lazo wrote "Status post right breast infiltrating ductal carcinoma in 1995 Status post conservative breast surgery followed by radiation therapy Status post right breast lumpectomy 11/23/2010 Infiltrating ductal carcinoma, grade 3 Estrogen receptor positive, progesterone receptor positive HER-2/donnell negative Stereotactic breast biopsies bilateral 11/20/2014 Right showing DCIS and left ductal hyperplasia Stereotactic biopsy bilateral breasts 04/30/2015 right showing DCIS left ductal hyperplasia 05/30/2015 right breast mastectomy and sentinel lymph node biopsy Invasive ductal carcinoma Stage pT1a pN0 Left breast ultrasound-guided biopsy 02/08/2017 Infiltrating carcinoma grade 1 Estrogen receptor positive, progesterone receptor positive and HER-2/donnell negative Status post lumpectomy and sentinel lymph node biopsy 04/13/2017 Invasive ductal carcinoma, grade 2 Stage pT1c pN0" Carpal tunnel syndrome Chronic anticoagulation DCIS (ductal carcinoma in situ) Dyslipidemia Gastroesophageal reflux disease Hypertension Obesity, Class II, BMI 35-39.9 Osteoarthritis Paroxysmal atrial fibrillation Sick sinus syndrome Type 2 diabetes mellitus Surgical History H/O mastectomy H/O: hysterectomy S/P total knee replacement Family History Unknown Hypertension Diabetes Sister Malignant melanoma of skin Breast cancer Grandmother Breast cancer Family/Other Melanoma Diabetes Cancer Parkinson's disease Mother Stroke Other Family history non-contributory Denies family history of Ovarian cancer Prostate cancer Myocardial infarction Colorectal cancer Social History Smoking Status: Never smoker Second Hand Exposure: No; Hx Alcohol Use: Yes Alcohol type: wine Hx Substance Use: No Preferred Language: Greek Communication Ability: Effective Health Communications Specialist Required: No Beliefs That Will Affect Care: None marital status: Current Living Situation: Spouse current occupational status: retired Feels Safe at Home: Yes Safety Concerns: Feels Safe At This Time caffeine: No Dental Care, Regularly: Yes Physical Activity Frequency: Does not Exercise Seatbelt Use: always Sunscreen Use: Yes (Sometimes) Assistive Devices: Cane and Glasses Review of Systems Review of Systems: All systems reviewed & are unremarkable except as noted in HPI & below No change in bowel or bladder habits. Occasional constipation. Some mild swelling in the right lower extremity which is chronic. Right foot pain as noted above. No recent fevers or chills or constitutional symptoms. Physical Exam Physical Exam: She is alert and oriented x3. Mood affect appear normal. She answered all questions appropriately. HEENT: Sclerae are anicteric. Pupils are equal and reactive to light and accommodation. Extraocular movements were intact. Neuro: Cranial nerves intact Neck: Examination of the submandibular region did not reveal any significant lymphadenopathy. Carotids are palpable bilaterally and free of bruits on auscultation. There was no evidence of jugular venous distention. The thyroid was not enlarged. Lungs: Lungs are clear to auscultation bilaterally. There are no rales wheezes or rhonchi. She has normal respiratory effort without use of accessory muscles. There is normal pulmonary excursion. Cardiac: The rhythm was irregular. S1 and S2 were normal. There are no murmurs on examination. The PMI was not markedly displaced on palpation. Abdomen: The abdomen was soft and nontender. Extremities: Patient has bilateral radial pulses that are equal in intensity. There is no evidence cyanosis or clubbing. There was no evidence of significant peripheral edema bilaterally. Skin: There are no rashes noted on examination today. Results & Data ([facility]) Vital Signs (Past 12 Hours) Vital Signs Temp Pulse Pulse Resp BP BP Pulse Ox 02/25/20 07:09 36.4 C L 93 H 18 99/63 L 97 02/25/20 04:14 36.4 C L 74 19 86/51 L 96 02/25/20 02:12 36.8 C 81 16 86/55 L 98 02/25/20 00:44 114 H 19 102/88 97 02/24/20 23:00 111 H 17 129/80 97 02/24/20 22:30 115 H 14 121/91 96 02/24/20 22:20 96 H 18 97 02/24/20 22:10 83 20 96 02/24/20 22:01 99 H 18 121/62 97 02/24/20 22:00 87 16 96 02/24/20 21:50 95 H 20 96 02/24/20 21:40 73 16 97 Laboratory Results Abnormal Lab Results 02/24/20 02/24/20 02/24/20 20:56 20:56 20:56 WBC 6.69 RBC 3.39 L Hgb 8.9 L Hct 29.0 L MCV 85.5 MCH 26.3 MCHC 30.7 L RDW Std Deviation 44.3 RDW Coeff of Paco 14.2 Plt Count 335 MPV 9.6 Immature Gran % (Auto) 0.1 Neut % (Auto) 60.1 Lymph % (Auto) 26.2 [place]asta % (Auto) 9.7 Eos % (Auto) 3.0 Baso % (Auto) 0.9 Neut # (Auto) 4.02 Lymph # (Auto) 1.75 [place] # (Auto) 0.65 H Eos # (Auto) 0.20 Baso # (Auto) 0.06 Immature Gran # (Auto) 0.01 PT 15.4 H INR 1.5 H APTT PTT Ratio Sodium 139 Potassium 4.1 Chloride 105 Carbon Dioxide 28 Anion Gap 5.0 BUN 28 H Creatinine 1.17 Est Cr Clr Drug Dosing 33.2 Est GFR ( Amer) 48.2 Est GFR (Non-Af Amer) 41.6 BUN/Creatinine Ratio 24.1 H Glucose 167 H Calcium 10.0 Phosphorus Magnesium 2.1 Total Bilirubin 0.4 AST 16 ALT 20 Alkaline Phosphatase 55 Troponin I < 0.015 NT-Pro-B Natriuret Pep 2187 H Total Protein 6.8 Albumin 3.5 Globulin 3.3 Albumin/Globulin Ratio 1.1 TSH 1.700 02/25/20 02/25/20 02/25/20 07:19 07:19 07:19 WBC 8.81 RBC 3.61 L Hgb 9.5 L Hct 30.9 L MCV 85.6 MCH 26.3 MCHC 30.7 L RDW Std Deviation 44.6 RDW Coeff of Paco 14.1 Plt Count 363 MPV 9.8 Immature Gran % (Auto) 0.1 Neut % (Auto) 53.0 Lymph % (Auto) 32.3 [place]asta % (Auto) 11.1 Eos % (Auto) 2.8 Baso % (Auto) 0.7 Neut # (Auto) 4.66 Lymph # (Auto) 2.85 [place] # (Auto) 0.98 H Eos # (Auto) 0.25 Baso # (Auto) 0.06 Immature Gran # (Auto) 0.01 PT 14.6 H INR 1.4 H APTT 41.6 H PTT Ratio 1.5 Sodium 137 Potassium 3.7 Chloride 103 Carbon Dioxide 28 Anion Gap 6.0 BUN 28 H Creatinine 1.36 H Est Cr Clr Drug Dosing 28.3 Est GFR ( Amer) 40.2 Est GFR (Non-Af Amer) 34.7 BUN/Creatinine Ratio 20.2 H Glucose 107 H Calcium 10.4 H Phosphorus 3.6 Magnesium 2.5 H Total Bilirubin AST ALT Alkaline Phosphatase Troponin I < 0.015 NT-Pro-B Natriuret Pep Total Protein Albumin 3.6 Globulin Albumin/Globulin Ratio TSH Diagnostic Findings Chest x-ray obtained at the time admission not reveal any acute cardiopulmonary findings echocardiogram performed 05/26/2018: Normal LV systolic function with ejection fraction 55-60%. No significant valvular heart disease. ECG Additional Comments: Atrial fibrillation with controlled ventricular response PG Care Time/CCT Total # of Minutes Spent Total Time Spent with Patient: Total time spent is greater than 50% in coordination of care (as documented) at patient's floor/unit and/or counseling patient: Coding Level of Care Code 04895 Initial Inpt Care Lvl 3 Diagnoses Atrial fibrillation with rapid ventricular response I48.91
[2020-02-25] MEDS: MAGNESIUM CHLORIDE 64MG DELAYED REL TAB PO SCH (10:20)
[2020-02-25] MEDS: FAMOTIDINE 20 MG TAB PO SCH ×2 (10:20→20:57)
[2020-02-25] MEDS: CHOLECALCIFEROL 1,000 UNITS 25 MCG TAB PO SCH (10:20)
[2020-02-25] MEDS: DICLOFENAC SOD 1% GEL 100 GM TUBE EXT SCH ×4 (10:21→20:58)
--- NOTE | 2020-02-25 15:50 | Electrocardiogram Report ---
Test Reason : Blood Pressure : / mmHG Vent. Rate : 103 BPM Atrial Rate : 326 BPM P-R Int : 000 ms QRS Dur : 084 ms QT Int : 324 ms P-R-T Axes : 000 -11 000 degrees QTc Int : 424 ms Atrial fibrillation with rapid ventricular response Abnormal ECG When compared with ECG of 01-FEB-2020 13:30, Atrial fibrillation has replaced Sinus rhythm Vent. rate has increased BY 45 BPM Confirmed by Awais Gaitan ([id number]) on 02/25/2020 3:50:01 PM Referred By: REFERRED SELF Confirmed By:Awais Gaitan
--- NOTE | 2020-02-25 16:06 | Electrocardiogram Report ---
Test Reason : Blood Pressure : / mmHG Vent. Rate : 083 BPM Atrial Rate : 000 BPM P-R Int : 000 ms QRS Dur : 088 ms QT Int : 374 ms P-R-T Axes : 000 -34 -02 degrees QTc Int : 439 ms Atrial fibrillation Left axis deviation Abnormal ECG When compared with ECG of 24-FEB-2020 20:36, (unconfirmed) No significant change was found Confirmed by Awais Gaitan ([id number]) on 02/25/2020 4:06:05 PM Referred By: REFERRED SELF Confirmed By:Awais Gaitan
[2020-02-25] MEDS ORDERED: ATORVASTATIN 10 MG TAB PO SCH (21:00)
[2020-02-25] MEDS ORDERED: RIVAROXABAN 20 MG TAB PO SCH (21:00)
--- NOTE | 2020-02-25 21:40 | Hospitalist Progress Note ---
Date of Service February 25, 2020 Assessment & Plan (1) Atrial fibrillation with rapid ventricular response: Atrial fibrillation with rapid ventricular response/acute CHF/sick sinus syndrome/hypertension- The patient will be admitted to telemetry for serial cardiac enzymes, serial EKG's, cardiac rhythm monitoring and a 2-D echocardiogram with Dopplers. Hold felodipine 5 mg p.o. twice daily due to to need to increase negative inotropes, and should help prevent her lower extremity edema Increase clonidine from 0.1 mg p.o. twice daily to 0.2 mg p.o. twice daily. Hold triamterene/HCTZ, since patient got IV Lasix in the ED. Continue nebivolol 20 mg every morning. For now, hold candesartan 32 mg p.o. daily. Consult cardiology, she has been seen by Dr. Molina in the past Plan is to monitor overnight, if spontaneously converts, can then discharge. If not may need cardioverted. continue rivaroxaban, (2) CHF (congestive heart failure): See above (3) Anemia: Hemoglobin has gradually decreased over the past year, and is now 8.9 upon admission. hemoglobin steady, will monitor. given her age and comorbidities, do not recommend colon cancer screening. will defer to PCP. (4) Type 2 diabetes mellitus: Glucose upon admission 167. On no listed medications at this time. Check hemoglobin A1c If blood sugar is elevated in a.m. or increased A1c, will add Accu-Cheks before meals and at bedtime with NovoLog coverage per scale (5) Sick sinus syndrome: See above (6) Hypertension: See above (7) Gastroesophageal reflux disease: On famotidine 20 mg p.o. every morning, and will increase to twice daily (8) Dyslipidemia: continue statin. (9) Chronic kidney disease: CKD stage 3b will continue to monitor creatinine clearance Admission and Anticipated Discharge Date Admission Date: February 24, 2020 Subjective 89 yo female reports feeling well. She has no new complaints. She continues to feel palptations however. Review of Systems Review of Systems: The patient denies cough, lower extremity swelling, sore throat, fevers, chills, sweats, nausea, vomiting, diarrhea , constipation, abdominal pain, pelvic pain, blood in urine or stool, dysuria, urinary frequency or urgency, lightheadedness, dizziness, headache, memory loss, loss of consciousness, rash, abnormal bruising or bleeding, imbalance, focal or generalized weakness, numbness or tingling in arms or legs, generalized arthralgias or myalgias, back or neck pain, or night sweats. The review of systems is otherwise negative other than for that already noted above, and at least 10 systems have been reviewed. Physical Exam Physical Exam: The patient is awake, alert and oriented 3, well developed and well nourished, normocephalic and atraumatic, lying in bed and in no acute distress. HEENT--PERRL, EOMI, mucous membranes and oropharynx normal. Neck--supple. No JVD. No bruits. Thyroid normal, trachea midline, no adenopathy. Heart--normal S1 and S2. No murmurs, rubs or gallops. Lungs--few crackles at the bases bilaterally. No respiratory distress, no accessory muscle use. Abdomen--normal bowel sounds and soft. Nontender. Nondistended. Extremities--no cyanosis or clubbing. 2+ bilateral pretibial pitting edema. Dermatologic--normal skin turgor, normal color, no abnormal lymph nodes, no rash. Neurologic--cranial nerves II through XII grossly intact. Rheumatologic--normal range of motion. Psychiatric--normal affect. Results & Data Results & Data ([facility]) Vital Signs (Past 12 Hours) Vital Signs Temp Pulse Resp BP Pulse Ox 02/25/20 19:52 36.4 C L 92 H 21 113/71 97 02/25/20 15:22 36.5 C 88 21 93/58 L 95 02/25/20 11:02 36.4 C L 84 19 104/66 97 PG Care Time/CCT Total # of Minutes Spent Total Time Spent with Patient: Total time spent is greater than 50% in coordination of care (as documented) at patient's floor/unit and/or counseling patient: Coding Level of Care Code 41534 Subseq Hosp Care Lvl 3 Diagnoses Atrial fibrillation with rapid ventricular response I48.91 CHF (congestive heart failure) I50.9 Anemia D64.9 Type 2 diabetes mellitus E11.9 Sick sinus syndrome I49.5 Hypertension I10 Gastroesophageal reflux disease K21.9 Dyslipidemia E78.5 Chronic kidney disease N18.9 Time Spent (min) 35
[2020-02-26 07:01] VITALS: TEMP 97.9
[2020-02-26 07:15] VITALS: O2SAT 98
--- NOTE | 2020-02-26 07:18 | Anesthesiology Consultation ---
Date of Service February 26, 2020 Covid 19 negative on 02/25/20. Assessment & Plan (1) Encounter for pre-operative examination: Chart Review Chart Review: Acceptable Risk for Surgery and Patient NOT seen in Pre Admission Testing Consults Requested none History Surgery Operation Date: 02/26/20 07:15 Proposed Procedures p Cardioversion Baggage And Mail Agent w/Anesthesia - Bert Molina MD Height/Weight Height: 5 ft 1 in Weight: 85 kg Allergies Allergy/AdvReac Type Severity Reaction Status Date / Time phenobarbital Allergy Intermediate HIVES Verified 02/24/20 21:08 amlodipine Allergy Unknown Unknown Verified 02/24/20 21:08 benazepril Allergy Unknown Unknown Verified 02/24/20 21:08 enalapril Allergy Unknown Unknown Verified 02/24/20 21:08 lisinopril Allergy Unknown Unknown Verified 02/24/20 21:08 simvastatin Allergy Unknown Unknown Verified 02/24/20 21:08 spironolactone Allergy Unknown Unknown Verified 02/24/20 21:08 codeine AdvReac Mild HEADACHE,NAUSEA Verified 02/24/20 21:08 AND VOMITING hydrocodone AdvReac Mild EXTENDED Verified 02/24/20 21:08 NAUSEA AND VOMITING tramadol AdvReac Mild NAUSEA Verified 02/24/20 21:08 Cipro AdvReac Unknown DIZZY Verified 12/26/17 17:29 ciprofloxacin AdvReac Unknown DIZZY Verified 02/01/20 14:16 metoprolol AdvReac Unknown DIZZY,DEPRE Verified 02/01/20 14:16 SSED Medications Home Medications Medication Instructions Recorded Confirmed Last Taken cholecalciferol (vitamin D3) 2,000 unit PO QAM 03/28/18 02/24/20 02/24/20 08:00 [Vitamin D3] famotidine 20 mg PO QAM 03/28/18 02/24/20 02/24/20 08:00 magnesium chloride [Mag 64] 64 mg PO QAM 03/28/18 02/24/20 02/24/20 08:00 biotin 5 mg capsule 5 mg PO QAM cap 05/29/19 02/24/20 02/21/20 candesartan 32 mg PO QAM 12/23/19 02/24/20 02/24/20 08:00 felodipine 5 mg PO BID 12/23/19 02/24/20 02/24/20 08:00 fluticasone propionate [Flonase 2 sprays INTRANASAL DAILY PRN 12/23/19 02/24/20 Unknown Allergy Relief] triamterene-hydrochlorothiazid 1 cap PO QAM 12/23/19 02/24/20 02/24/20 08:00 diclofenac sodium 1 % gel topical 2 g TOPICAL QID 12/31/19 02/24/20 02/01/20 kit atorvastatin 10 mg PO HS 02/01/20 02/24/20 02/24/20 20:00 clonidine HCl 0.1 mg tablet 0.1 mg PO BID #180 tab 02/19/20 02/24/20 02/24/20 16:00 nebivolol 20 mg tablet 20 mg PO QAM #30 tab 02/19/20 02/24/20 02/24/20 08:00 rivaroxaban 20 mg tablet 20 mg PO HS #90 tab 02/20/20 02/24/20 02/24/20 20:00 Active Medications Generic Name Dose Route Start Last Admin Trade Name Freq PRN Reason Stop Dose Admin Acetaminophen 650 mg 02/25/20 01:17 02/25/20 23:27 Acetaminophen 325 Mg Tab PO 03/26/20 01:16 650 mg Q4H PRN Administration Pain or Fever Atorvastatin Calcium 10 mg 02/25/20 21:00 02/25/20 20:58 Atorvastatin 10 Mg Tab PO 03/26/20 20:59 10 mg HS TY Administration Clonidine HCl 0.2 mg 02/25/20 01:17 02/25/20 20:58 Clonidine Hcl 0.1 Mg Tab PO 03/26/20 01:16 0.1 mg BID TY Administration Diclofenac Sodium 2 gm 02/25/20 09:00 02/25/20 20:58 Diclofenac Sod 1% Gel 100 Gm Tube EXT 03/26/20 08:59 2 gm QID TY Administration Famotidine 20 mg 02/25/20 09:00 02/25/20 20:57 Famotidine 20 Mg Tab PO 03/26/20 08:59 Not Given BID TY Magnesium Chloride 64 mg 02/25/20 09:00 02/25/20 10:20 Magnesium Chloride 64mg Delayed Rel Tab PO 03/26/20 08:59 64 mg QAM TY Administration Miscellaneous 1 ea 02/25/20 08:00 10/13/20 00:02 Candesartan~Order Awaiting Action N/A 03/26/20 07:59 Not Given QS TY Miscellaneous 1 ea 02/25/20 08:00 02/26/20 00:02 Nebivolol~Order Awaiting Action N/A 03/26/20 07:59 Not Given QS TY Rivaroxaban 20 mg 02/25/20 21:00 02/25/20 20:58 Rivaroxaban 20 Mg Tab PO 03/26/20 20:59 20 mg HS TY Administration Vitamin D 2,000 units 02/25/20 09:00 02/25/20 10:20 Cholecalciferol 1,000 Units 25 Mcg Tab PO 03/26/20 08:59 2,000 units QAM TY Administration Past Medical History Medical History Anemia Atrial fibrillation Breast cancer (02/08/17) "Status post right breast infiltrating ductal carcinoma in 1995 Status post conservative breast surgery followed by radiation therapy Status post right breast lumpectomy 11/23/2010 Infiltrating ductal carcinoma, grade 3 Estrogen receptor positive, progesterone receptor positive HER-2/donnell negative Stereotactic breast biopsies bilateral 11/20/2014 Right showing DCIS and left ductal hyperplasia Stereotactic biopsy bilateral breasts 04/30/2015 right showing DCIS left ductal hyperplasia 05/30/2015 right breast mastectomy and sentinel lymph node biopsy Invasive ductal carcinoma Stage pT1a pN0 Left breast ultrasound-guided biopsy 02/08/2017 Infiltrating carcinoma grade 1 Estrogen receptor positive, progesterone receptor positive and HER-2/donnell negative Status post lumpectomy and sentinel lymph node biopsy 04/13/2017 Invasive ductal carcinoma, grade 2 Stage pT1c pN0 Oncotype DX score of 12" On 05/03/17 11:38 Osiris Lazo wrote "Status post right breast infiltrating ductal carcinoma in 1995 Status post conservative breast surgery followed by radiation therapy Status post right breast lumpectomy 11/23/2010 Infiltrating ductal carcinoma, grade 3 Estrogen receptor positive, progesterone receptor positive HER-2/donnell negative Stereotactic breast biopsies bilateral 11/20/2014 Right showing DCIS and left ductal hyperplasia Stereotactic biopsy bilateral breasts 04/30/2015 right showing DCIS left ductal hyperplasia 05/30/2015 right breast mastectomy and sentinel lymph node biopsy Invasive ductal carcinoma Stage pT1a pN0 Left breast ultrasound-guided biopsy 02/08/2017 Infiltrating carcinoma grade 1 Estrogen receptor positive, progesterone receptor positive and HER-2/donnell negative Status post lumpectomy and sentinel lymph node biopsy 04/13/2017 Invasive ductal carcinoma, grade 2 Stage pT1c pN0" Carpal tunnel syndrome Chronic anticoagulation DCIS (ductal carcinoma in situ) Dyslipidemia Gastroesophageal reflux disease Hypertension Obesity, Class II, BMI 35-39.9 Osteoarthritis Paroxysmal atrial fibrillation Sick sinus syndrome Type 2 diabetes mellitus Past Family History Family History Unknown Hypertension Diabetes Sister Malignant melanoma of skin Breast cancer Grandmother Breast cancer Family/Other Melanoma Diabetes Cancer Parkinson's disease Mother Stroke Other Family history non-contributory Denies family history of Ovarian cancer Prostate cancer Myocardial infarction Colorectal cancer Past Surgical History Surgical History H/O mastectomy H/O: hysterectomy S/P total knee replacement Social History Smoking Status: Never smoker Hx Alcohol Use: Yes Alcohol type: wine alcohol intake frequency: holidays/special occasions only Hx Substance Use: No Physical Exam Vital Signs Last Vital Signs Temp 36.6 C 02/26/20 03:57 Pulse 110 H 02/26/20 07:14 Resp 18 02/26/20 07:14 BP 133/79 02/26/20 07:14 Pulse Ox 98 02/26/20 07:14 Testing Laboratory Results 02/25/20 07:19 02/25/20 07:19 PT 14.6 Seconds (9.0-12.0) H 02/25/20 07:19 INR 1.4 (0.9-1.1) H 02/25/20 07:19 APTT 41.6 Seconds (21.0-31.0) H 02/25/20 07:19 Electrocardiogram Date: 02/26/20 Findings: + AFIB @ (91)
--- NOTE | 2020-02-26 07:29 | Cardioversion ---
Date of Service February 26, 2020 PG Electrical Cardioversion Rp Electrical Cardioversion Report Procedure performed: Cardioversion Indication: The patient is an 89-year-old woman with a history of paroxysmal atrial fibrillation who presented to the hospital with persistent atrial fibri llation and associated symptom Staff china decorator: Zaki Molina MD Procedure in detail: The patient was informed of the risks benefits and alternatives to the intended procedure. She understood such which proceed. She was taken to the cardiac catheterization suite holding area. A general anesthetic was administered by the Anesthesiology Service. Once appropriately anesthetized, the patient was cardioverted using 200 joules delivered in a biphasic fashion. This returned the patient to sinus rhythm. The patient tolerated procedure well, there were no immediate complications. Patient was neurologically intact subsequent to the procedure. Impression: Successful cardioversion from atrial fibrillation to normal sinus rhythm Coding Level of Care Code Cardioversion, elective Additional Codes Electrical Cardioversion Report ([id number])
[2020-02-26] MEDS ORDERED: PROPOFOL IV EMULSION 10 MG/ML 20 ML VIAL IV ONE (07:36)
[2020-02-26] MEDS ORDERED: LIDOCAINE HCL 2% MPF (LOCAL) 5 ML VIAL INFIL ONE (07:36)
--- NOTE | 2020-02-26 07:40 | Anesthesiology Progress Note ---
Date of Service February 26, 2020 Anesthesia Post Procedure Vital Signs Vital Signs: Temp Pulse Pulse Resp BP BP Pulse Ox 02/26/20 07:37 62 02/26/20 07:14 110 H 18 133/79 98 02/26/20 03:57 36.6 C 85 18 97/57 L 95 02/25/20 23:23 36.7 C 116 H 19 95/60 L 96 02/25/20 19:52 36.4 C L 92 H 21 113/71 97 02/25/20 15:22 36.5 C 88 21 93/58 L 95 02/25/20 11:02 36.4 C L 84 19 104/66 97 Transfer of Care Handoff Completed per policy Notes Mental Status: alert / awake / arousable Patient Amnestic to Procedure: Yes Nausea / Vomiting: adequately controlled Pain: adequately controlled Airway Patency, RR, SpO2: stable & adequate BP & HR: stable & adequate Hydration State: stable & adequate Anesthetic Complications: no major complications apparent and Pt Satisfied with anesthetic care Notes: The patient is awake and comfortable. Her vital signs are stable.
[2020-02-26 08:08] VITALS: BP 119/70
[2020-02-26] MEDS: FAMOTIDINE 20 MG TAB PO SCH (08:09)
[2020-02-26] MEDS: CHOLECALCIFEROL 1,000 UNITS 25 MCG TAB PO SCH (08:10)
[2020-02-26] MEDS: MAGNESIUM CHLORIDE 64MG DELAYED REL TAB PO SCH (08:10)
[2020-02-26] MEDS: DICLOFENAC SOD 1% GEL 100 GM TUBE EXT SCH (08:11)
[2020-02-26] MEDS: cloNIDine HCL 0.1 MG TAB PO SCH (08:11)
[2020-02-26 08:18] LABS: Basophils # (auto) 0.06 K/uL (0-0.2); Basophils % (auto) 0.9 %; Eosinophils # (auto) 0.16 K/uL (0-0.5); Eosinophils % (auto) 2.3 %; Hematocrit (blood only) 29.9 % (37-47); Hemoglobin 9.3 g/dL (12.0-16.0); Immature Granulocytes # (auto) 0.02 K/uL (0.00-0.02); Immature Granulocytes % (auto) 0.3 %; Lymphocytes # (auto) 1.75 K/uL (1.2-3.4); Lymphocytes % (auto) 25.6 %; Mean Corpuscular Hemoglobin 26.5 pg (25-34); Mean Corpuscular Hgb Conc 31.1 g/dL (32-36); Mean Corpuscular Volume 85.2 fL (80-100); Mean Platelet Volume 9.5 fL (7.4-10.4); Monocytes # (auto) 0.91 K/uL (0.11-0.59); Monocytes % (auto) 13.3 %; Neutrophils # (auto) 3.94 K/uL (1.4-6.5); Neutrophils % (auto) 57.6 %; Platelet Count 331 K/uL (130-400); RDW Coefficient of Variation 14.1 % (11.5-14.5); RDW Standard Deviation 43.8 fL (36.4-46.3); Red Blood Count 3.51 M/uL (4.2-5.4); White Blood Count 6.84 K/uL (4.8-10.8)
--- NOTE | 2020-02-26 08:22 | Cardiology Progress Note ---
Date of Service February 26, 2020 Assessment & Plan (1) Atrial fibrillation with rapid ventricular response: Successfully cardioverted to sinus rhythm today. I think she would be safe for discharge. At the time of discharge I think we can make the following changes in her medical regimen in an attempt to prevent further episodes of atrial fibrillation: Reduce Bystolic to 10 mg daily Start amiodarone 200 mg daily Stop Xarelto Start Eliquis 5 mg twice daily Hopefully she can maintain sinus rhythm and avoid further interventions. We will need to monitor her for significant bradycardia when starting amiodarone. This is the rationale behind reducing her Bystolic. She may require some adjustment in her antihypertensives as a result. Also, her creatinine clearance appears inadequate for full dose Xarelto. However, she does meet criteria for full dose Eliquis which is likely a better choice. Admission and Anticipated Discharge Date Admission Date: February 24, 2020 Subjective The patient is feeling well. She still notices palpitations. Review of Systems Review of Systems: Per HPI. No chest pain. No breathing difficulty Physical Exam Physical Exam: She is alert and oriented x3. Mood affect appear normal. She answered all questions appropriately. HEENT: Sclerae are anicteric. Pupils are equal and reactive to light and accommodation. Extraocular movements were intact. Neuro: Cranial nerves intact Lungs: There are no rales wheezes or rhonchi. She has normal respiratory effort without use of accessory muscles. There is normal pulmonary excursion. Cardiac: The rhythm was irregular. S1 and S2 were normal. There are no murmurs on examination. The PMI was not markedly displaced on palpation. Abdomen: The abdomen was soft and nontender. Extremities: Patient has bilateral radial pulses that are equal in intensity. There is no evidence cyanosis or clubbing. Skin: There are no rashes noted on examination today. Results & Data ([facility]) Vital Signs (Past 12 Hours) Vital Signs Temp Pulse Pulse Resp BP BP Pulse Ox 02/26/20 08:07 36.6 C 62 18 119/70 98 02/26/20 07:37 62 02/26/20 07:14 110 H 18 133/79 98 02/26/20 03:57 36.6 C 85 18 97/57 L 95 02/25/20 23:23 36.7 C 116 H 19 95/60 L 96 Laboratory Results Abnormal Lab Results 02/25/20 02/25/20 02/25/20 07:19 11:38 11:38 WBC RBC Hgb Hct MCV MCH MCHC RDW Std Deviation RDW Coeff of Paco Plt Count MPV Immature Gran % (Auto) Neut % (Auto) Lymph % (Auto) [place] % (Auto) Eos % (Auto) Baso % (Auto) Neut # (Auto) Lymph # (Auto) [place] # (Auto) Eos # (Auto) Baso # (Auto) Immature Gran # (Auto) Sodium 137 Potassium 3.7 Chloride 103 Carbon Dioxide 28 Anion Gap 6.0 BUN 28 H Creatinine 1.36 H Est Cr Clr Drug Dosing 28.3 Est GFR ( Amer) 40.2 Est GFR (Non-Af Amer) 34.7 BUN/Creatinine Ratio 20.2 H Glucose 107 H Calcium 10.4 H Phosphorus 3.6 Magnesium 2.5 H Troponin I < 0.015 Albumin 3.6 COVID-19 Eval Order Covid19 IDNow atMMNC SARS-CoV-2, RNA, NAAT NEGATIVE 02/25/20 02/25/20 02/26/20 12:55 20:39 07:58 WBC 6.84 RBC 3.51 L Hgb 9.3 L Hct 29.9 L MCV 85.2 MCH 26.5 MCHC 31.1 L RDW Std Deviation 43.8 RDW Coeff of Paco 14.1 Plt Count 331 MPV 9.5 Immature Gran % (Auto) 0.3 Neut % (Auto) 57.6 Lymph % (Auto) 25.6 [place] % (Auto) 13.3 Eos % (Auto) 2.3 Baso % (Auto) 0.9 Neut # (Auto) 3.94 Lymph # (Auto) 1.75 [place] # (Auto) 0.91 H Eos # (Auto) 0.16 Baso # (Auto) 0.06 Immature Gran # (Auto) 0.02 Sodium Potassium Chloride Carbon Dioxide Anion Gap BUN Creatinine Est Cr Clr Drug Dosing Est GFR ( Amer) Est GFR (Non-Af Amer) BUN/Creatinine Ratio Glucose Calcium Phosphorus Magnesium Troponin I < 0.015 < 0.015 Albumin COVID-19 Eval Order SARS-CoV-2, RNA, NAAT PG Care Time/CCT Total # of Minutes Spent Total Time Spent with Patient: Total time spent is greater than 50% in coordination of care (as documented) at patient's floor/unit and/or counseling patient: Coding Level of Care Code 24880 Subseq Hosp Care Lvl 2 Diagnoses Atrial fibrillation with rapid ventricular response I48.91
[2020-02-26 08:28] LABS: INR 1.5 (0.9-1.1); Partial Thromboplastin Ratio 1.4; Partial Thromboplastin Time 39.3 Seconds (21.0-31.0); Prothrombin Time 15.3 Seconds (9.0-12.0)
[2020-02-26 08:42] LABS: Albumin Level 3.3 gm/dl (3.4-5.0); BUN Creatinine Ratio 25.3 (10-20); Blood Urea Nitrogen 29 mg/dl (7-18); Calcium 9.9 mg/dl (8.5-10.1); Carbon Dioxide 26 mmol/L (21-32); Chloride 105 mmol/L (98-107); Creatinine Clr Calc Pharmacy 33.8 ml/min; Est GFR (African American) 49.7; Est GFR (Non-African American) 42.9; Glucose 113 mg/dl (70-99); Magnesium 2.2 mg/dl (1.8-2.4); Potassium 3.8 mmol/L (3.5-5.1); Sodium 138 mmol/L (136-145)
[2020-02-26 08:47] LABS: Phosphorus 3.4 mg/dl (2.5-4.9); Troponin I < 0.015 ng/ml (0-0.045)
[2020-02-26 10:13] VITALS: PULSE 62
--- NOTE | 2020-02-26 14:11 | Electrocardiogram Report ---
Test Reason : Blood Pressure : / mmHG Vent. Rate : 091 BPM Atrial Rate : 000 BPM P-R Int : 000 ms QRS Dur : 082 ms QT Int : 366 ms P-R-T Axes : 000 -12 016 degrees QTc Int : 450 ms Atrial fibrillation Abnormal ECG When compared with ECG of 25-FEB-2020 07:01, No significant change was found Confirmed by Awais Gaitan ([id number]) on 02/26/2020 2:11:30 PM Referred By: REFERRED SELF Confirmed By:Awais Gaitan
--- NOTE | 2020-02-26 14:14 | Electrocardiogram Report ---
Test Reason : Blood Pressure : / mmHG Vent. Rate : 059 BPM Atrial Rate : 059 BPM P-R Int : 186 ms QRS Dur : 098 ms QT Int : 424 ms P-R-T Axes : 072 -14 021 degrees QTc Int : 419 ms Sinus bradycardia with Premature supraventricular complexes Otherwise normal ECG When compared with ECG of 26-FEB-2020 06:34, (unconfirmed) Sinus rhythm has replaced Atrial fibrillation Vent. rate has decreased BY 32 BPM Nonspecific T wave abnormality no longer evident in Lateral leads Confirmed by Awais Gaitan ([id number]) on 02/26/2020 2:13:52 PM Referred By: REFERRED SELF Confirmed By:Awais Gaitan
--- NOTE | 2020-02-26 16:07 | XCELERA ---
[id number]
[2020-02-26] MEDS ORDERED: cloNIDine HCL 0.1 MG TAB PO SCH (21:00)
--- NOTE | 2020-03-03 23:35 | Discharge Summary ---
Date of Service February 26, 2020 Admission HPI Per Admitting Provider The patient is an 89-year-old female with a past medical history including diabetes mellitus type 2, sick sinus syndrome, paroxysmal atrial fibrillation, osteoarthritis, obesity, hypertension, GERD, dyslipidemia, DCIS, chronic anticoagulation, carpal tunnel syndrome, PVCs, history of mastectomy, history of hysterectomy and status post total knee replacement. The patient presented to the emergency department due to palpitations, and was found to be in atrial fibrillation with RVR in the ED. She was given 2.5 mg of metoprolol IV per the ED, with some improvement in rate control. She was also feeling short of breath, which she reports that in the past has been associated with her atrial fibrillation. She was found to have a BNP of 2187, and ED prescribed Lasix 40 mg IV x1. Principal Diagnosis as stated below Discharge Exam The patient is awake, alert and oriented 3, well developed and well nourished, normocephalic and atraumatic, lying in bed and in no acute distress. HEENT--PERRL, EOMI, mucous membranes and oropharynx normal. Neck--supple. No JVD. No bruits. Thyroid normal, trachea midline, no ad enopathy. Heart--normal S1 and S2. No murmurs, rubs or gallops. Lungs--few crackles at the bases bilaterally. No respiratory distress, no accessory muscle use. Abdomen--normal bowel sounds and soft. Nontender. Nondistended. Extremities--no cyanosis or clubbing. 2+ bilateral pretibial pitting edema. Dermatologic--normal skin turgor, normal color, no abnormal lymph nodes, no rash. Neurologic--cranial nerves II through XII grossly intact. Rheumatologic--normal range of motion. Psychiatric--normal affect. Discharge Data Allergies Allergy/AdvReac Type Severity Reaction Status Date / Time phenobarbital Allergy Intermediate HIVES Verified 03/03/20 13:41 amlodipine Allergy Unknown Unknown Verified 03/03/20 13:41 benazepril Allergy Unknown Unknown Verified 03/03/20 13:41 enalapril Allergy Unknown Unknown Verified 03/03/20 13:41 lisinopril Allergy Unknown Unknown Verified 03/03/20 13:41 simvastatin Allergy Unknown Unknown Verified 03/03/20 13:41 spironolactone Allergy Unknown Unknown Verified 03/03/20 13:41 codeine AdvReac Mild HEADACHE,NAUSEA Verified 03/03/20 13:41 AND VOMITING hydrocodone AdvReac Mild EXTENDED Verified 03/03/20 13:41 NAUSEA AND VOMITING tramadol AdvReac Mild NAUSEA Verified 03/03/20 13:41 Cipro AdvReac Unknown DIZZY Verified 12/26/17 17:29 ciprofloxacin AdvReac Unknown DIZZY Verified 03/03/20 13:41 metoprolol AdvReac Unknown DIZZY,DEPRE Verified 03/03/20 13:41 SSED Consultations 02/24/20 23:53 ED Decision to Admit Stat 02/25/20 01:17 Consult Cardiology Routine Consult Case Management - Discharge Planning Routine Procedures Performed Operation Date: 02/26/20 07:15 Actual Procedures p Cardioversion - Bert Molina MD Hospital Course (1) Atrial fibrillation with rapid ventricular response: Atrial fibrillation with rapid ventricular response/acute CHF/sick sinus syndrome/hypertension- The patient will be admitted to telemetry for serial cardiac enzymes, serial EKG's, cardiac rhythm monitoring and a 2-D echocardiogram with Dopplers. Hold felodipine 5 mg p.o. twice daily due to to need to increase negative inotropes, and should help prevent her lower extremity edema Increase clonidine from 0.1 mg p.o. twice daily to 0.2 mg p.o. twice daily. Hold triamterene/HCTZ, since patient got IV Lasix in the ED. Continue nebivolol 20 mg every morning. For now, hold candesartan 32 mg p.o. daily. Consult cardiology, she has been seen by Dr. Molina in the past Successfully cardioverted to sinus rhythm today. I think she would be safe for discharge. At the time of discharge I think we can make the following changes in her medical regimen in an attempt to prevent further episodes of atrial fibrillation: Reduce Bystolic to 10 mg daily Start amiodarone 200 mg daily Stop Xarelto Start Eliquis 5 mg twice daily (2) CHF (congestive heart failure): See above (3) Anemia: Hemoglobin has gradually decreased over the past year, and is now 8.9 upon admission. hemoglobin steady, will monitor. given her age and comorbidities, do not recommend colon cancer screening. will defer to PCP. (4) Type 2 diabetes mellitus: Glucose upon admission 167. On no listed medications at this time. Check hemoglobin A1c If blood sugar is elevated in a.m. or increased A1c, will add Accu-Cheks before meals and at bedtime with NovoLog coverage per scale (5) Sick sinus syndrome: See above (6) Hypertension: See above (7) Gastroesophageal reflux disease: On famotidine 20 mg p.o. every morning, and will increase to twice daily (8) Dyslipidemia: continue statin. (9) Chronic kidney disease: CKD stage 3b will continue to monitor creatinine clearance Total Time Total Time Spent Total Time Spent (In Minutes): 32 Discharge Plan Discharge Items Patient Disposition: Home - Self-Care Reason For Visit: ATRIAL FIB WITH RVR Discharge Diagnosis: Atrial Fib with RVR Activity: Resume your previous activity Non-emergency contact: Primary Care Provider Call non-emergency contact if: you have any medication questions Follow-up/Referrals: Giana Downey MD [Primary Care Provider] - 02/29/20 10:00 am Diet: Low Sodium (2gm) Addtl Attending Provider Instructions: Jannet recommended the following changes: Reduce Bystolic to 10 mg daily Start amiodarone 200 mg daily Stop Xarelto Start Eliquis 5 mg twice daily Will recommend followup with PCP in 1-2 weeks and Cardio in about 1 month. Pending Studies at Discharge: No Stand-Alone Forms: My [facility] [employer], Smoking Cessation Medications and DC Order Prescriptions: New Bystolic 10 mg tablet 10 mg PO DAILY Qty: 30 RF: 0 amiodarone 200 mg tablet 200 mg PO DAILY Qty: 30 RF: 0 Eliquis 5 mg tablet 5 mg PO BID Qty: 30 RF: 0 Continued clonidine HCl 0.1 mg tablet 0.1 mg PO BID Qty: 180 RF: 3 diclofenac sodium 1 % kit 2 g topical QID RF: 0 biotin 5 mg capsule 5 mg PO QAM RF: 0 famotidine 20 mg Tablet 20 mg PO QAM RF: 0 cholecalciferol (vitamin D3) [Vitamin D3] 2,000 unit Capsule 2,000 unit PO QAM RF: 0 magnesium chloride [Mag 64] 64 mg Tablet,Delayed Release (Dr/Ec) 64 mg PO QAM RF: 0 atorvastatin 10 mg tablet 10 mg PO HS RF: 0 candesartan 32 mg tablet 32 mg PO QAM RF: 0 fluticasone propionate [Flonase Allergy Relief] 50 mcg/actuation spray,suspension 2 sprays INTRANASAL DAILY PRN (Reason: Allergy Symptoms) RF: 0 Discontinued nebivolol 20 mg tablet 20 mg PO QAM Qty: 30 RF: 5 rivaroxaban 20 mg tablet 20 mg PO HS Qty: 90 RF: 3 felodipine 5 mg tablet extended release 24 hr 5 mg PO BID RF: 0 triamterene-hydrochlorothiazid 37.5-25 mg capsule 1 cap PO QAM RF: 0 No Action Xarelto 20 mg Tablet 20 mg PO PM RF: 0 felodipine 1 dose PO QAM RF: 0 triamterene-hydrochlorothiazid 1 dose PO QAM RF: 0 Discharge Orders: Discharge Order (Routine); Ordered 02/26/20 Ordered By: Ignacio Hilario/Other Patient Handouts: Apixaban oral tablets, Amiodarone tablets Admission Data Admit Date/Time: 02/24/20 23:51 Attending Provider: Ignacio Devlin Admit Provider: Milan Lucio Primary Care Provider: Giana Downey Other Providers: Milan Lucio ; Bert Molina Other Interventions: Discharge Summary Assessment (RN) Last Done: 02/26/20 10:10 Coding Level of Care Code D/C Day Management >30 mins Diagnoses Atrial fibrillation with rapid ventricular response I48.91 CHF (congestive heart failure) I50.9 Anemia D64.9 Type 2 diabetes mellitus E11.9 Sick sinus syndrome I49.5 Hypertension I10 Gastroesophageal reflux disease K21.9 Dyslipidemia E78.5 Chronic kidney disease N18.9
--- NOTE | 2020-03-11 10:50 | Coding Query ---
CONGESTIVE HEART FAILURE To Promote full compliance with coding requirements relating to patient care, physician participation is requested in all cases of supervisor sanding uncertainty. Please assist us with the following questions. Coding Question: Acute CHF is documented in the patient's medical record. To accurately code this diagnosis and to compare patient severity, we ask that you specify the type of heart failure by placing an X within the parenthesis (x). Thank you so much for your help! SYSTOLIC HEART FAILURE ( ) Acute ( ) Chronic ( ) Acute on Chronic ( ) Rheumatic ( ) Unknown DIASTOLIC HEART FAILURE ( ) Acute ( ) Chronic ( ) Acute on Chronic ( ) Rheumatic ( ) Unknown COMBINED SYSTOLIC AND DIASTOLIC HEART FAILURE ( ) Acute ( ) Chronic ( ) Acute on Chronic ( ) Rheumatic ( ) Unknown Was the CHF Present On Admission? Please check the appropriate box: ( ) Present on Admission ( x) Not Present On Admission ( ) Clinically undetermined will place addendum saying no CHF noted Thank you! Linda WOODRUFF
== END 2020-02-26 11:31 | disposition home or self-care (01) | DRG 310 ==
LOC: ED 20:27 → SUATTDRO 23:51 → 2S 23:51

== ENCOUNTER 2020-06-22 03:30 | Observation (INO) ==
[2020-06-22] MEDS: MAGNESIUM SULFATE / D5W 1 GM/100 ML BAG IV SCH ×4 (03:54→05:15)
[2020-06-22] MEDS: METOPROLOL TARTRATE 1 MG/ML VIAL IV PRN ×3 (03:58→04:52)
[2020-06-22 04:00] LABS: Basophils # (auto) 0.02 K/uL (0-0.2); Basophils % (auto) 0.2 %; Eosinophils # (auto) 0.03 K/uL (0-0.5); Eosinophils % (auto) 0.2 %; Hematocrit (blood only) 25.4 % (37-47); Hemoglobin 7.4 g/dL (12.0-16.0); Immature Granulocytes # (auto) 0.03 K/uL (0.00-0.02); Immature Granulocytes % (auto) 0.2 %; Lymphocytes # (auto) 1.51 K/uL (1.2-3.4); Lymphocytes % (auto) 12.2 %; Mean Corpuscular Hemoglobin 22.1 pg (25-34); Mean Corpuscular Hgb Conc 29.1 g/dL (32-36); Mean Corpuscular Volume 75.8 fL (80-100); Mean Platelet Volume 9.7 fL (7.4-10.4); Monocytes # (auto) 1.41 K/uL (0.11-0.59); Monocytes % (auto) 11.4 %; Neutrophils # (auto) 9.38 K/uL (1.4-6.5); Neutrophils % (auto) 75.8 %; Platelet Count 354 K/uL (130-400); RDW Coefficient of Variation 15.9 % (11.5-14.5); RDW Standard Deviation 44.2 fL (36.4-46.3); Red Blood Count 3.35 M/uL (4.2-5.4); White Blood Count 12.38 K/uL (4.8-10.8)
[2020-06-22 04:16] LABS: INR 1.3 (0.9-1.1); Partial Thromboplastin Ratio 1.3; Partial Thromboplastin Time 33.8 Seconds (21.0-31.0); Prothrombin Time 12.9 Seconds (9.0-12.0)
[2020-06-22 04:21] LABS: Alanine Aminotransferase 14 U/L (12-78); Albumin Level 3.3 gm/dl (3.4-5.0); Aspartate Aminotransferase 14 U/L (15-37); BUN Creatinine Ratio 21.9 (10-20); Blood Urea Nitrogen 24 mg/dl (7-18); Calcium 9.7 mg/dl (8.5-10.1); Carbon Dioxide 29 mmol/L (21-32); Chloride 107 mmol/L (98-107); Creatinine Clr Calc Pharmacy 33.3 ml/min; Est GFR (African American) 51.3; Est GFR (Non-African American) 44.3; Glucose 151 mg/dl (70-99); Lipase 87 U/L (73-393); Potassium 4.3 mmol/L (3.5-5.1); Sodium 140 mmol/L (136-145)
[2020-06-22] MEDS ORDERED: SODIUM CHLORIDE 0.9% 250 ML IV PRN ×3 (04:21→08:03)
[2020-06-22 04:26] LABS: Albumin Globulin Ratio 0.9 (0.9-2); Alkaline Phosphatase 51 U/L (45-117); Bilirubin,Total 0.6 mg/dl (0.2-1); Creatine Kinase 272 U/L (26-192); Creatine Kinase MB 1.9 ng/ml (0.5-3.6); Globulin 3.7 gm/dl (2.5-4.0); Troponin I < 0.015 ng/ml (0-0.045)
--- NOTE | 2020-06-22 04:34 | Emergency Department Note ---
History of Present Illness General Chief complaint: Arrhythmia/Palpitations Stated complaint: PALPITATIONS Time Seen by Provider: 06/22/20 03:32 Source: patient, EMS, RN notes reviewed and old records reviewed Mode of arrival: EMS Limitations: no limitations History of Present Illness Provider complaint: palpitations, weakness Onset (ago): hour(s) 1 Location: chest Radiation: non-radiation Current Pain Intensity: 0 Relieved By: + immobilization and + rest Exacerbated By: + movement Associated symptoms: + weakness; no chest pain, no fever/chills, no loss of appetite, no nausea/vomiting and no shortness of breath Treatments prior to arrival: none This is an 89-year-old female who presents emergency department complaining of generalized weakness along with palpitations. The patient feels she is in at rial fibrillation and notes that she is normally in a normal sinus rhythm. She reports that her Xarelto was held for 3 days so that she could have ankle surgery on Tuesday. The patient reports she is on Bystolic for her atrial fibrillation. She reports weakness whenever she tries to move around however the weakness gets better with rest. She has not taken anything for the atrial fibrillation prior to arrival. Home Medications Medication Instructions Recorded Confirmed Type cholecalciferol (vitamin D3) 2,000 unit PO QAM 03/28/18 06/22/20 History [Vitamin D3] famotidine 20 mg PO QAM 03/28/18 06/22/20 History magnesium chloride [Mag 64] 64 mg PO QAM 03/28/18 06/22/20 History biotin 5 mg capsule 5 mg PO QAM cap 05/29/19 06/22/20 History candesartan 32 mg PO QAM 12/23/19 06/22/20 History fluticasone propionate [Flonase 2 sprays INTRANASAL DAILY PRN 12/23/19 06/22/20 History Allergy Relief] diclofenac sodium 1 % gel topical 2 g TOPICAL HS 12/31/19 06/22/20 History kit atorvastatin 10 mg PO PM 02/01/20 06/22/20 History clonidine HCl 0.1 mg tablet 0.1 mg PO BID #180 tab 02/19/20 06/22/20 Rx acetaminophen [Tylenol Extra 1,000 mg PO Q6H PRN 03/19/20 06/22/20 History Strength] felodipine 5 mg PO BID 03/19/20 06/22/20 History triamterene 37.5 1 cap PO QAM #90 cap 03/25/20 06/22/20 Rx mg-hydrochlorothiazide 25 mg capsule lorazepam 0.5 mg tablet 0.5 mg PO DAILY PRN #20 tab 05/27/20 06/22/20 Rx nebivolol 20 mg tablet 20 mg PO QAM #90 tab 05/27/20 06/22/20 Rx Xarelto 20 mg PO PM #0 tab 06/20/20 06/22/20 Rx amiodarone 200 mg PO DAILY PRN 06/20/20 06/22/20 History oxycodone-acetaminophen [Percocet] 1 tab PO Q4H PRN #20 tab 06/20/20 06/22/20 Rx Allergies Allergy/AdvReac Type Severity Reaction Status Date / Time phenobarbital Allergy Intermediate hives Verified 06/20/20 09:08 amlodipine Allergy Unknown Unknown Verified 06/20/20 09:08 benazepril Allergy Unknown Unknown Verified 06/20/20 09:08 enalapril Allergy Unknown Unknown Verified 06/20/20 09:08 lisinopril Allergy Unknown Unknown Verified 06/20/20 09:08 simvastatin Allergy Unknown Unknown Verified 06/20/20 09:08 spironolactone Allergy Unknown Unknown Verified 06/20/20 09:08 codeine AdvReac Mild headache, Verified 06/20/20 09:08 N/V hydrocodone AdvReac Mild N/V Verified 06/20/20 09:08 tramadol AdvReac Mild nausea Verified 06/20/20 09:08 ciprofloxacin AdvReac Unknown dizziness Verified 06/16/20 11:26 metoprolol AdvReac Unknown dizziness, Verified 06/16/20 11:26 depression Past Med/Surg History Medical History Anemia no known hx blood transfusion Breast cancer (02/08/17) hx XRT, s/p right breast lumpectomy (2010), right breast mastectomy and sentinel lymph node biopsy (2015) Chronic kidney disease DCIS (ductal carcinoma in situ) Dyslipidemia Gastroesophageal reflux disease Hemangioma larynx (under surveillance), patient states she was told that if intubation planned for future procedures- she has been told recommendation to be done at [facility] (not [facility])* Hypertension Limb alert care status RUE Osteoarthritis Paroxysmal A-fib on anticoagulation, h/o cardioversion x2, most recent 02/26/20 ([facility]), follows with [facility] cardiology (Dr. Calixto) Type 2 diabetes mellitus diet controlled Surgical History H/O mastectomy right, left partial History of breast biopsy History of cardioversion 02/26/20 [facility] (Dr. Molina) History of carpal tunnel release of both wrists History of colonoscopy History of esophagogastroduodenoscopy (EGD) History of hysterectomy with unilateral oophorectomy History of left shoulder replacement History of lumpectomy of both breasts History of tonsillectomy Hx of difficult intubation Laryngeal hemangioma Patient was scheduled for right breast mastectomy 03/31/2015. Per anesthesia records, LMA placed was not able to seal. Converted to intubation with glide scope. Unable to see the glottis due to right-sided dark purple glottic mass. Ventilation with 2 hands and #9 oral airway. Patient woken up and case was canceled. Patient subsequently had left partial mastectomy with sentinel lymph node biopsy 04/13/17 ([facility]). Per [facility] records, Patient with supraglottic hemangioma causing difficult airway. "Endotracheal intubation was performed, a procedure that involves placement of a tube in your trachea using an instrument called a laryngoscope. When the procedure was performed, difficulty was encountered concerning your airway anatomy:your vocal cords could not be visualized due to a supraglottic hemangioma/mass obstructing the vocal cords. The mass also affected the ability of a facemask and Laryngeal mask airway to provide good ventilation. If you needed to have a breathing tube placed or any type of airway manipulation in the future, we strongly recommend you make the provider aware of this issue. For this particular surgery, we allowed you to emerge from general anesthesia with return to spontaneous ventilation with your back mildly elevated. We were able to complete the surgery with IV sedation with local anesthetic without any complications." S/P total knee replacement BL Family History Unknown Diabetes Hypertension Sister Malignant melanoma of skin Breast cancer Grandmother Breast cancer Family/Other Diabetes Melanoma Cancer Parkinson's disease Mother Stroke Other Family history non-contributory No family history of adverse response to anesthesia Denies family history of Ovarian cancer Prostate cancer Myocardial infarction Colorectal cancer Social History Smoking Status: Never smoker Second Hand Exposure: No; Hx Alcohol Use: No Hx Substance Use: No Preferred Language: Martiniquais Communication Ability: Effective 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 Beliefs That Will Affect Care: None marital status: Current Living Situation: Spouse current occupational status: retired Other Information That Helps Us Care for You: No Feels Safe at Home: Yes Safety Concerns: Feels Safe At This Time caffeine: No Dental Care, Regularly: Yes Physical Activity Frequency: Does not Exercise Seatbelt Use: always Sunscreen Use: Yes (Sometimes) Assistive Devices: None Review of Systems A total of 10 systems reviewed and were otherwise negative Physical Exam Vital Signs Vital Signs - 24 hr 06/22/20 03:33 06/22/20 03:44 06/22/20 03:58 Temperature 37.1 C Temperature Source Oral Pulse Rate 133 H 135 H Pulse Rate [Apical] Respiratory Rate 18 Respiratory Effort / Characteristics Non-Labored Spontaneous Respiratory Depth Normal Blood Pressure 115/75 104/57 L Blood Pressure [Left Arm] Blood Pressure Mean 88 Blood Pressure Mean [Left Arm] Pulse Oximetry 93 93 Oxygen Delivery Method Room Air Room Air Sepsis Recent Fever Within 48 Hours No Sepsis New/Unexplained Change in Mental Status N/A Sepsis Action Taken by Nursing No Action Required Oxygen Flow Rate - Titration Pulse Oximetry Post Tiitration 06/22/20 04:05 06/22/20 04:10 Temperature Temperature Source Pulse Rate Pulse Rate [Apical] 119 H Respiratory Rate 18 Respiratory Effort / Characteristics Non-Labored Spontaneous Respiratory Depth Normal Blood Pressure Blood Pressure [Left Arm] 121/71 Blood Pressure Mean Blood Pressure Mean [Left Arm] 87 Pulse Oximetry 88 L 100 Oxygen Delivery Method Nasal Cannula Room Air Sepsis Recent Fever Within 48 Hours Sepsis New/Unexplained Change in Mental Status Sepsis Action Taken by Nursing Oxygen Flow Rate - Titration 2 Pulse Oximetry Post Tiitration 95 VITAL SIGNS - Vital signs and nursing notes were reviewed. GENERAL - 89-year-old female appearing pale; stated age who is in no acute distress. Communicates well with provider and answers questions appropriately. SKIN - Without rashes. HEAD - NC/AT. EYES - PERRL with EOMI bilaterally. Sclera anicteric. Palpebral conjunctiva pink and moist with no injection noted. EARS - No deformities of external structures noted on gross examination bilaterally. NOSE - Midline and without cyanosis. No epistaxis or purulent drainage noted. Septum midline without deviation or septal hematoma noted. MOUTH/OROPHARYNX - Without perioral cyanosis. Buccal mucosa pink and moist and without leukoplakia. Tongue midline with equal elevation of palate bilaterally. No tonsillar hypertrophy, erythema, or exudates noted. dentition noted. NECK - Neck with FROM. Supple to palpation. lymphadenopathy noted. No nuchal rigidity. LUNGS - Chest wall symmetric without accessory muscle use, intercostals retractions, or central cyanosis. Normal vesicular breath sounds CTA B/L. No wheezes, rales, or rhonchi appreciated. CARDIAC - RRR with S1/S2. No murmur, rubs, or gallops appreciated. ABDOMEN - Abdominal contour without pulsations or visible masses. BS normoactive all four quadrants. No tenderness, palpable masses, hepatosplenomegaly, or ascites noted. RECTAL: Brown stool, heme negative no masses noted EXTREMITIES - No clubbing or peripheral cyanosis. No pretibial edema present. +3/5 radial, posterior tibial, and dorsalis pedis pulses palpated throughout. +5/5 strength noted in UE/LE bilaterally. NEUROLOGIC - Cranial nerves II through XII grossly intact. Sensory intact to light touch throughout. Patellar reflexes +2/4. PSYCH - A&Ox3 and cooperates fully with examiner. Pt is very pleasant and interacts well with examiner. Procedures Stool Hemoccult Procedural Steps Taken: stool placed in appropriate test area, developer placed on stool and control areas and controls appropriately positive and negative Hemoccult result: negative Course Administered Medications Acetaminophen (Acetaminophen 500 Mg Tab) 500 mg PO Q8H PRN PRN Reason: Pain Stop: 07/22/20 05:54 Last Admin: 06/22/20 20:38 Dose: 500 mg Documented by: [id number] Admin: 06/22/20 07:56 Dose: 500 mg Documented by: [id number] Amiodarone HCl (Amiodarone 200 Mg Tab) 200 mg PO DAILY [facility] Stop: 07/22/20 08:59 Last Admin: 06/22/20 08:55 Dose: 200 mg Documented by: [id number] Ascorbic Acid (Ascorbic Acid 500 Mg Tab) 500 mg PO QAM [facility] Stop: 07/22/20 12:59 Last Admin: 06/22/20 14:15 Dose: 500 mg Documented by: [id number] Atorvastatin Calcium (Atorvastatin 10 Mg Tab) 10 mg PO PM [facility] Stop: 07/22/20 20:59 Last Admin: 06/22/20 20:38 Dose: 10 mg Documented by: [id number] Diclofenac Sodium (Diclofenac Sod 1% Gel 100 Gm Tube) 2 gm EXT HS [facility] Stop: 07/22/20 20:59 Last Admin: 06/22/20 20:43 Dose: Not Given Documented by: [id number] Famotidine (Famotidine 20 Mg Tab) [facility] Stop: 07/22/20 08:59 Last Admin: 06/22/20 08:55 Dose: 20 mg Documented by: [id number] Ferrous Sulfate (Ferrous Sulfate 325 Mg Tab) 325 mg PO [facility] Stop: 07/22/20 12:59 Last Admin: 06/22/20 14:16 Dose: 325 mg Documented by: [id number] Insulin Aspart (Insulin Aspart 100 Units/Ml 3 Ml Pen) 0 units SC [facility] Stop: 07/22/20 07:29 Last Admin: 06/22/20 20:39 Dose: 3 units Documented by: [id number] Cosigned by: [id number] Admin: 06/22/20 17:05 Dose: 2 units Documented by: [id number] Cosigned by: [id number] Admin: 06/22/20 12:18 Dose: 3 units Documented by: [id number] Cosigned by: [id number] Admin: 06/22/20 07:45 Dose: 3 units Documented by: [id number] Cosigned by: [id number] Metoprolol Tartrate (Metoprolol Tartrate 1 Mg/Ml Vial) 5 mg IV Q5M PRN PRN Reason: Tachycardia Stop: 07/22/20 03:46 Last Admin: 06/22/20 04:52 Dose: 5 mg Documented by: [id number] Admin: 06/22/20 04:20 Dose: 5 mg Documented by: [id number] Admin: 06/22/20 03:58 Dose: 5 mg Documented by: [id number] Ondansetron HCl (Ondansetron Inj 2 Mg/Ml 2 Ml Vial) 4 mg IV Q6H PRN PRN Reason: Nausea Stop: 07/22/20 05:43 Last Admin: 06/22/20 11:26 Dose: 4 mg Documented by: [id number] Oxycodone/Acetaminophen (Oxycodone/Acetaminophen 5mg/325mg Tab) 1 tab PO Q4H PRN PRN Reason: moderate pain Stop: 07/06/20 05:43 Last Admin: 06/22/20 14:15 Dose: 1 tab Documented by: [id number] Polyethylene Glycol (Polyethylene (Miralax) 17 Gm Pack) 17 gm PO DAILY PRN PRN Reason: Constipation Stop: 07/22/20 05:43 Last Admin: 06/22/20 12:25 Dose: 17 gm Documented by: [id number] Sennosides (Senna 8.6 Mg Tab) 8.6 mg PO QAM [facility] Stop: 07/22/20 12:59 Last Admin: 06/22/20 14:16 Dose: 8.6 mg Documented by: [id number] Discontinued Medications Magnesium Sulfate/Dextrose (Magnesium Sulfate / D5w) 1 gm in 100 mls @ 100 mls/hr IV Q1H [facility] Stop: 06/22/20 05:41 Last Infusion: 06/22/20 07:36 Dose: 0 mls/hr Documented by: [id number] Admin: 06/22/20 05:15 Dose: 100 mls/hr Documented by: [id number] Infusion: 06/22/20 05:00 Dose: 0 mls/hr Documented by: [id number] Admin: 06/22/20 03:54 Dose: 100 mls/hr Documented by: [id number] Magnesium Sulfate/Dextrose (Magnesium Sulfate / D5w) 1 gm in 100 mls @ 200 mls/hr IV Q30M [facility] Stop: 06/22/20 04:41 Last Infusion: 06/22/20 07:36 Dose: 0 mls/hr Documented by: [id number] Admin: 06/22/20 05:15 Dose: 100 mls/hr Documented by: [id number] Infusion: 06/22/20 05:00 Dose: 0 mls/hr Documented by: [id number] Admin: 06/22/20 03:55 Dose: 200 mls/hr Documented by: [id number] Critical Care Time I have personally spent greater than 30 minutes of critical care time in the direct management of this patient. This includes bedside care, interpretation of diagnostic studies, and testing, discussion with consultants, patient, and family members, and other required patient management activities. This 30 minutes is in excess of all separately billable procedures. Medical Decision Making Differential Diagnosis Infection, dehydration, metabolic abnormality, hypo/hyperglycemia, electrolyte disturbance, anemia, hypoxia, cardiac sources, intracerebral event, toxicologic, neurologic, as well as other pathologies. Medical Records Attestation: I reviewed the patient's medical records. Home Medications Current Medication List: was personally reviewed by me Laboratory Data Attestation: I reviewed the patient's lab results. Result diagrams: 06/22/20 15:51 06/22/20 03:53 Lab Results 06/22/20 06/22/20 06/22/20 Range/Units 03:53 03:53 03:53 WBC 12.38 H (4.8-10.8) K/uL RBC 3.35 L (4.2-5.4) M/uL Hgb 7.4 L (12.0-16.0) g/dL Hct 25.4 L (37-47) % MCV 75.8 L (80-100) fL MCH 22.1 L (25-34) pg MCHC 29.1 L (32-36) g/dL RDW Std Deviation 44.2 (36.4-46.3) fL RDW Coeff of Paco 15.9 H (11.5-14.5) % Plt Count 354 (130-400) K/uL MPV 9.7 (7.4-10.4) fL Immature Gran % (Auto) 0.2 % Neut % (Auto) 75.8 % Lymph % (Auto) 12.2 % [place]iple[place] % (Auto) 11.4 % Eos % (Auto) 0.2 % Baso % (Auto) 0.2 % Neut # (Auto) 9.38 H (1.4-6.5) K/uL Lymph # (Auto) 1.51 (1.2-3.4) K/uL [place] # (Auto) 1.41 H (0.11-0.59) K/uL Eos # (Auto) 0.03 (0-0.5) K/uL Baso # (Auto) 0.02 (0-0.2) K/uL Immature Gran # (Auto) 0.03 H (0.00-0.02) K/uL Polychromasia 1+ Hypochromasia Present PT 12.9 H (9.0-12.0) Seconds INR 1.3 H (0.9-1.1) APTT 33.8 H (21.0-31.0) Seconds PTT Ratio 1.3 Sodium 140 (136-145) mmol/L Potassium 4.3 (3.5-5.1) mmol/L Chloride 107 (98-107) mmol/L Carbon Dioxide 29 (21-32) mmol/L Anion Gap 4.0 (3-11) BUN 24 H (7-18) mg/dl Creatinine 1.11 (0.6-1.2) mg/dl Est Cr Clr Drug Dosing 33.3 ml/min Est GFR ( Amer) 51.3 Est GFR (Non-Af Amer) 44.3 BUN/Creatinine Ratio 21.9 H (10-20) Glucose 151 H (70-99) mg/dl Calcium 9.7 (8.5-10.1) mg/dl Total Bilirubin 0.6 (0.2-1) mg/dl AST 14 L (15-37) U/L ALT 14 (12-78) U/L Alkaline Phosphatase 51 (45-117) U/L Total Creatine Kinase 272 H (26-192) U/L CK-MB (CK-2) 1.9 (0.5-3.6) ng/ml CK/CKMB % Calc 0.7 (0-3.0) Troponin I < 0.015 (0-0.045) ng/ml Total Protein 7.0 (6.4-8.2) gm/dl Albumin 3.3 L (3.4-5.0) gm/dl Globulin 3.7 (2.5-4.0) gm/dl Albumin/Globulin Ratio 0.9 (0.9-2) Lipase 87 (73-393) U/L Blood Type Antibody Screen Crossmatch 06/22/20 Range/Units 04:34 WBC (4.8-10.8) K/uL RBC (4.2-5.4) M/uL Hgb (12.0-16.0) g/dL Hct (37-47) % MCV (80-100) fL MCH (25-34) pg MCHC (32-36) g/dL RDW Std Deviation (36.4-46.3) fL RDW Coeff of Paco (11.5-14.5) % Plt Count (130-400) K/uL MPV (7.4-10.4) fL Immature Gran % (Auto) % Neut % (Auto) % Lymph % (Auto) % [place] % (Auto) % Eos % (Auto) % Baso % (Auto) % Neut # (Auto) (1.4-6.5) K/uL Lymph # (Auto) (1.2-3.4) K/uL [place] # (Auto) (0.11-0.59) K/uL Eos # (Auto) (0-0.5) K/uL Baso # (Auto) (0-0.2) K/uL Immature Gran # (Auto) (0.00-0.02) K/uL Polychromasia Hypochromasia PT (9.0-12.0) Seconds INR (0.9-1.1) APTT (21.0-31.0) Seconds PTT Ratio Sodium (136-145) mmol/L Potassium (3.5-5.1) mmol/L Chloride (98-107) mmol/L Carbon Dioxide (21-32) mmol/L Anion Gap (3-11) BUN (7-18) mg/dl Creatinine (0.6-1.2) mg/dl Est Cr Clr Drug Dosing ml/min Est GFR ( Amer) Est GFR (Non-Af Amer) BUN/Creatinine Ratio (10-20) Glucose (70-99) mg/dl Calcium (8.5-10.1) mg/dl Total Bilirubin (0.2-1) mg/dl AST (15-37) U/L ALT (12-78) U/L Alkaline Phosphatase (45-117) U/L Total Creatine Kinase (26-192) U/L CK-MB (CK-2) (0.5-3.6) ng/ml CK/CKMB % Calc (0-3.0) Troponin I (0-0.045) ng/ml Total Protein (6.4-8.2) gm/dl Albumin (3.4-5.0) gm/dl Globulin (2.5-4.0) gm/dl Albumin/Globulin Ratio (0.9-2) Lipase (73-393) U/L Blood Type A Positive Antibody Screen NEGATIVE Crossmatch See Detail Imaging Data Attestation: I personally reviewed and interpreted this imaging study as follows: My Impression: 1 view of the chest was interpreted by me shows no evidence of pneumonia congestion or pneumothorax there are old shoulder arthroplasties. ECG Data Attestation: I personally reviewed and interpreted this ECG as follows: Indication: + weakness Rate (beats per minute): 133 Rhythm: + atrial fibrillation (with RVR) ECG Intervals/blocks: + Normal QT-c (467) ECG [place]: + Normal ECG ST segments: no ST depression and no ST elevation Comparison ECG Date: from (06/02/2020) Change: the following changes noted (afib has replaced NSR) MDM Narrative Patient was seen and evaluated as above in room A12. Review was performed of nursing notes and vital signs. I did review pertinent previous visits and patient history. After obtaining a thorough history and physical examination the above work up was performed. This is an 89-year-old female who presents emergency department with A. fib with RVR. The patient is normally in a normal sinus rhythm. She stopped taking her Xarelto for 3 days for her surgery. Her hemoglobin here was found to be 7. Based on this the patient was typed and screened and crossed for 1 unit of packed red blood cells. She is heme negative on physical examination. I did discuss her case with the hospitalist service who did agree to meet the patient. The patient was given 4 g of magnesium for her A. fib with RVR and also IV doses of Lopressor. An order was placed for continuous cardiac monitoring. The monitor shows a rate of 100 with A fib rhythm. The patient was evaluated during a period of high volume and high acuity while the hospital was at overcapacity during the global COVID-19 pandemic, and that diagnosis was suspected/considered upon their initial presentation. Their evaluation, treatment and testing was consistent with current guidelines for patients who present with complaints or symptoms that may be related to COVID- 19. Impression & Plan Atrial fibrillation with rapid ventricular response, Anemia Discharge Plan Visit Data Chief Complaint: Arrhythmia/Palpitations Stated Complaint: PALPITATIONS ED Provider: Jayden Davila Discharge Problem: Atrial fibrillation with rapid ventricular response, Anemia Patient Disposition: Admitted As Inpatient Discharge Instructions Interventions: ED Discharge Assessment Last Done: 06/22/20 05:35
[2020-06-22 04:39] LABS: Hypochromasia Present; Polychromasia 1+
--- NOTE | 2020-06-22 05:13 | History & Physical Report ---
Date of Service June 22, 2020 Assessment & Plan (1) Atrial fibrillation with rapid ventricular response: 89-year-old female past medical history significant for DM 2, A. fib on chronic Xarelto therapy, HTN, HLD, DCIS s/p mastectomy, right posterior tibial tendon tear s/p repair on 06/20/2020 admitted for symptomatic anemia and A. fib with RVR. A. fib with RVR: Patient on arrival with heart rate in 130s, down to 90s after receiving Lopressor 5 mg IV x1 as well as starting infusion of PRBCs. Was recommended to be on amiodarone 200 mg daily in the outpatient setting, however refused secondary to desire not to be on medications. Had a conversation with the patient regarding risks/benefits, and will start amiodarone 200 mg daily scheduled. Lopressor 5 mg IV as needed HR > 110. Holding Xarelto given symptomatic anemia. Symptomatic anemia: Patient has a history of anemia, with baseline seemingly in the 910 range. On day of surgery 06/20/2020 patient was noted to have a hemoglobin of 7.8. Today patient symptomatic with A. fib with RVR with a hemoglobin of 7.4. We will transfuse 2U PRBCs. Recheck H/H in the afternoon. DM2: Patient not on any medications at home. BSG 150s on admission. Defer to PCP regarding medication control. SSI while admitted. HTN: Patient is on several medications at home, however due to initial presentation and BP 100/60s have held home medications. Can add as tolerated. HLD: Continue home atorvastatin. Code Status: Full Code FEN/GI: Heart Healthy, DM2 DVT ppx: SCDs, hold Xarelto Dispo: PCU for continuous cardiac monitoring, 2u PRBCs (2) Symptomatic anemia: (3) Posterior tibial tendon dysfunction (PTTD) of right lower extremity: (4) Paroxysmal atrial fibrillation: (5) Anemia: (6) Type 2 diabetes mellitus: (7) Hypertension: (8) Dyslipidemia: History of Present Illness Chief Complaint: palpitations Primary Care Provider: Giana Downey MD Palpitations 89-year-old female past medical history significant for paroxysmal A. fib currently not on medications, anemia, DM 2, HTN, HLD, DCIS s/p mastectomy, right posterior tibial tendon tear s/p repair on 06/20/2020 presented to the ER for palpitations that awoke her from sleep at around 1:30 AM this morning. Of note, she does have amiodarone 200 mg as needed at home, but she did not take this medication prior to arrival. She reports that she was supposed to take amiodarone 200 mg daily, however due to "not really wanting to take medications that have side effects like that" she was prescribed on a as needed basis. Also of note, 2 days ago she underwent right posterior tibial tendon repair. At that time her hemoglobin was noted to be 7.8. She is on chronic Xarelto therapy for her A. fib, which she just resumed yesterday cheri padilla. In the ER patient was found to have HR 133, EKG showed A. fib with RVR. She was given Lopressor 5 mg IV x1 prior to return of lab work. CBC showed hemoglobin of 7.4, WBC 12.38, MCV 75.8. Patient was consented for blood, ordered a total of 2 units. On my interview patient denies chest pain, sensation of palpations, shortness of breath, dizziness, headache, abdominal pain, recent fevers or chills. She does report some RLE pain however this is not changed since her surgery. At time of my interview, patient's heart rate was 105. Allergies Allergy/AdvReac Type Severity Reaction Status Date / Time phenobarbital Allergy Intermediate hives Verified 06/20/20 09:08 amlodipine Allergy Unknown Unknown Verified 06/20/20 09:08 benazepril Allergy Unknown Unknown Verified 06/20/20 09:08 enalapril Allergy Unknown Unknown Verified 06/20/20 09:08 lisinopril Allergy Unknown Unknown Verified 06/20/20 09:08 simvastatin Allergy Unknown Unknown Verified 06/20/20 09:08 spironolactone Allergy Unknown Unknown Verified 06/20/20 09:08 codeine AdvReac Mild headache, Verified 06/20/20 09:08 N/V hydrocodone AdvReac Mild N/V Verified 06/20/20 09:08 tramadol AdvReac Mild nausea Verified 06/20/20 09:08 ciprofloxacin AdvReac Unknown dizziness Verified 06/16/20 11:26 metoprolol AdvReac Unknown dizziness, Verified 06/16/20 11:26 depression Home Medications Medication Instructions Recorded Confirmed Type cholecalciferol (vitamin D3) 2,000 unit PO QAM 11/13/18 02/07/21 History [Vitamin D3] famotidine 20 mg PO QAM 03/28/18 06/22/20 History magnesium chloride [Mag 64] 64 mg PO QAM 03/28/18 06/22/20 History biotin 5 mg capsule 5 mg PO QAM cap 05/29/19 06/22/20 History candesartan 32 mg PO QAM 12/23/19 06/22/20 History fluticasone propionate [Flonase 2 sprays INTRANASAL DAILY PRN 12/23/19 06/22/20 History Allergy Relief] diclofenac sodium 1 % gel topical 2 g TOPICAL HS 12/31/19 06/22/20 History kit atorvastatin 10 mg PO PM 02/01/20 06/22/20 History clonidine HCl 0.1 mg tablet 0.1 mg PO BID #180 tab 02/19/20 06/22/20 Rx acetaminophen [Tylenol Extra 1,000 mg PO Q6H PRN 03/19/20 06/22/20 History Strength] felodipine 5 mg PO BID 03/19/20 06/22/20 History triamterene 37.5 1 cap PO QAM #90 cap 03/25/20 06/22/20 Rx mg-hydrochlorothiazide 25 mg capsule lorazepam 0.5 mg tablet 0.5 mg PO DAILY PRN #20 tab 05/27/20 06/22/20 Rx nebivolol 20 mg tablet 20 mg PO QAM #90 tab 05/27/20 06/22/20 Rx Xarelto 20 mg PO PM #0 tab 06/20/20 06/22/20 Rx amiodarone 200 mg PO DAILY PRN 06/20/20 06/22/20 History oxycodone-acetaminophen [Percocet] 1 tab PO Q4H PRN #20 tab 06/20/20 06/22/20 Rx Past Med/Surg History Medical History Anemia no known hx blood transfusion Breast cancer (02/08/17) hx XRT, s/p right breast lumpectomy (2010), right breast mastectomy and sentinel lymph node biopsy (2015) Chronic kidney disease DCIS (ductal carcinoma in situ) Dyslipidemia Gastroesophageal reflux disease Hemangioma larynx (under surveillance), patient states she was told that if intubation planned for future procedures- she has been told recommendation to be done at [facility] (not [facility])* Hypertension Limb alert care status RUE Osteoarthritis Paroxysmal A-fib on anticoagulation, h/o cardioversion x2, most recent 02/26/20 ([facility]), [place] [facility] [place]. Cal[place]xto) Type 2 diabetes mellitus diet controlled Surgical History H/O mastectomy right, left partial History of breast biopsy History of cardioversion 02/26/20 [facility] (Dr. Molina) History of carpal tunnel release of both wrists History of colonoscopy History of esophagogastroduodenoscopy (EGD) History of hysterectomy with unilateral oophorectomy History of left shoulder replacement History of lumpectomy of both breasts History of tonsillectomy Hx of difficult intubation Laryngeal hemangioma Patient was scheduled for right breast mastectomy 03/31/2015. Per anesthesia records, LMA placed was not able to seal. Converted to intubation with glide scope. Unable to see the glottis due to right-sided dark purple glottic mass. Ventilation with 2 hands and #9 oral airway. Patient woken up and case was canceled. Patient subsequently had left partial mastectomy with sentinel lymph node biopsy 04/13/17 ([facility]). Per [facility] records, Patient with supraglottic hemangioma causing difficult airway. "Endotracheal intubation was performed, a procedure that involves placement of a tube in your trachea using an instrument called a laryngoscope. When the procedure was performed, difficulty was encountered concerning your airway anatomy:your vocal cords could not be visualized due to a supraglottic hemangioma/mass obstructing the vocal cords. The mass also affected the ability of a facemask and Laryngeal mask airway to provide good ventilation. If you needed to have a breathing tube placed or any type of airway manipulation in the future, we strongly recommend you make the provider aware of this issue. For this particular surgery, we allowed you to emerge from general anesthesia with return to spontaneous ventilation with your back mildly elevated. We were able to complete the surgery with IV sedation with local anesthetic without any complications." S/P total knee replacement BL Family History Unknown Diabetes Hypertension Sister Malignant melanoma of skin Breast cancer Grandmother Breast cancer Family/Other Diabetes Melanoma Cancer Parkinson's disease Mother Stroke Other Family history non-contributory No family history of adverse response to anesthesia Denies family history of Ovarian cancer Prostate cancer Myocardial infarction Colorectal cancer Social History Smoking Status: Never smoker Second Hand Exposure: No; Hx Alcohol Use: No Hx Substance Use: No Preferred Language: Tristanian Communication Ability: Effective 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 Beliefs That Will Affect Care: None marital status: Current Living Situation: Spouse current occupational status: retired Other Information That Helps Us Care for You: No Feels Safe at Home: Yes Safety Concerns: Feels Safe At This Time caffeine: No Dental Care, Regularly: Yes Physical Activity Frequency: Does not Exercise Seatbelt Use: always Sunscreen Use: Yes (Sometimes) Assistive Devices: None Review of Systems Review of Systems: All systems reviewed & are unremarkable except as noted in HPI & below Constitutional: no fever, no chills and no malaise Respiratory: no cough and no dyspnea Cardiovascular: no chest pain, no palpitations and no edema Gastrointestinal: no abdominal pain, no constipation and no diarrhea/loose stools Genitourinary: no dysuria and no hematuria Physical Exam Constitutional: WD/WN, vitals as above Eyes: PERRL, conjunctivae normal, anicteric sclerae ENMT: external ear and nose normal, oropharynx normal Neck: normal visual inspection Respiratory: normal respiratory effort, lungs clear to auscultation Cardiovascular: Rate/Rhythm: + tachycardic and + irregularly irregular Heart Sounds: no murmur Extremities: no edema Gastrointestinal (Abdomen): normal bowel sounds, soft, nontender, no hepatosplenomegaly Musculoskeletal: no cyanosis or clubbing, extremities motor strength 5/5 Skin: no rashes, warm and dry Neurologic: AAOx3, normal speech. Bilateral UE, LE, and face without sensory or motor deficits. No tremor. Psychiatric: A+Ox3, euthymic affect Results & Data Results & Data ([facility]) Vital Signs (Past 12 Hours) Vital Signs Temp Pulse Pulse Resp BP BP Pulse Ox 06/22/20 04:10 119 H 18 121/71 100 06/22/20 04:05 88 L 06/22/20 03:58 135 H 104/57 L 06/22/20 03:44 93 06/22/20 03:33 37.1 C 133 H 18 115/75 93 Code Status & VTE Plan VTE Prophylaxis Plan VTE Prophylaxis will be ordered: Yes Supervising Physician Co-Signing Physician Notes Attending addendum: I have physically seen this patient, have supervised the medical residents activities, and agree with the H&P unless as otherwise noted. Assessment and Plan: Atrial fibrillation with RVR/hypertension- The patient will be admitted to telemetry for serial cardiac enzymes, serial EKG's, cardiac rhythm monitoring and a 2-D echocardiogram with Dopplers. Heart rate improved from 130s to low 100s after receiving Lopressor 5 mg IV from the ED In part likely secondary to physiologic stress of declining hemoglobin Continue amiodarone. Hold Candesartan, clonidine, felodipine, nebivolol and triamterene HCTZ. Will likely resume as blood pressure improves after transfusions Symptomatic anemia- Hemoglobin was 7.8 on 06/20, prior to surgery. Presently hemoglobin is 7.4. We will transfuse 2 units PRBCs, in particular also since patient has had Xarelto resumed. Hyperlipidemia- Continue atorvastatin 10 mg every evening Remaining orders and notations as noted Resident Activity Tracking Resident Involvement: Resident Care Provided Care Provided: Adult Hospital Medicine (1) Hypertension Hypertension type: unspecified Qualified Code(s): I10 - Essential (primary) hypertension
[2020-06-22] MEDS ORDERED: FLUTICASONE PROPIONATE NA SPR 16 GM BTL PRN (05:44)
[2020-06-22] MEDS ORDERED: LORazepam 0.5 MG TAB PO PRN (05:44)
[2020-06-22] MEDS ORDERED: ONDANSETRON INJ 2 MG/ML 2 ML VIAL IV PRN (05:44)
[2020-06-22] MEDS ORDERED: INFLUENZA ADMINISTRATION CHARGE ONE (06:09)
[2020-06-22] MEDS ORDERED: INFLUENZA VACCINE HIGH DOSE 65+ 0.7 ML SYR IM ONE (06:09)
[2020-06-22] MEDS ORDERED: GLUCAGON FOR INJ 1 MG VIAL SQ PRN (06:28)
[2020-06-22] MEDS ORDERED: DEXTROSE 50% 50 ML SYRINGE IV PRN (06:28)
[2020-06-22] MEDS ORDERED: GLUCOSE 40% GEL 15 GM TUBE PO PRN (06:28)
[2020-06-22] MEDS ORDERED: CARBOHYDRATES FOR HYPOGLYCEMIA PO PRN (06:28)
[2020-06-22] MEDS ORDERED: GLUCOSE 10 TABS/TUBE PO PRN (06:28)
[2020-06-22] MEDS: INSULIN ASPART 100 UNITS/ML 3 ML PEN SC SCH ×4 (07:45→20:39)
[2020-06-22] MEDS: ACETAMINOPHEN 500 MG TAB PO PRN ×2 (07:56→20:38)
[2020-06-22] MEDS: FAMOTIDINE 20 MG TAB PO SCH (08:55)
[2020-06-22] MEDS: AMIODARONE 200 MG TAB PO SCH (08:55)
--- NOTE | 2020-06-22 08:59 | XRay Report ---
XR chest 1V portable HISTORY: Atypical Chest Pain COMPARISON: Chest 05/31/2020. FINDINGS: No pneumothorax. No pleural effusions. No focal lung consolidations to suggest pneumonia. N o evidence for pulmonary edema. The heart remains borderline enlarged. Surgical clips within the righ t axilla. There is a left shoulder prosthesis. IMPRESSION: No significant change compared to the prior study. No acute process. ACT 112: Negative or not required by law. Electronically signed by: Kelton Vazquez M.D. 06/22/2020 8:57 AM
--- NOTE | 2020-06-22 10:43 | Orthopedic Consultation ---
Date of Consultation June 22, 2020 Assessment & Plan (1) Posterior tibial tendon dysfunction (PTTD) of right lower extremity: POD #2 1. Right posterior tibial tendon reconstruction with flexor digitorum longus tendon transfer. 2. Medialized and calcaneal osteotomy with screw fixation. 3. Lateral column lengthening of the calcaneus with allograft and plate with autograft. 4. Percutaneous tendo Achilles lengthening. 5. Local autograft harvest from the calcaneus. Nonweightbearing right lower extremity at all times. Splint to remain in place at all times over the next 2 weeks. PT/OT for gait training. Okay from an Ortho standpoint to restart Xarelto when medicine feels she is able to do so. Order already placed for rechecking hemoglobin after transfusion. Depending on her ability to ambulate nonweightbearing on the right lower extremity, she may require home with home health versus rehab versus prison facility. Thank you for the consultation. Will plan to keep 2-week follow-up as an outpatient. History of Present Illness Reason for Consultation: Right foot pain POD #2 from a right posterior tibialis tendon reconstruction with flexor digitorum longus transfer. Attending Physician: Cherry Zapien DO History of Present Illness This is a patient known to Dr. Lopez and myself who 2 days ago had undergone a right hindfoot reconstruction. She was discharged home postoperatively and instructed to restart her Xarelto on postop day #1. Last evening, she was having palpitations in her chest and felt that she was in A. fib. She was brought to the emergency room where an EKG confirmed A. fib with a rate in the 130s. She was treated and the rate improved and she was admitted. She currently is getting 2 units of PRBCs because of her hemoglobin at 7.4 upon discharge. She states she is feeling much better. She does have some pain within the right ankle and foot but has been maintaining nonweightbearing status on the side. Allergies Allergy/AdvReac Type Severity Reaction Status Date / Time phenobarbital Allergy Intermediate hives Verified 06/20/20 09:08 amlodipine Allergy Unknown Unknown Verified 06/20/20 09:08 benazepril Allergy Unknown Unknown Verified 06/20/20 09:08 enalapril Allergy Unknown Unknown Verified 06/20/20 09:08 lisinopril Allergy Unknown Unknown Verified 06/20/20 09:08 simvastatin Allergy Unknown Unknown Verified 06/20/20 09:08 spironolactone Allergy Unknown Unknown Verified 06/20/20 09:08 codeine AdvReac Mild headache, Verified 06/20/20 09:08 N/V hydrocodone AdvReac Mild N/V Verified 06/20/20 09:08 tramadol AdvReac Mild nausea Verified 06/20/20 09:08 ciprofloxacin AdvReac Unknown dizziness Verified 06/16/20 11:26 metoprolol AdvReac Unknown dizziness, Verified 06/16/20 11:26 depression Home Medications Medication Instructions Recorded Confirmed Type cholecalciferol (vitamin D3) 2,000 unit PO QAM 03/28/18 06/22/20 History [Vitamin D3] famotidine 20 mg PO QAM 03/28/18 06/22/20 History magnesium chloride [Mag 64] 64 mg PO QAM 03/28/18 06/22/20 History biotin 5 mg capsule 5 mg PO QAM cap 05/29/19 06/22/20 History candesartan 32 mg PO QAM 12/23/19 06/22/20 History fluticasone propionate [Flonase 2 sprays INTRANASAL DAILY PRN 12/23/19 06/22/20 History Allergy Relief] diclofenac sodium 1 % gel topical 2 g TOPICAL HS 12/31/19 06/22/20 History kit atorvastatin 10 mg PO PM 02/01/20 06/22/20 History clonidine HCl 0.1 mg tablet 0.1 mg PO BID #180 tab 02/19/20 06/22/20 Rx acetaminophen [Tylenol Extra 1,000 mg PO Q6H PRN 03/19/20 06/22/20 History Strength] felodipine 5 mg PO BID 03/19/20 06/22/20 History triamterene 37.5 1 cap PO QAM #90 cap 03/25/20 06/22/20 Rx mg-hydrochlorothiazide 25 mg capsule lorazepam 0.5 mg tablet 0.5 mg PO DAILY PRN #20 tab 05/27/20 06/22/20 Rx nebivolol 20 mg tablet 20 mg PO QAM #90 tab 05/27/20 06/22/20 Rx Xarelto 20 mg PO PM #0 tab 06/20/20 06/22/20 Rx amiodarone 200 mg PO DAILY PRN 06/20/20 06/22/20 History oxycodone-acetaminophen [Percocet] 1 tab PO Q4H PRN #20 tab 06/20/20 06/22/20 Rx Patient History Medical History Anemia no known hx blood transfusion Breast cancer (02/08/17) hx XRT, s/p right breast lumpectomy (2010), right breast mastectomy and sentinel lymph node biopsy (2015) Chronic kidney disease DCIS (ductal carcinoma in situ) Dyslipidemia Gastroesophageal reflux disease Hemangioma larynx (under surveillance), patient states she was told that if intubation planned for future procedures- she has been told recommendation to be done at [facility] (not [facility])* Hypertension Limb alert care status RUE Osteoarthritis Paroxysmal A-fib on anticoagulation, h/o cardioversion x2, most recent 02/26/20 ([facility]), [place] [facility] [place] (Dr. Calixto) Type 2 diabetes mellitus diet controlled Surgical History H/O mastectomy right, left partial History of breast biopsy History of cardioversion 02/26/20 [facility] (Dr. Molina) History of carpal tunnel release of both wrists History of colonoscopy History of esophagogastroduodenoscopy (EGD) History of hysterectomy with unilateral oophorectomy History of left shoulder replacement History of lumpectomy of both breasts History of tonsillectomy Hx of difficult intubation Laryngeal hemangioma Patient was scheduled for right breast mastectomy 03/31/2015. Per anesthesia records, LMA placed was not able to seal. Converted to intubation with glide scope. Unable to see the glottis due to right-sided dark purple glottic mass. Ventilation with 2 hands and #9 oral airway. Patient woken up and case was canceled. Patient subsequently had left partial mastectomy with sentinel lymph node biopsy 04/13/17 ([facility]). Per [facility] records, Patient with supraglottic hemangioma causing difficult airway. "Endotracheal intubation was performed, a procedure that involves placement of a tube in your trachea using an instrument called a laryngoscope. When the procedure was performed, difficulty was encountered concerning your airway anatomy:your vocal cords could not be visualized due to a supraglottic hemangioma/mass obstructing the vocal cords. The mass also affected the ability of a facemask and Laryngeal mask airway to provide good ventilation. If you needed to have a breathing tube placed or any type of airway manipulation in the future, we strongly recommend you make the provider aware of this issue. For this particular surgery, we allowed you to emerge from general anesthesia with return to spontaneous ventilation with your back mildly elevated. We were able to complete the surgery with IV sedation with local anesthetic without any complications." S/P total knee replacement BL Family History Unknown Diabetes Hypertension Sister Malignant melanoma of skin Breast cancer Grandmother Breast cancer Family/Other Diabetes Melanoma Cancer Parkinson's disease Mother Stroke Other Family history non-contributory No family history of adverse response to anesthesia Denies family history of Ovarian cancer Prostate cancer Myocardial infarction Colorectal cancer Social History Smoking Status: Never smoker Second Hand Exposure: No; Hx Alcohol Use: No Hx Substance Use: No Preferred Language: Yakut Communication Ability: Effective [employer]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 Cap refill <2 seconds. Toes are mobile.); no skin erythema Skin: no rashes, warm and dry Neurologic: normal touch/pain/proprioception (Sensation normal and intact right foot distally.) Psychiatric: A+Ox3, euthymic affect Speech: normal rate/rhythm/volume of speech Results & Data ([facility]) Vital Signs (Past 12 Hours) Vital Signs Temp Pulse Pulse Resp BP BP Pulse Ox 06/22/20 10:36 37.0 C 101 H 18 117/69 95 06/22/20 09:51 36.9 C 103 H 18 122/48 L 94 06/22/20 09:21 37.0 C 110 H 18 115/67 97 06/22/20 09:20 112 H 06/22/20 09:06 37.0 C 117 H 18 109/67 94 06/22/20 08:45 36.8 C 99 H 18 103/61 94 06/22/20 08:14 36.8 C 105 H 18 119/74 98 06/22/20 06:04 36.7 C 98 H 18 101/61 94 06/22/20 05:24 106 H 18 114/75 99 06/22/20 04:10 119 H 18 121/71 100 06/22/20 04:05 88 L 06/22/20 03:58 135 H 104/57 L 06/22/20 03:44 93 06/22/20 03:33 37.1 C 133 H 18 115/75 93 Laboratory Results Laboratory Tests 06/22/20 06/22/20 03:53 03:53 WBC 12.38 H Hgb 7.4 L Hct 25.4 L Plt Count 354 INR 1.3 H
--- NOTE | 2020-06-22 11:43 | Electrocardiogram Report ---
Test Reason : Blood Pressure : / mmHG Vent. Rate : 133 BPM Atrial Rate : 122 BPM P-R Int : 000 ms QRS Dur : 094 ms QT Int : 314 ms P-R-T Axes : 000 -03 060 degrees QTc Int : 467 ms Atrial fibrillation with rapid ventricular response Abnormal ECG When compared with ECG of 02-JUN-2020 13:14, Atrial fibrillation has replaced Sinus rhythm Vent. rate has increased BY 70 BPM Nonspecific T wave abnormality now evident in Lateral leads Confirmed by Rene Farley ([id number]) on 06/22/2020 11:43:02 AM Referred By: REFERRED SELF Confirmed By:Rene Farley
[2020-06-22] MEDS: POLYETHYLENE (MIRALAX) 17 GM PACK PO PRN (12:25)
[2020-06-22] MEDS: oxyCODONE/ACETAMINOPHEN 5mg/325mg TAB PO PRN (14:15)
[2020-06-22] MEDS: ASCORBIC ACID 500 MG TAB PO SCH (14:15)
[2020-06-22] MEDS: SENNA 8.6 MG TAB PO SCH (14:16)
[2020-06-22] MEDS: FERROUS SULFATE 325 MG TAB PO SCH (14:16)
--- NOTE | 2020-06-22 15:11 | Hospitalist Progress Note ---
Date of Service June 22, 2020 Assessment & Plan (1) Symptomatic anemia: Patient has a history of anemia, with baseline seemingly in the 910 range. On day of surgery 06/20/2020 patient was noted to have a hemoglobin of 7.8. On admission, patient symptomatic with A. fib with RVR with a hemoglobin of 7.4. We will transfuse 2U PRBCs. Recheck H/H in the afternoon after transfusion and again in AM Iron noted low with borderline high TIBC and low MCV Started QD iron with vitamin C If tolerating after a few weeks, can increase to BID Pt denies hx of iron use in the past (2) Posterior tibial tendon dysfunction (PTTD) of right lower extremity: Ortho c/s given OR on 06/20 Planning for PT/OT (3) Chronic anticoagulation: (4) Atrial fibrillation with rapid ventricular response: Patient on arrival with heart rate in 130s, down to 90s after receiving Lopressor 5 mg IV x1 as well as starting infusion of PRBCs. Was recommended to be on amiodarone 200 mg daily in the outpatient setting, however refused secondary to desire not to be on medications. Started QD on admission Lopressor 5 mg IV as needed HR > 110. Holding Xarelto given symptomatic anemia Trop neg Pt with hx of cardioversion with Dr. Molina 02/2020. She states she believes she has been in NSR since that time (5) Type 2 diabetes mellitus: Patient not on any medications at home. BSG 150s on admission. Defer to PCP regarding medication control. SSI while admitted. (6) Hypertension: Patient is on several medications at home, however due to initial p resentation and BP 100/60s have held home medications. Can add as tolerated. (7) Gastroesophageal reflux disease: continue home meds (8) Dyslipidemia: Continue home atorvastatin. (9) DVT prophylaxis: SCDs, hold Xarelto Admission and Anticipated Discharge Date Admission Date: June 22, 2020 Subjective Pt seen this AM, shortly after blood was started. She still feels some heart racing, but feels overall better than [employer]. She has been tolerating PO without issue. Pt denies fever, SOB, chest pain, abd pain, n/v. She does note some LE pain and swelling related to recent OR. She states she has had issues with percocet use in the past and would like a stool softener. Review of Systems Review of Systems: Pertinent positives and negatives reviewed in HPI--all others negative Physical Exam Constitutional: WD/WN, vitals as above Eyes: normal visual power by confrontation and + anicteric sclerae Neck: normal visual inspection and trachea midline Respiratory: normal respiratory effort, lungs clear to auscultation Cardiovascular: Rate/Rhythm: regular rate and regular rhythm Extremities: + edema (R LE) Gastrointestinal (Abdomen): Inspection/Auscultation: abdomen not distended Percussion/Palpation: abdomen soft; abdomen nontender Musculoskeletal: Head/Neck/Chest: normocephalic and head atraumatic peripheral pulses intact Skin: no rashes, warm and dry + pallor Neurologic: awake; not confused Speech / Cognition: normal speech Psychiatric: A+Ox3, euthymic affect Results & Data Results & Data ([facility]) Vital Signs (Past 12 Hours) Vital Signs Temp Pulse Pulse Resp BP BP Pulse Ox 06/22/20 14:54 102 H 06/22/20 13:57 37.2 C 102 H 18 137/75 93 06/22/20 12:57 37.1 C 100 H 18 126/76 94 06/22/20 12:42 37.1 C 100 H 18 93/58 L 93 06/22/20 12:27 37.1 C 103 H 18 93/58 L 95 06/22/20 12:19 36.8 C 121 H 18 111/67 97 06/22/20 12:13 37.2 C 101 H 18 109/68 95 06/22/20 11:57 36.8 C 111 H 18 96/67 L 95 06/22/20 10:36 37.0 C 101 H 18 117/69 95 06/22/20 09:51 36.9 C 103 H 18 122/48 L 94 06/22/20 09:21 37.0 C 110 H 18 115/67 97 06/22/20 09:20 112 H 06/22/20 09:06 37.0 C 117 H 18 109/67 94 06/22/20 08:45 36.8 C 99 H 18 103/61 94 06/22/20 08:14 36.8 C 105 H 18 119/74 98 06/22/20 06:04 36.7 C 98 H 18 101/61 94 06/22/20 05:24 106 H 18 114/75 99 06/22/20 04:10 119 H 18 121/71 100 06/22/20 04:05 88 L 06/22/20 03:58 135 H 104/57 L 06/22/20 03:44 93 06/22/20 03:33 37.1 C 133 H 18 115/75 93 PG Care Time/CCT Total # of Minutes Spent Total Time Spent with Patient: Total time spent is greater than 50% in coordination of care (as documented) at patient's floor/unit and/or counseling patient: Coding Level of Care Code 40938 Subseq Obs Care Lvl 3 Diagnoses Symptomatic anemia D64.9 Posterior tibial tendon dysfunction (PTTD) of right lower extremity M76.821 Chronic anticoagulation Z79.01 Atrial fibrillation with rapid ventricular response I48.91 Type 2 diabetes mellitus E11.9 Hypertension I10 Hypertension type: unspecified Gastroesophageal reflux disease K21.9 Dyslipidemia E78.5 DVT prophylaxis Z29.9 (1) Hypertension Hypertension type: unspecified Qualified Code(s): I10 - Essential (primary) hypertension
[2020-06-22 15:59] LABS: Hematocrit (blood only) 28.5 % (37-47); Hemoglobin 8.9 g/dL (12.0-16.0)
[2020-06-22] MEDS: ATORVASTATIN 10 MG TAB PO SCH (20:38)
[2020-06-22] MEDS: DICLOFENAC SOD 1% GEL 100 GM TUBE EXT SCH (20:43)
--- NOTE | 2020-06-23 05:23 | Billing Data ---
Date of Service June 23, 2020 Coding Level of Care Code 11612 OBS Care - Level 3
[2020-06-23 06:55] LABS: Basophils # (auto) 0.07 K/uL (0-0.2); Basophils % (auto) 0.5 %; Eosinophils # (auto) 0.11 K/uL (0-0.5); Eosinophils % (auto) 0.8 %; Hematocrit (blood only) 30.9 % (37-47); Hemoglobin 9.7 g/dL (12.0-16.0); Immature Granulocytes # (auto) 0.02 K/uL (0.00-0.02); Immature Granulocytes % (auto) 0.2 %; Lymphocytes # (auto) 1.64 K/uL (1.2-3.4); Lymphocytes % (auto) 12.5 %; Mean Corpuscular Hemoglobin 24.4 pg (25-34); Mean Corpuscular Hgb Conc 31.4 g/dL (32-36); Mean Corpuscular Volume 77.8 fL (80-100); Mean Platelet Volume 9.9 fL (7.4-10.4); Monocytes # (auto) 1.56 K/uL (0.11-0.59); Monocytes % (auto) 11.9 %; Neutrophils # (auto) 9.68 K/uL (1.4-6.5); Neutrophils % (auto) 74.1 %; Platelet Count 340 K/uL (130-400); RDW Standard Deviation 48.4 fL (36.4-46.3); Red Blood Count 3.97 M/uL (4.2-5.4); White Blood Count 13.08 K/uL (4.8-10.8)
[2020-06-23] MEDS: SENNA 8.6 MG TAB PO SCH (07:31)
[2020-06-23] MEDS: AMIODARONE 200 MG TAB PO SCH (07:31)
[2020-06-23] MEDS: ASCORBIC ACID 500 MG TAB PO SCH (07:32)
[2020-06-23] MEDS: FAMOTIDINE 20 MG TAB PO SCH (07:32)
[2020-06-23] MEDS: FERROUS SULFATE 325 MG TAB PO SCH (07:32)
[2020-06-23] MEDS: POLYETHYLENE (MIRALAX) 17 GM PACK PO PRN (07:43)
[2020-06-23] MEDS: INSULIN ASPART 100 UNITS/ML 3 ML PEN SC SCH ×4 (07:44→20:20)
[2020-06-23] MEDS: oxyCODONE/ACETAMINOPHEN 5mg/325mg TAB PO PRN (09:50)
--- NOTE | 2020-06-23 14:24 | Hospitalist Progress Note ---
Date of Service June 23, 2020 Assessment & Plan (1) Atrial fibrillation with rapid ventricular response: Patient on arrival with heart rate in 130s, down to 90s after receiving Lopressor 5 mg IV x1 as well as starting infusion of PRBCs. Was recommended to be on amiodarone 200 mg daily in the outpatient setting, however refused secondary to desire not to be on medications. Started QD on admission Lopressor 5 mg IV as needed HR > 110. Holding Xarelto given symptomatic anemia Trop neg Pt with hx of cardioversion with Dr. Molina 02/2020. She states she believes she has been in NSR since that time until admission (2) Symptomatic anemia: Patient has a history of anemia, with baseline seemingly in the 910 range. On day of surgery 06/20/2020 patient was noted to have a hemoglobin of 7.8. On admission, patient symptomatic with A. fib with RVR with a hemoglobin of 7.4. s/p 2U PRBCs on 06/22. Recheck H/H has continued to improve Iron noted low with borderline high TIBC and low MCV Started QD iron with vitamin C If tolerating after a few weeks, can increase to BID Pt denies hx of iron use in the past If Hb is stable tomorrow, can resume xarelto (3) Posterior tibial tendon dysfunction (PTTD) of right lower extremity: Ortho c/s given OR on 06/20 Planning for PT/OT (4) Paroxysmal atrial fibrillation: (5) Anemia: (6) Type 2 diabetes mellitus: Patient not on any medications at home. BSG 150s on admission. Defer to PCP regarding medication control. SSI while admitted. (7) Hypertension: Patient is on several medications at home, however due to initial presentation and BP 100/60s have held home medications. Can add as tolerated. (8) Dyslipidemia: Continue home atorvastatin. Pt awaiting auth for rehab Admission and Anticipated Discharge Date Admission Date: June 22, 2020 Subjective Pt feels much better today. Still with occasional palpitations, but much better. Tolerating PO. Pt denies fever, SOB, chest pain, abd pain, n/v/c/d, LE pain or swelling. Pt was seen by PT and felt she would benefit from rehab. Pt agrees with this and is planning for d/c to rehab. Review of Systems Review of Systems: Pertinent positives and negatives reviewed in HPI--all others negative Physical Exam Constitutional: WD/WN, vitals as above Eyes: normal visual power by confrontation and + anicteric sclerae Neck: normal visual inspection and trachea midline Respiratory: normal respiratory effort, lungs clear to auscultation Cardiovascular: Rate/Rhythm: regular rate and regular rhythm Extremities: + edema (R LE) Gastrointestinal (Abdomen): Inspection/Auscultation: abdomen not distended Percussion/Palpation: abdomen soft; abdomen nontender Musculoskeletal: Head/Neck/Chest: normocephalic and head atraumatic Skin: no rashes, warm and dry + pallor (much improved) Neurologic: awake; not confused Speech / Cognition: normal speech Psychiatric: A+Ox3, euthymic affect Results & Data Results & Data ([facility]) Vital Signs (Past 12 Hours) Vital Signs Temp Pulse Pulse Resp BP Pulse Ox Pulse Ox 06/23/20 12:08 36.8 C 120 H 17 91/57 L 96 06/23/20 08:27 96 06/23/20 08:00 111 H 06/23/20 07:59 36.8 C 121 H 18 102/69 96 06/23/20 03:45 37.0 C 100 H 19 135/78 94 PG Care Time/CCT Total # of Minutes Spent Total Time Spent with Patient: Total time spent is greater than 50% in coordination of care (as documented) at patient's floor/unit and/or counseling patient: Coding Level of Care Code 57675 Subseq Hosp Care Lvl 3 Diagnoses Atrial fibrillation with rapid ventricular response I48.91 Symptomatic anemia D64.9 Posterior tibial tendon dysfunction (PTTD) of right lower extremity M76.821 Paroxysmal atrial fibrillation I48.0 Anemia D64.9 Type 2 diabetes mellitus E11.9 Hypertension I10 Hypertension type: unspecified Dyslipidemia E78.5 (1) Hypertension Hypertension type: unspecified Qualified Code(s): I10 - Essential (primary) hypertension
[2020-06-23] MEDS: bisacodyL 10 MG SUPP PR STA ×2 (17:50→17:53)
[2020-06-23] MEDS: bisacodyL 10 MG SUPP PR ONE ×2 (17:51→17:52)
[2020-06-23] MEDS: ACETAMINOPHEN 500 MG TAB PO PRN (19:54)
[2020-06-23] MEDS: ATORVASTATIN 10 MG TAB PO SCH (19:55)
[2020-06-23] MEDS: DICLOFENAC SOD 1% GEL 100 GM TUBE EXT SCH (19:55)
[2020-06-24] MEDS: ACETAMINOPHEN 500 MG TAB PO PRN ×3 (06:07→21:08)
--- NOTE | 2020-06-24 08:00 | Hospitalist Progress Note ---
Date of Service June 24, 2020 Assessment & Plan (1) Atrial fibrillation with rapid ventricular response: Patient on arrival with heart rate in 130s, down to 90s after receiving Lopressor 5 mg IV x1 as well as starting infusion of PRBCs. Was recommended to be on amiodarone 200 mg daily in the outpatient setting, however refused secondary to desire not to be on medications. Started QD on admission Lopressor 5 mg IV as needed HR > 110. Holding Xarelto given symptomatic anemia Trop neg Pt with hx of cardioversion with Dr. Molina 02/2020. She states she believes she has been in NSR since that time until admission 2- rate controlled on amio and toprol restarted xarelto (2) Symptomatic anemia: Patient has a history of anemia, with baseline seemingly in the 910 range. On day of surgery 06/20/2020 patient was noted to have a hemoglobin of 7.8. On admission, patient symptomatic with A. fib with RVR with a hemoglobin of 7.4. s/p 2U PRBCs on 06/22. Recheck H/H has continued to improve Iron noted low with borderline high TIBC and low MCV Started QD iron with vitamin C If tolerating after a few weeks, can increase to BID Pt denies hx of iron use in the past If Hb is stable tomorrow, can resume xarelto 2-9 restarted xarelto (3) Posterior tibial tendon dysfunction (PTTD) of right lower extremity: Ortho c/s given OR on 06/20 Planning for PT/OT 2- was denied from [facility], so will likely need SNF (4) Paroxysmal atrial fibrillation: (5) Anemia: (6) Type 2 diabetes mellitus: Patient not on any medications at home. BSG 150s on admission. Defer to PCP regarding medication control. SSI while admitted. (7) Hypertension: Patient is on several medications at home, however due to initial presentation and BP 100/60s have held home medications. Can add as tolerated. (8) Dyslipidemia: Continue home atorvastatin. Pt awaiting [facility] for rehab Admission and Anticipated Discharge Date Admission Date: June 22, 2020 Subjective Patient reports persistent foot pain, worse when trying to stand. She was able to work with PT while wearing a shoe in place of the boot. Tylenol helps the pain. She denies palpitations, shortness of breath, or any issues related to afib. She is not having melena or hematochezia. She is eating well. She had a bowel movement with suppository. Review of Systems Constitutional: no fever, no chills, no fatigue, no weakness, no anorexia, no weight loss and no weight gain Ear, Nose, Mouth, Throat: no nasal congestion, no sore throat and no dysphagia Respiratory: no cough and no dyspnea Cardiovascular: no chest pain, no dyspnea on exertion, no orthopnea and no palpitations Gastrointestinal: no abdominal pain, no nausea, no vomiting, no hematemesis, no dysphagia, no constipation, no diarrhea/loose stools, no blood in stools and no melena Genitourinary: no dysuria, no urinary frequency, no hematuria and no flank pain Musculoskeletal: no back pain, no joint pain, no myalgia and no muscle weakness right foot pain Integumentary: no rash, no lesions, no skin ulcer, no erythema, no dry skin and no pruritus Neurologic: no falls, no localized weakness, no generalized weakness, no numbness, no paresthesia, no tremor(s) and no headache(s) Psychiatric: no depression, no suicidal ideation, no homicidal ideation and no anxiety Endocrine: no cold intolerance and no heat intolerance Hematologic / Lymphatic: no easy bleeding and no easy bruising Physical Exam Constitutional: well developed and well nourished; no acute distress Eyes: PERRL, conjunctivae normal, anicteric sclerae ENMT: Mouth: oral mucous membranes not dry Respiratory: normal respiratory effort; no respiratory distress and no labored breathing Auscultation: lungs clear to auscultation bilaterally; no crackles, no rales, no rhonchi and no wheezes Cardiovascular: Rate/Rhythm: regular rate and regular rhythm Heart Sounds: no murmur and no cardiac rub Vessels: normal peripheral pulses and radial pulses present; no JVD Extremities: + edema Gastrointestinal (Abdomen): Inspection/Auscultation: abdomen normal to inspection and normal bowel sounds; abdomen not distended Percussion/Palpation: abdomen soft; abdomen nontender, no guarding, abdomen not rigid and no hepatosplenomegaly Musculoskeletal: Head/Neck/Chest: normocephalic and head atraumatic Spine: no cervical spinal tenderness, no cervical muscular tenderness, no thoracic spinal tenderness and no lumbar spinal tenderness right foot is in a boot Skin: no rashes, warm and dry Neurologic: CN's II-XI intact bilaterally and moves all extremities Motor/Sensory: no tremor and no sensory deficit Psychiatric: Orientation: alert, oriented to person, oriented to place and oriented to time Apperance: appropriately groomed; not disheveled Affect: euthymic affect; no anxious affect and no tearful affect Genitourinary: no CVA tenderness no Snyder catheter Results & Data Results & Data ([facility]) Vital Signs (Past 12 Hours) Vital Signs Temp Pulse Pulse Resp BP Pulse Ox 06/24/20 04:04 36.6 C 72 18 171/66 H 95 06/23/20 23:16 37 C 73 18 121/63 93 06/23/20 23:00 70 06/23/20 20:00 36.8 C 76 18 130/65 95 Laboratory Results Abnormal lab results 06/23/20 06/23/20 06/23/20 Range/Units 11:32 16:28 20:07 POC Glucose 142 H 156 H 151 H (70-99) mg/dl 06/24/20 Range/Units 07:38 POC Glucose 118 H (70-99) mg/dl Medications Administered Current Inpatient Medications Acetaminophen (Acetaminophen 500 Mg Tab) 1,000 mg PO Q8H PRN PRN Reason: Pain Stop: 07/22/20 05:54 Last Admin: 06/24/20 06:07 Dose: 500 mg Documented by: Amiodarone HCl (Amiodarone 200 Mg Tab) 200 mg PO DAILY TY Stop: 07/22/20 08:59 Last Admin: 06/23/20 07:31 Dose: 200 mg Documented by: Ascorbic Acid (Ascorbic Acid 500 Mg Tab) 500 mg PO QAM TY Stop: 07/22/20 12:59 Last Admin: 06/23/20 07:32 Dose: 500 mg Documented by: Atorvastatin Calcium (Atorvastatin 10 Mg Tab) 10 mg PO PM TY Stop: 07/22/20 20:59 Last Admin: 06/23/20 19:55 Dose: 10 mg Documented by: Dextrose (Dextrose 50% 50 Ml Syringe) 25 - 50 ml IV UD PRN; Protocol PRN Reason: Hypoglycemia Protocol Stop: 07/22/20 06:27 Diclofenac Sodium (Diclofenac Sod 1% Gel 100 Gm Tube) 2 gm EXT HS TY Stop: 07/22/20 20:59 Last Admin: 06/23/20 19:55 Dose: Not Given Documented by: Famotidine (Famotidine 20 Mg Tab) 20 mg PO [facility] Stop: 07/22/20 08:59 Last Admin: 06/23/20 07:32 Dose: 20 mg Documented by: Ferrous Sulfate (Ferrous Sulfate 325 Mg Tab) 325 [facility] [place] [place] Stop: 07/22/20 12:59 Last Admin: 06/23/20 07:32 Dose: 325 mg Documented by: Fluticasone Propionate (Fluticasone Propionate Na Spr 16 Gm Btl) 2 sprays NA DAILY PRN PRN Reason: Allergy Symptoms Stop: 07/22/20 05:43 Glucagon (Glucagon For Inj 1 Mg Vial) 1 mg SQ UD PRN; Protocol PRN Reason: Hypoglycemia Protocol Stop: 07/22/20 06:27 Glucose (Glucose 10 Tabs/Tube) 4 - 8 tabs PO UD PRN; Protocol PRN Reason: Hypoglycemia Protocol Stop: 07/22/20 06:27 Glucose (Glucose 40% Gel 15 Gm Tube) 15 - 30 gm PO UD PRN; Protocol PRN Reason: Hypoglycemia Protocol Stop: 07/22/20 06:27 Sodium Chloride (Nss) 250 mls @ 15 mls/hr IV .[id number] PRN PRN Reason: For Transfusion Stop: 07/22/20 05:43 Insulin Aspart (Insulin Aspart 100 Units/Ml 3 Ml Pen) 0 units SC [facility] Stop: 07/22/20 07:29 Last Admin: 06/23/20 20:20 Dose: 3 units Documented by: Lorazepam (Lorazepam 0.5 Mg Tab) 0.5 mg PO DAILY PRN PRN Reason: anxiety Stop: 07/22/20 05:43 Metoprolol Tartrate (Metoprolol Tartrate 1 Mg/Ml Vial) 5 mg IV Q5M PRN PRN Reason: Tachycardia Stop: 07/22/20 03:46 Last Admin: 06/22/20 04:52 Dose: 5 mg Documented by: Miscellaneous (Carbohydrates For Hypoglycemia ) 15 - 30 gm PO UD PRN PRN Reason: Hypoglycemia Protocol Stop: 07/22/20 06:27 Ondansetron HCl (Ondansetron Inj 2 Mg/Ml 2 Ml Vial) 4 mg IV Q6H PRN PRN Reason: Nausea Stop: 07/22/20 05:43 Last Admin: 06/22/20 11:26 Dose: 4 mg Documented by: Oxycodone/Acetaminophen (Oxycodone/Acetaminophen 5mg/325mg Tab) 1 tab PO Q4H PRN PRN Reason: moderate pain Stop: 07/06/20 05:43 Last Admin: 06/23/20 09:50 Dose: 1 tab Documented by: Polyethylene Glycol (Polyethylene (Miralax) 17 Gm Pack) 17 gm PO DAILY PRN PRN Reason: Constipation Stop: 07/22/20 05:43 Last Admin: 06/23/20 07:43 Dose: 17 gm Documented by: Sennosides (Senna 8.6 Mg Tab) 8.6 mg PO QAM TY Stop: 07/22/20 12:59 Last Admin: 06/23/20 07:31 Dose: 8.6 mg Documented by: PG Care Time/CCT Total # of Minutes Spent Total Time Spent with Patient: Total time spent is greater than 50% in coordination of care (as documented) at patient's floor/unit and/or counseling patient: Coding Level of Care Code 15995 Subseq Hosp Care Lvl 2 Diagnoses Atrial fibrillation with rapid ventricular response I48.91 Symptomatic anemia D64.9 Posterior tibial tendon dysfunction (PTTD) of right lower extremity M76.821 Paroxysmal atrial fibrillation I48.0 Anemia D64.9 Type 2 diabetes mellitus E11.9 Hypertension I10 Hypertension type: unspecified Dyslipidemia E78.5 (1) Hypertension Hypertension type: unspecified Qualified Code(s): I10 - Essential (primary) hypertension
[2020-06-24] MEDS: AMIODARONE 200 MG TAB PO SCH (08:08)
[2020-06-24] MEDS: SENNA 8.6 MG TAB PO SCH (08:08)
[2020-06-24] MEDS: FERROUS SULFATE 325 MG TAB PO SCH (08:08)
[2020-06-24] MEDS: ASCORBIC ACID 500 MG TAB PO SCH (08:08)
[2020-06-24] MEDS: FAMOTIDINE 20 MG TAB PO SCH (08:09)
[2020-06-24] MEDS: INSULIN ASPART 100 UNITS/ML 3 ML PEN SC SCH ×4 (08:09→20:21)
[2020-06-24 08:31] LABS: Basophils # (auto) 0.06 K/uL (0-0.2); Basophils % (auto) 0.5 %; Eosinophils # (auto) 0.16 K/uL (0-0.5); Eosinophils % (auto) 1.4 %; Hematocrit (blood only) 29.3 % (37-47); Immature Granulocytes # (auto) 0.01 K/uL (0.00-0.02); Immature Granulocytes % (auto) 0.1 %; Lymphocytes # (auto) 1.18 K/uL (1.2-3.4); Lymphocytes % (auto) 10.2 %; Mean Corpuscular Hemoglobin 24.1 pg (25-34); Mean Corpuscular Volume 78.3 fL (80-100); Mean Platelet Volume 9.7 fL (7.4-10.4); Monocytes # (auto) 1.29 K/uL (0.11-0.59); Monocytes % (auto) 11.2 %; Neutrophils # (auto) 8.83 K/uL (1.4-6.5); Neutrophils % (auto) 76.6 %; Platelet Count 374 K/uL (130-400); RDW Standard Deviation 50.6 fL (36.4-46.3); Red Blood Count 3.74 M/uL (4.2-5.4); White Blood Count 11.53 K/uL (4.8-10.8)
[2020-06-24 08:33] LABS: Mean Corpuscular Hgb Conc 30.7 g/dL (32-36)
[2020-06-24 10:25] LABS: BUN Creatinine Ratio 20.8 (10-20); Calcium 9.5 mg/dl (8.5-10.1); Creatinine Clr Calc Pharmacy 39.3 ml/min; Est GFR (Non-African American) 53.5; Potassium 4.4 mmol/L (3.5-5.1)
[2020-06-24] MEDS: RIVAROXABAN 15 MG TAB PO SCH (10:40)
[2020-06-24] MEDS: POLYETHYLENE (MIRALAX) 17 GM PACK PO SCH (17:13)
[2020-06-24] MEDS: ATORVASTATIN 10 MG TAB PO SCH (20:16)
[2020-06-24] MEDS: DICLOFENAC SOD 1% GEL 100 GM TUBE EXT SCH (20:17)
[2020-06-25 06:42] LABS: Hematocrit (blood only) 30.1 % (37-47); Hemoglobin 9.3 g/dL (12.0-16.0); Mean Corpuscular Hemoglobin 24.3 pg (25-34); Mean Corpuscular Hgb Conc 30.9 g/dL (32-36); Mean Corpuscular Volume 78.8 fL (80-100); Mean Platelet Volume 9.6 fL (7.4-10.4); Platelet Count 386 K/uL (130-400); RDW Coefficient of Variation 18.9 % (11.5-14.5); RDW Standard Deviation 52.1 fL (36.4-46.3); Red Blood Count 3.82 M/uL (4.2-5.4); White Blood Count 10.22 K/uL (4.8-10.8)
[2020-06-25 07:16] LABS: BUN Creatinine Ratio 25.6 (10-20); Calcium 9.3 mg/dl (8.5-10.1); Creatinine Clr Calc Pharmacy 42.2 ml/min; Est GFR (African American) 67.1; Est GFR (Non-African American) 57.9; Magnesium 2.2 mg/dl (1.8-2.4); Phosphorus 2.8 mg/dl (2.5-4.9); Potassium 4.1 mmol/L (3.5-5.1)
[2020-06-25] MEDS: ACETAMINOPHEN 500 MG TAB PO PRN ×3 (07:47→20:30)
[2020-06-25] MEDS: ASCORBIC ACID 500 MG TAB PO SCH (07:48)
[2020-06-25] MEDS: SENNA 8.6 MG TAB PO SCH (07:48)
[2020-06-25] MEDS: FERROUS SULFATE 325 MG TAB PO SCH (07:48)
[2020-06-25] MEDS: AMIODARONE 200 MG TAB PO SCH (07:49)
[2020-06-25] MEDS: FAMOTIDINE 20 MG TAB PO SCH (07:49)
[2020-06-25] MEDS: POLYETHYLENE (MIRALAX) 17 GM PACK PO SCH (07:49)
[2020-06-25] MEDS: INSULIN ASPART 100 UNITS/ML 3 ML PEN SC SCH ×4 (07:51→21:14)
[2020-06-25] MEDS ORDERED: bisacodyL 10 MG SUPP PR STA (11:55)
[2020-06-25] MEDS: LOSARTAN POTASSIUM 25 MG TAB PO SCH (12:57)
--- NOTE | 2020-06-25 14:38 | Hospitalist Progress Note ---
Date of Service June 25, 2020 Assessment & Plan (1) Atrial fibrillation with rapid ventricular response: Patient on arrival with heart rate in 130s, down to 90s after receiving Lopressor 5 mg IV x1 as well as starting infusion of PRBCs. Was recommended to be on amiodarone 200 mg daily in the outpatient setting, however refused secondary to desire not to be on medications. Started QD on admission Lopressor 5 mg IV as needed HR > 110. Holding Xarelto given symptomatic anemia Trop neg Pt with hx of cardioversion with Dr. Molina 02/2020. She states she believes she has been in NSR since that time until admission 2-9 rate controlled on amio restarted xarelto 15mg renally dosed per pharmacy recs (2) Symptomatic anemia: Patient has a history of anemia, with baseline seemingly in the 910 range. On day of surgery 06/20/2020 patient was noted to have a hemoglobin of 7.8. On admission, patient symptomatic with A. fib with RVR with a hemoglobin of 7.4. s/p 2U PRBCs on 06/22. Recheck H/H has continued to improve Iron noted low with borderline high TIBC and low MCV Started QD iron with vitamin C If tolerating after a few weeks, can increase to BID Pt denies hx of iron use in the past If Hb is stable tomorrow, can resume xarelto 2-9 restarted xarelto 2-10 Hg stable (3) Hypertension: Patient is on several medications at home, however due to initial presentation and BP 100/60s have held home medications. Can add as tolerated. 2-10 BP has increased significantly, 152/71 resume ARB (losartan as candesartan nonformulary) stop bystolic in setting of amio for afib resume triam-hctz hold off on felodipine for now (4) Posterior tibial tendon dysfunction (PTTD) of right lower extremity: Ortho c/s given OR on 06/20 Planning for PT/OT 2- was denied from [facility], so will likely need SNF (5) Type 2 diabetes mellitus: Patient not on any medications at home. BSG 150s on admission. Defer to PCP regarding medication control. SSI while admitted. (6) Dyslipidemia: Continue home atorvastatin. Pt awaiting auth for rehab Admission and Anticipated Discharge Date Admission Date: June 24, 2020 Subjective Patient reports constipation, asking for a suppository. Denies palpitations Asking about her BP meds Denies headache, chest pain Denies abd pain, nausea, vomiting Slept ok -- sleep was interrupted by bringing in roommate Review of Systems Constitutional: no fever, no chills, no fatigue, no weakness, no anorexia, no weight loss and no weight gain Ear, Nose, Mouth, Throat: no nasal congestion, no sore throat and no dysphagia Respiratory: no cough and no dyspnea Cardiovascular: no chest pain, no dyspnea on exertion, no orthopnea and no palpitations Gastrointestinal: + constipation; no abdominal pain, no nausea, no vomiting, no hematemesis, no dysphagia, no diarrhea/loose stools, no blood in stools and no melena Genitourinary: no dysuria, no urinary frequency, no hematuria and no flank pain Musculoskeletal: no back pain, no joint pain, no myalgia and no muscle weakness Integumentary: no rash, no lesions, no skin ulcer, no erythema, no dry skin and no pruritus Neurologic: no falls, no localized weakness, no generalized weakness, no numbness, no paresthesia, no tremor(s) and no headache(s) Psychiatric: no depression, no suicidal ideation, no homicidal ideation and no anxiety Endocrine: no cold intolerance and no heat intolerance Hematologic / Lymphatic: no easy bleeding and no easy bruising Physical Exam Constitutional: well developed and well nourished; no acute distress Eyes: PERRL, conjunctivae normal, anicteric sclerae ENMT: Mouth: oral mucous membranes not dry Respiratory: normal respiratory effort; no respiratory distress and no labored breathing Auscultation: lungs clear to auscultation bilaterally; no crackles, no rales, no rhonchi and no wheezes Cardiovascular: Rate/Rhythm: regular rate and regular rhythm Heart Sounds: no murmur and no cardiac rub Vessels: normal peripheral pulses and radial pulses present; no JVD Extremities: + edema Gastrointestinal (Abdomen): Inspection/Auscultation: abdomen normal to inspection and normal bowel sounds; abdomen not distended Percussion/Palpation: abdomen soft; abdomen nontender, no guarding, abdomen not rigid and no hepatosplenomegaly Musculoskeletal: Head/Neck/Chest: normocephalic and head atraumatic Spine: no cervical spinal tenderness, no cervical muscular tenderness, no thoracic spinal tenderness and no lumbar spinal tenderness Extremities: + foot abnormality (right foot and ankle in boot) Right Skin: no rashes, warm and dry Neurologic: CN's II-XI intact bilaterally and moves all extremities Motor/Sensory: no tremor and no sensory deficit Psychiatric: Orientation: alert, oriented to person, oriented to place and oriented to time Apperance: appropriately groomed; not disheveled Affect: euthymic affect; no anxious affect and no tearful affect Genitourinary: no CVA tenderness Results & Data Results & Data ([facility]) Vital Signs (Past 12 Hours) Vital Signs Temp Pulse Resp BP Pulse Ox 06/25/20 11:10 36.7 C 67 18 152/71 H 97 06/25/20 07:17 36.9 C 78 18 178/67 H 97 06/25/20 05:00 36.4 C L 70 18 161/74 H 97 Laboratory Results Abnormal lab results 06/22/20 06/24/20 06/24/20 Range/Units 04:34 16:28 20:20 RBC (4.2-5.4) M/uL Hgb (12.0-16.0) g/dL Hct (37-47) % MCV (80-100) fL MCH (25-34) pg MCHC (32-36) g/dL RDW Std Deviation (36.4-46.3) fL RDW Coeff of Paco (11.5-14.5) % BUN (7-18) mg/dl BUN/Creatinine Ratio (10-20) POC Glucose 108 H 123 H (70-99) mg/dl Crossmatch See Detail 06/25/20 06/25/20 06/25/20 Range/Units 06:22 06:22 07:19 RBC 3.82 L (4.2-5.4) M/uL Hgb 9.3 L (12.0-16.0) g/dL Hct 30.1 L (37-47) % MCV 78.8 L (80-100) fL MCH 24.3 L (25-34) pg MCHC 30.9 L (32-36) g/dL RDW Std Deviation 52.1 H (36.4-46.3) fL RDW Coeff of Paco 18.9 H (11.5-14.5) % BUN 23 H (7-18) mg/dl BUN/Creatinine Ratio 25.6 H (10-20) POC Glucose 110 H (70-99) mg/dl Crossmatch 06/25/20 Range/Units 11:13 RBC (4.2-5.4) M/uL Hgb (12.0-16.0) g/dL Hct (37-47) % MCV (80-100) fL MCH (25-34) pg MCHC (32-36) g/dL RDW Std Deviation (36.4-46.3) fL RDW Coeff of Paco (11.5-14.5) % BUN (7-18) mg/dl BUN/Creatinine Ratio (10-20) POC Glucose 148 H (70-99) mg/dl Crossmatch Medications Administered Current Inpatient Medications Acetaminophen (Acetaminophen 500 Mg Tab) 1,000 mg PO Q8H PRN PRN Reason: Pain Stop: 07/22/20 05:54 Last Admin: 06/25/20 07:47 Dose: 1,000 mg Documented by: Amiodarone HCl (Amiodarone 200 Mg Tab) 200 mg PO DAILY TY Stop: 07/22/20 08:59 Last Admin: 06/25/20 07:49 Dose: 200 mg Documented by: Ascorbic Acid (Ascorbic Acid 500 Mg Tab) 500 mg PO QAM [facility] Stop: 07/22/20 12:59 Last Admin: 06/25/20 07:48 Dose: 500 mg Documented by: Atorvastatin Calcium (Atorvastatin 10 Mg Tab) 10 mg PO PM TY Stop: 07/22/20 20:59 Last Admin: 06/24/20 20:16 Dose: 10 mg Documented by: Dextrose (Dextrose 50% 50 Ml Syringe) 25 - 50 ml IV UD PRN; Protocol PRN Reason: Hypoglycemia Protocol Stop: 07/22/20 06:27 Diclofenac Sodium (Diclofenac Sod 1% Gel 100 Gm Tube) 2 gm EXT HS TY Stop: 07/22/20 20:59 Last Admin: 06/24/20 20:17 Dose: 2 gm Documented by: Famotidine (Famotidine 20 Mg Tab) 20 mg PO QAM TY Stop: 07/22/20 08:59 Last Admin: 06/25/20 07:49 Dose: 20 mg Documented by: Ferrous Sulfate (Ferrous Sulfate 325 Mg Tab) 325 mg PO QAM [facility] Stop: 07/22/20 12:59 Last Admin: 06/25/20 07:48 Dose: 325 mg Documented by: Fluticasone Propionate (Fluticasone Propionate Na Spr 16 Gm Btl) 2 sprays NA DAILY PRN PRN Reason: Allergy Symptoms Stop: 07/22/20 05:43 Glucagon (Glucagon For Inj 1 Mg Vial) 1 mg SQ UD PRN; Protocol PRN Reason: Hypoglycemia Protocol Stop: 07/22/20 06:27 Glucose (Glucose 10 Tabs/Tube) 4 - 8 tabs PO UD PRN; Protocol PRN Reason: Hypoglycemia Protocol Stop: 07/22/20 06:27 Glucose (Glucose 40% Gel 15 Gm Tube) 15 - 30 gm PO UD PRN; Protocol PRN Reason: Hypoglycemia Protocol Stop: 07/22/20 06:27 Sodium Chloride (Nss) 250 mls @ 15 mls/hr IV .[id number] PRN PRN Reason: For Transfusion Stop: 07/22/20 05:43 Insulin Aspart (Insulin Aspart 100 Units/Ml 3 Ml Pen) 0 units SC ACHS [facility] Stop: 07/22/20 07:29 Last Admin: 06/25/20 11:46 Dose: 3 units Documented by: Lorazepam (Lorazepam 0.5 Mg Tab) 0.5 mg PO DAILY PRN PRN Reason: anxiety Stop: 07/22/20 05:43 Losartan Potassium (Losartan Potassium 25 Mg Tab) 25 mg PO QAM [facility] Stop: 07/25/20 11:59 Last Admin: 06/25/20 12:57 Dose: 25 mg Documented by: Metoprolol Tartrate (Metoprolol Tartrate 1 Mg/Ml Vial) 5 mg IV Q5M PRN PRN Reason: Tachycardia Stop: 07/22/20 03:46 Last Admin: 06/22/20 04:52 Dose: 5 mg Documented by: Miscellaneous (Carbohydrates For Hypoglycemia ) 15 - 30 gm PO UD PRN PRN Reason: Hypoglycemia Protocol Stop: 07/22/20 06:27 Miscellaneous (Nebivolol 20 Mg~Order Awaiting Action) 1 ea N/A QS [facility] Stop: 07/25/20 15:59 Ondansetron HCl (Ondansetron Inj 2 Mg/Ml 2 Ml Vial) 4 mg IV Q6H PRN PRN Reason: Nausea Stop: 07/22/20 05:43 Last Admin: 06/22/20 11:26 Dose: 4 mg Documented by: Oxycodone/Acetaminophen (Oxycodone/Acetaminophen 5mg/325mg Tab) 1 tab PO Q4H PRN PRN Reason: moderate pain Stop: 07/06/20 05:43 Last Admin: 06/23/20 09:50 Dose: 1 tab Documented by: Polyethylene Glycol (Polyethylene (Miralax) 17 Gm Pack) 17 gm PO DAILY PRN PRN Reason: Constipation Stop: 07/22/20 05:43 Last Admin: 06/23/20 07:43 Dose: 17 gm Documented by: Polyethylene Glycol (Polyethylene (Miralax) 17 Gm Pack) 17 gm PO DAILY [facility] Stop: 07/24/20 16:29 Last Admin: 06/25/20 07:49 Dose: 17 gm Documented by: Rivaroxaban (Rivaroxaban 20 Mg Tab) 20 mg PO QDD [facility] Stop: 07/25/20 16:29 Sennosides (Senna 8.6 Mg Tab) 8.6 mg PO QAM [facility] Stop: 07/22/20 12:59 Last Admin: 06/25/20 07:48 Dose: 8.6 mg Documented by: PG Care Time/CCT Total # of Minutes Spent Total Time Spent with Patient: Total time spent is greater than 50% in coordination of care (as documented) at patient's floor/unit and/or counseling patient: Coding Level of Care Code 05657 Subseq Hosp Care Lvl 2 Diagnoses Atrial fibrillation with rapid ventricular response I48.91 Symptomatic anemia D64.9 Hypertension I10 Hypertension type: unspecified Posterior tibial tendon dysfunction (PTTD) of right lower extremity M76.821 Type 2 diabetes mellitus E11.9 Dyslipidemia E78.5 (1) Hypertension Hypertension type: unspecified Qualified Code(s): I10 - Essential (primary) hypertension
[2020-06-25] MEDS: TRIAMTERENE/HCTZ 37.5/25MG TAB PO SCH (15:38)
[2020-06-25] MEDS ORDERED: RIVAROXABAN 20 MG TAB PO SCH (16:30)
[2020-06-25] MEDS: RIVAROXABAN 15 MG TAB PO SCH (16:54)
[2020-06-25] MEDS: ATORVASTATIN 10 MG TAB PO SCH (20:29)
[2020-06-25] MEDS: DICLOFENAC SOD 1% GEL 100 GM TUBE EXT SCH (20:30)
[2020-06-26] MEDS: ACETAMINOPHEN 500 MG TAB PO PRN ×2 (04:57→13:58)
[2020-06-26 06:15] LABS: Hematocrit (blood only) 30.4 % (37-47); Hemoglobin 9.3 g/dL (12.0-16.0); Mean Corpuscular Hemoglobin 24.3 pg (25-34); Mean Corpuscular Hgb Conc 30.6 g/dL (32-36); Mean Corpuscular Volume 79.4 fL (80-100); Mean Platelet Volume 9.2 fL (7.4-10.4); Platelet Count 389 K/uL (130-400); RDW Coefficient of Variation 19.3 % (11.5-14.5); Red Blood Count 3.83 M/uL (4.2-5.4); White Blood Count 8.62 K/uL (4.8-10.8)
[2020-06-26 06:50] LABS: BUN Creatinine Ratio 26.7 (10-20); Calcium 9.2 mg/dl (8.5-10.1); Creatinine Clr Calc Pharmacy 40.6 ml/min; Est GFR (African American) 63.6; Est GFR (Non-African American) 54.9; Magnesium 2.2 mg/dl (1.8-2.4)
[2020-06-26 06:51] LABS: Phosphorus 3.3 mg/dl (2.5-4.9)
[2020-06-26] MEDS: LOSARTAN POTASSIUM 25 MG TAB PO SCH (07:50)
[2020-06-26] MEDS: FERROUS SULFATE 325 MG TAB PO SCH (07:50)
[2020-06-26] MEDS: FAMOTIDINE 20 MG TAB PO SCH (07:51)
[2020-06-26] MEDS: SENNA 8.6 MG TAB PO SCH (07:51)
[2020-06-26] MEDS: TRIAMTERENE/HCTZ 37.5/25MG TAB PO SCH (07:51)
[2020-06-26] MEDS: POLYETHYLENE (MIRALAX) 17 GM PACK PO SCH (07:51)
[2020-06-26] MEDS: AMIODARONE 200 MG TAB PO SCH (07:51)
[2020-06-26] MEDS: ASCORBIC ACID 500 MG TAB PO SCH (07:51)
[2020-06-26] MEDS: INSULIN ASPART 100 UNITS/ML 3 ML PEN SC SCH ×2 (07:57→12:04)
--- NOTE | 2020-06-26 12:46 | Discharge Summary ---
Date of Service June 26, 2020 Admission HPI Per Admitting Provider Palpitations 89-year-old female past medical history significant for paroxysmal A. fib currently not on medications, anemia, DM 2, HTN, HLD, DCIS s/p mastectomy, right posterior tibial tendon tear s/p repair on 06/20/2020 presented to the ER for palpitations that awoke her from sleep at around 1:30 AM this morning. Of note, she does have amiodarone 200 mg as needed at home, but she did not take this medication prior to arrival. She reports that she was supposed to take amiodarone 200 mg daily, however due to "not really wanting to take medications that have side effects like that" she was prescribed on a as n eeded basis. Also of note, 2 days ago she underwent right posterior tibial tendon repair. At that time her hemoglobin was noted to be 7.8. She is on chronic Xarelto therapy for her A. fib, which she just resumed yesterday evening. In the ER patient was found to have HR 133, EKG showed A. fib with RVR. She was given Lopressor 5 mg IV x1 prior to return of lab work. CBC showed hemoglobin of 7.4, WBC 12.38, MCV 75.8. Patient was consented for blood, ordered a total of 2 units. On my interview patient denies chest pain, sensation of palpations, shortness of breath, dizziness, headache, abdominal pain, recent fevers or chills. She does report some RLE pain however this is not changed since her surgery. At time of my interview, patient's heart rate was 105. Principal Diagnosis atrial fibrillation with RVR right ankle surgery Discharge Exam Constitutional well developed and well nourished; no acute distress Eyes PERRL, conjunctivae normal, anicteric sclerae ENMT Mouth: oral mucous membranes not dry Respiratory normal respiratory effort; no respiratory distress and no labored breathing Auscultation: lungs clear to auscultation bilaterally; no crackles, no rales, no rhonchi and no wheezes Cardiovascular Rate/Rhythm: regular rate and regular rhythm Heart Sounds: no murmur and no cardiac rub Vessels: normal peripheral pulses and radial pulses present; no JVD Extremities: + edema Gastrointestinal (Abdomen) Inspection/Auscultation: abdomen normal to inspection and normal bowel sounds; abdomen not distended Percussion/Palpation: abdomen soft; abdomen nontender, no guarding, abdomen not rigid and no hepatosplenomegaly Musculoskeletal Head/Neck/Chest: normocephalic and head atraumatic Spine: no cervical spinal tenderness, no cervical muscular tenderness, no thoracic spinal tenderness and no lumbar spinal tenderness Extremities: + foot abnormality (right foot and ankle in boot) Skin no rashes, warm and dry Neurologic CN's II-XI intact bilaterally and moves all extremities Motor/Sensory: no tremor and no sensory deficit Psychiatric Orientation: alert, oriented to person, oriented to place and oriented to time Apperance: appropriately groomed; not disheveled Affect: euthymic affect; no anxious affect and no tearful affect Genitourinary no CVA tenderness Discharge Data Allergies Allergy/AdvReac Type Severity Reaction Status Date / Time phenobarbital Allergy Intermediate hives Verified 06/20/20 09:08 amlodipine Allergy Unknown Unknown Verified 06/20/20 09:08 benazepril Allergy Unknown Unknown Verified 06/20/20 09:08 enalapril Allergy Unknown Unknown Verified 06/20/20 09:08 lisinopril Allergy Unknown Unknown Verified 06/20/20 09:08 simvastatin Allergy Unknown Unknown Verified 06/20/20 09:08 spironolactone Allergy Unknown Unknown Verified 06/20/20 09:08 codeine AdvReac Mild headache, Verified 06/20/20 09:08 N/V hydrocodone AdvReac Mild N/V Verified 06/20/20 09:08 tramadol AdvReac Mild nausea Verified 06/20/20 09:08 ciprofloxacin AdvReac Unknown dizziness Verified 06/16/20 11:26 metoprolol AdvReac Unknown dizziness, Verified 06/16/20 11:26 depression Consultations 06/22/20 04:30 ED Decision to Admit Stat 06/22/20 05:44 Consult Orthopedic Surgery Routine Hospital Course (1) Atrial fibrillation with rapid ventricular response: Patient on arrival with heart rate in 130s, down to 90s after receiving Lopressor 5 mg IV x1 as well as starting infusion of PRBCs. Was recommended to be on amiodarone 200 mg daily in the outpatient setting, however refused secondary to desire not to be on medications. Started QD on admission Lopressor 5 mg IV as needed HR > 110. Holding Xarelto given symptomatic anemia Trop neg Pt with hx of cardioversion with Dr. Molina 02/2020. She states she believes she has been in NSR since that time until admission 2-9 rate controlled on amio restarted xarelto 15mg renally dosed per pharmacy recs (2) Symptomatic anemia: Patient has a history of anemia, with baseline seemingly in the 910 range. On day of surgery 06/20/2020 patient was noted to have a hemoglobin of 7.8. On admission, patient symptomatic with A. fib with RVR with a hemoglobin of 7.4. s/p 2U PRBCs on 06/22. Recheck H/H has continued to improve Iron noted low with borderline high TIBC and low MCV Started QD iron with vitamin C If tolerating after a few weeks, can increase to BID Pt denies hx of iron use in the past If Hb is stable tomorrow, can resume xarelto 2-9 restarted xarelto 2-10 Hg stable (3) Hypertension: Patient is on several medications at home, however due to initial presentation and BP 100/60s have held home medications. Can add as tolerated. 2-10 BP has increased significantly, 152/71 resume ARB (losartan as candesartan nonformulary) stop bystolic in setting of amio for afib resume triam-hctz hold off on felodipine for now 2-11 BP well controlled (4) Posterior tibial tendon dysfunction (PTTD) of right lower extremity: Ortho c/s given OR on 06/20 Planning for PT/OT 2-9 was denied from [facility], so will likely need SNF 2-11 going to SNF today for rehab (5) Type 2 diabetes mellitus: Patient not on any medications at home. BSG 150s on admission. Defer to PCP regarding medication control. SSI while admitted. (6) Dyslipidemia: Continue home atorvastatin. Total Time Total Time Spent Total Time Spent (In Minutes): 40 Total Time Includes: Examination of the Patient, Discharge Planning, Medication Reconciliation and Communication With Other Providers Discharge Plan Discharge Items Patient Disposition: Transfer [facility] Reason For Visit: AFIB W/ RVR, SYMPTOMATIC ANEMIA Discharge Diagnosis: atrial fibrillation with rapid rate right posterior tibial dysfunction with reconstruction Activity: As commented below Non-emergency contact: Primary Care Provider Call non-emergency contact if: you have any medication questions Follow-up/Referrals: Giana Downey MD [Primary Care Provider] - (within one week of discharge) Ronen Zambrano PA-C [Physician Inspector [place]] - (2 weeks after discharge -- previously scheduled appointment) Diet: Carb Consistent or DM2 Addtl Attending Provider Instructions: Your atrial fibrillation was uncontrolled Start taking amiodarone daily Continue taking xarelto, but your dose was decreased to 15mg which is based upon the drug company's recommended dosing for your kidney function Your blood pressure was high, but not as high as it has been in the past Continue taking candesartan Continue triamterene-HCTZ Stop clonidine Stop bystolic Stop felodipine For your posterior tibial reconstruction: Nonweightbearing right lower extremity at all times. Splint to remain in place at all times over the next 2 weeks. PT/OT for gait training. See orthopedics in 2 weeks Pending Studies at Discharge: No Stand-Alone Forms: My [facility] Skilled Items Patient informed of condition?: Yes DNR: No Discharge Level of Care: Skilled Communicable Disease: No Discharge Prognosis: Stable Lines: None Urinary Catheter: No Medications and DC Order Prescriptions: New ferrous sulfate 325 mg (65 mg iron) Tablet,Delayed Release (Dr/Ec) 325 mg PO QAM Qty: 30 RF: 0 Xarelto 15 mg Tablet 15 mg PO QDD Qty: 30 RF: 3 amiodarone 200 mg Tablet 200 mg PO DAILY Qty: 30 RF: 3 Continued triamterene-hydrochlorothiazid 37.5-25 mg capsule 1 cap PO QAM Qty: 90 RF: 3 diclofenac sodium 1 % kit 2 g topical HS RF: 0 biotin 5 mg capsule 5 mg PO QAM RF: 0 lorazepam [Ativan] 0.5 mg tablet 0.5 mg PO DAILY PRN (Reason: anxiety) Qty: 20 RF: 0 famotidine 20 mg Tablet 20 mg PO QAM RF: 0 cholecalciferol (vitamin D3) [Vitamin D3] 2,000 unit Capsule 2,000 unit PO QAM RF: 0 magnesium chloride [Mag 64] 64 mg Tablet,Delayed Release (Dr/Ec) 64 mg PO QAM RF: 0 atorvastatin 10 mg tablet 10 mg PO PM RF: 0 candesartan 32 mg tablet 32 mg PO QAM RF: 0 fluticasone propionate [Flonase Allergy Relief] 50 mcg/actuation spray,suspension 2 sprays INTRANASAL DAILY PRN (Reason: Allergy Symptoms) RF: 0 acetaminophen [Tylenol Extra Strength] 500 mg Tablet 1,000 mg PO Q6H PRN (Reason: Pain) RF: 0 amiodarone 200 mg tablet 200 mg PO DAILY PRN (Reason: for a fib) RF: 0 oxycodone-acetaminophen [Percocet] 5-325 mg Tablet 1 tab PO Q4H PRN (Reason: pain) Qty: 20 RF: 0 Discontinued clonidine HCl 0.1 mg tablet 0.1 mg PO BID Qty: 180 RF: 3 Bystolic 20 mg tablet 20 mg PO QAM Qty: 90 RF: 1 felodipine 5 mg tablet extended release 24 hr 5 mg PO BID RF: 0 Xarelto 20 mg Tablet 20 mg PO PM Qty: 0 RF: 0 Discharge Orders: Discharge Order (Routine); Ordered 06/26/20 Ordered By: Sharon Lazaro Admission Data Admit Date/Time: 06/24/20 09:30 Attending Provider: Sharon Lazaro Admit Provider: Carey Lira Primary Care Provider: Giana Downey Other Providers: Milan Lucio ; Asa Lopez ; [facility] ; [facility] Coding Level of Care Code D/C Day Management >30 mins Diagnoses Atrial fibrillation with rapid ventricular response I48.91 Symptomatic anemia D64.9 Hypertension I10 Hypertension type: unspecified Posterior tibial tendon dysfunction (PTTD) of right lower extremity M76.821 Type 2 diabetes mellitus E11.9 Dyslipidemia E78.5
== END 2020-06-26 14:24 ==
LOC: ED 03:30 → 2S 03:30 → SUATTDRO 05:08 → 2S 05:35